=== PATIENT | female | born 1930 | race Caucasian/White ===

== ENCOUNTER 2017-09-25 08:00 | Outpatient (CLI) | payer MEDICARE, OTHER ==
[2017-09-25 12:59] LABS: BASOPHILS # (AUTO) 0.1 10^3/uL (0.0-0.1); BASOPHILS % (AUTO) 2.4 %; EOSINOPHILS # (AUTO) 0.1 10^3/uL (0.0-0.7); EOSINOPHILS % (AUTO) 2.4 %; LYMPHOCYTES % (AUTO) 17.8 %; MEAN CORPUSCULAR HEMOGLOBIN 32.6 pg (27.0-31.0); MEAN CORPUSCULAR HGB CONC 34.3 g/dL (32.0-36.0); MEAN CORPUSCULAR VOLUME 95.1 fL (81.0-99.0); MONOCYTES # (AUTO) 0.5 10^3/uL (0.0-1.0); MONOCYTES % (AUTO) 8.6 %; NEUTROPHILS % (AUTO) 68.8 %; PLT - PLATELET COUNT 225 10^3/uL (130-450); RED BLOOD COUNT 3.98 10^6/uL (4.20-5.40); RED CELL DISTRIBUTION WIDTH 13.5 % (12.0-15.0); WHITE BLOOD COUNT 5.8 x10^3/uL (4.8-10.8)
[2017-09-25 13:26] LABS: ALBUMIN 3.9 g/dL (3.2-5.5); ALBUMIN/GLOBULIN RATIO 1.4 (1.0-2.2); BILIRUBIN,TOTAL 0.4 mg/dL (0.2-1.0); CALCIUM 8.8 mg/dL (8.5-10.3); CREATININE 0.6 mg/dL (0.4-1.0); TOTAL PROTEIN 6.6 g/dL (6.7-8.2)
== END 2017-09-25 08:01 | disposition home or self-care (01) ==
LOC: LAB.R 08:00
PROVIDERS: ATTEND Internal Medicine
DX: R03.0 Elevated blood-pressure reading, without diagnosis of hypertension (principal)
CPT/HCPCS: 80053; 85025

== ENCOUNTER 2018-05-06 09:32 | Outpatient (CLI) | payer MEDICARE, OTHER ==
--- NOTE | 2018-05-06 09:57 | XRAY Report ---
Reason: PAIN LEFT WRIST Procedure Date: 05/06/2018 Accession Number: [id number] / [id number] Procedure: XR - Wrist 3 View LT CPT Code: FULL RESULT: EXAM: LEFT WRIST RADIOGRAPHY EXAM DATE: 05/06/2018 09:29 AM. CLINICAL HISTORY: PAIN LEFT WRIST and hand. Ground-level fall 4 days ago. COMPARISON: HAND 3 VIEW LT 05/06/2018. TECHNIQUE: 3 views. FINDINGS: Bones: Bones are diffusely demineralized. There is an acute fracture of the distal radial metaphysis. The fracture appears comminuted and likely extends to the distal articular surface. There is dorsal displacement of the distal fragment measuring approximately 17 mm. Dorsal angulation of the distal fragments measures approximately 22 degrees. There is impaction and shortening of the radius relative to the adjacent distal ulna. There is plate and screw hardware along the distal ulna consistent with prior fracture. No acute ulnar fracture visualized. Joints: The radiocarpal joint appears congruent. Soft Tissues: There is diffuse soft tissue swelling around the wrist. IMPRESSION: Acute displaced, impacted, and angulated comminuted fracture of the distal radius. There is probable intra-articular extension. RADIA
--- NOTE | 2018-05-06 10:00 | XRAY Report ---
Reason: PAIN LEFT WRIST Procedure Date: 05/06/2018 Accession Number: [id number] / [id number] Procedure: XR - Hand 3 View LT CPT Code: FULL RESULT: EXAM: LEFT HAND RADIOGRAPHY EXAM DATE: 05/06/2018 09:29 AM. CLINICAL HISTORY: PAIN LEFT WRIST AND HAND. GROUND-LEVEL FALL 4 DAYS AGO. COMPARISON: WRIST 3 VIEW LT 05/06/2018. TECHNIQUE: 3 views. FINDINGS: Bones: Diffusely demineralized. As seen on wrist radiographs, there is an acute comminuted impacted fracture of the distal radius with dorsal displacement and dorsal angulation of the distal fragment. There is plate and screw hardware along the distal ulna. The remainder of visualized bones of the hand appear intact. Joints: No dislocation. There are moderate to severe degenerative changes at multiple interphalangeal joints and metacarpophalangeal joints of the hand. Soft Tissues: There is soft tissue swelling around the wrist. IMPRESSION: 1. Acute, comminuted, impacted, displaced, and angulated fracture of the distal radius, as described on wrist radiographs. 2. The remainder of the visualized bones of the hand appear intact. Bones are diffusely demineralized. 3. 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 RADIA
== END 2018-05-06 09:33 | disposition home or self-care (01) ==
LOC: DI 09:32
PROVIDERS: ATTEND Internal Medicine
DX: S52.502A Unspecified fracture of the lower end of left radius, initial encounter for closed fracture (principal); M19.042 Primary osteoarthritis, left hand

== ENCOUNTER 2018-05-08 09:49 | Outpatient (CLI) | payer MEDICARE, OTHER | END 2018-05-08 09:50 | disposition critical access hospital (66) | LOC: EMS 09:49 | PROVIDERS: ATTEND Surgery | DX: M25.552 Pain in left hip (principal) | CPT/HCPCS: A0425; A0429 ==

== ENCOUNTER 2018-05-08 10:33 | Inpatient (IN) | payer MEDICARE, OTHER ==
[2018-05-08 11:21] LABS: BILIRUBIN,URINE NEGATIVE (NEGATIVE); GLUCOSE, URINE (UA) NEGATIVE (NEGATIVE); KETONES,URINE (UA) NEGATIVE (NEGATIVE); LEUKOCYTE ESTERASE, URINE MODERATE (NEGATIVE); NITRITE,URINE NEGATIVE (NEGATIVE); OCCULT BLOOD,URINE TRACE-INTA (NEGATIVE); PROTEIN,URINE NEGATIVE (NEGATIVE); UROBILINOGEN,URINE 0.2 (NORMAL) E.U./dL (NORMAL)
[2018-05-08 11:28] LABS: CLARITY,URINE CLEAR (CLEAR)
--- NOTE | 2018-05-08 11:38 | ED Physician Documentation ---
PD HPI LOWER EXT INJURY - Stated complaint Stated Complaint: HIP PX - Chief complaint Chief Complaint: Ext Problem - History obtained from History obtained from: Patient - History of Present Illness PD HPI LOW EXT INJURY LOCATION: Left, Hip Type of injury: Fall Where injury occurred: Home Timing - onset: How many days ago (5) Timing - duration: Days (5) Timing - details: Abrupt onset (She fell 5 days ago to her left side with a wrist injury and pain in her hip. She was helped by her back into the house. She has had a wrist deformity and waited to the next day to see her primary care. She had an outpatient wrist x-ray which showed a fracture and she was referred to orthopedics for reduction and splinting. She continued to have some limping pain on the left hip. This worsened today as she was standing up and felt an abrupt worsening of pain. She is now unable to walk on her left hip. She continues with the wrist splint on the left. She denies any injury to the abdomen chest or head.) Worsened by: Moving, Other (weight bearing, worse today) Associated symptoms: No: Weakness, Numbness Contributing factors: No: Anticoagulated, Prior ortho surgery Similar symptoms before: Has not had sx before Recently seen: Clinic (seen by PMD for the wrist injury after the fall, with Dx of wrist fracture and seen by Ortho for that, with splint.) Review of Systems Nose: denies: Rhinorrhea / runny nose, Congestion Throat: denies: Sore throat Respiratory: denies: Cough GI: denies: Abdominal Pain, Nausea, Vomiting, Diarrhea Musculoskeletal: reports: Extremity pain (left wrist and left hip) Neurologic: denies: Focal weakness, Numbness, Confused, Headache, Head injury Psychiatric: reports: Anxiety Endocrine: denies: Weight loss Immunocompromised: denies: Immunocompromised PD PAST MEDICAL HISTORY - Past Medical History Cardiovascular: None Respiratory: None Neuro: None Endocrine/Autoimmune: None HEENT: Glaucoma - Past Surgical History Past Surgical History: Yes 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, 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 HEENT: Tonsil/Adenoidectomy - Present Medications Home Medications: Ambulatory Orders Medication Instructions Recorded Confirmed Brimonidine 0.1% Ophth Drops 1 drop LEFTEYE BID 06/05/14 05/08/18 [Alphagan P 0.1% Ophth Drops] Latanoprost 0.005% Ophth Drops 1 drop LEFTEYE QPM 06/05/14 05/08/18 [Xalatan Ophth Drops] - Allergies Allergies/Adverse Reactions: Allergies Allergy/AdvReac Type Severity Reaction Status Date / Time Penicillins Allergy Hives Verified 06/05/14 09:47 Sulfa (Sulfonamide AdvReac Rash Verified 05/08/18 10:48 Antibiotics) - Living Situation Living Situation: reports: With spouse/s.o. Living Arrangement: reports: At home - Social History Does the pt smoke?: No Smoking Status: Never smoker Does the pt drink ETOH?: Yes Does the pt have substance abuse?: No PD ED PE NORMAL - Vitals Vital signs reviewed: Yes - General General: Alert and oriented X 3, No acute distress, Well developed/nourished - HEENT HEENT: Atraumatic - Neck Neck: Supple, no meningeal sign, No bony TTP, No adenopathy - Cardiac Cardiac: RRR, No murmur - Respiratory Respiratory: Clear bilaterally - Abdomen Abdomen: Normal bowel sounds, Soft, Non tender - Female Female : Deferred - Rectal Rectal: Deferred - Back Back: No CVA TTP, No spinal TTP - Derm Derm: Normal color, Warm and dry - Extremities Extremities: Other (Left wrist with splint in place, wrist tenderness and ecchymosis noted of wrist and dorsum hand. Has movement of fingers and good sensation. Left hip with pain on ROM and pain with impaction testing.) - Neuro Neuro: Alert and oriented X 3, No motor deficit, No sensory deficit, Normal speech Eye Opening: Spontaneous Motor: Obeys Commands Verbal: Oriented GCS Score: 15 - Psych Psych: Normal mood. No: Normal affect (anxious) Results - Vitals Vitals: Vital Signs - 24 hr 05/08/18 05/08/18 10:45 14:10 Temperature 36.3 C L Heart Rate 86 95 Respiratory 18 15 Rate Blood Pressure 195/88 H 155/77 H O2 Saturation 95 95 Oxygen O2 Source Room air - Labs Labs: Laboratory Tests 05/08/18 05/08/18 05/08/18 10:45 12:00 12:00 WBC 7.3 RBC 3.60 L Hgb 12.1 Hct 35.2 L MCV 98.0 MCH 33.6 H MCHC 34.3 RDW 13.1 Plt Count 245 MPV 7.7 L Neut # (Auto) 5.7 Lymph # (Auto) 0.7 L [place] # (Auto) 0.8 Eos # (Auto) 0.0 Baso # (Auto) 0.0 Absolute Nucleated RBC 0.00 Nucleated RBC % 0.0 PT 12.3 INR 1.1 APTT 24.7 L Sodium Potassium Chloride Carbon Dioxide Anion Gap BUN Creatinine Estimated GFR (MDRD) Glucose Calcium Total Bilirubin AST ALT Alkaline Phosphatase Total Protein Albumin Globulin Albumin/Globulin Ratio Lipase Urine Color YELLOW Urine Clarity CLEAR Urine pH 6.0 Ur Specific [place] <=1.005 Urine Protein NEGATIVE Urine Glucose (UA) NEGATIVE Urine Ketones NEGATIVE Urine Occult Blood TRACE-INTA Urine Nitrite NEGATIVE Urine Bilirubin NEGATIVE Urine Urobilinogen 0.2 (NORMAL) Ur Leukocyte Esterase MODERATE H Urine RBC 0-5 Urine WBC >25 H Urine WBC Clumps PRESENT Ur Squamous Epith Cells RARE Squamous Urine Bacteria Few Ur Microscopic Review INDICATED Urine Culture Comments INDICATED 05/08/18 12:00 WBC RBC Hgb Hct MCV MCH MCHC RDW Plt Count MPV Neut # (Auto) Lymph # (Auto) [place] # (Auto) Eos # (Auto) Baso # (Auto) Absolute Nucleated RBC Nucleated RBC % PT INR APTT Sodium 137 Potassium 3.6 Chloride 99 L Carbon Dioxide 26 Anion Gap 12.0 BUN 19 Creatinine 0.8 Estimated GFR (MDRD) 68 L Glucose 112 H Calcium 8.9 Total Bilirubin 1.0 AST 36 ALT 25 Alkaline Phosphatase 59 Total Protein 6.9 Albumin 3.7 Globulin 3.2 Albumin/Globulin Ratio 1.2 Lipase 34 Urine Color Urine Clarity Urine pH Ur Specific [place] Urine Protein Urine Glucose (UA) Urine Ketones Urine Occult Blood Urine Nitrite Urine Bilirubin Urine Urobilinogen Ur Leukocyte Esterase Urine RBC Urine WBC Urine WBC Clumps Ur Squamous Epith Cells Urine Bacteria Ur Microscopic Review Urine Culture Comments - Rads (name of study) left hip Radiology: Prelim report reviewed (left femoral neck fracture, displaced with shortening. ), EMP read contemporaneously PD MEDICAL DECISION MAKING - ED course Complexity details: reviewed results, re-evaluated patient, considered differential, d/w patient, d/w behavioral consultant (Dr. Banuelos) - Sepsis Event Vital Signs: Vital Signs - 24 hr 05/08/18 05/08/18 10:45 14:10 Temperature 36.3 C L Heart Rate 86 95 Respiratory 18 15 Rate Blood Pressure 195/88 H 155/77 H O2 Saturation 95 95 Oxygen O2 Source Room air Departure - Departure Disposition: 66 [facility] DC/Xfer Clinical Impression: Fall from slip, trip, or stumble Qualifiers: Encounter type: initial encounter Qualified Code(s): W01.0XXA - Fall on same level from slipping, tripping and stumbling without subsequent striking against object, initial encounter Femoral neck fracture Qualifiers: Encounter type: initial encounter Fracture type: closed Laterality: left Qualified Code(s): S72.002A - Fracture of unspecified part of neck of left femur, initial encounter for closed fracture Condition: Stable Record reviewed to determine appropriate education?: Yes
[2018-05-08 11:40] LABS: BACTERIA,URINE Few /HPF (None Seen); RBC,URINE 0-5 /HPF (0-5); SQUAMOUS EPITHELIAL CELL,UR RARE Squamous (<= Few); WBC CLUMPS,URINE PRESENT
[2018-05-08] MEDS ORDERED: ONDANSETRON 4 MG/2 ML VIAL IVP STA (11:45)
[2018-05-08] MEDS ORDERED: MORPHINE 10 MG/ML VIAL IVP STA ×2 (11:45→14:19)
--- NOTE | 2018-05-08 12:07 | XRAY Report ---
Reason: pain Procedure Date: 05/08/2018 Accession Number: [id number] / [id number] Procedure: XR - Hip w/Pelvis 2-3V LT CPT Code: FULL RESULT: EXAM: LEFT HIP AND PELVIS RADIOGRAPHY EXAM DATE: 05/08/2018 11:45 AM. HISTORY: Pain. COMPARISONS: None. TECHNIQUE: 1 view of the pelvis and 1 view of the hip. FINDINGS: Bones: There is a fracture of the left femoral neck with foreshortening of the femur of approximately 3 cm. Joints: Joint alignment appears normal. Soft Tissues: There is overlying soft tissue swelling. IMPRESSION: Left femoral neck fracture. Recommend orthopedic consultation as clinically indicated. Note: These results were discussed with Josie PIERRE on the day of the examination 05/08/2018 at 12:05 PM, and she expressed understanding. RADIA
[2018-05-08 12:11] LABS: BASOPHILS % (AUTO) 0.6 %; EOSINOPHILS % (AUTO) 0.4 %; HGB - HEMOGLOBIN 12.1 g/dL (12.0-16.0); LYMPHOCYTES # (AUTO) 0.7 10^3/uL (1.5-3.5); LYMPHOCYTES % (AUTO) 9.9 %; MEAN CORPUSCULAR HEMOGLOBIN 33.6 pg (27.0-31.0); MEAN CORPUSCULAR HGB CONC 34.3 g/dL (32.0-36.0); MEAN PLATELET VOLUME 7.7 fL (7.9-10.8); MONOCYTES # (AUTO) 0.8 10^3/uL (0.0-1.0); NEUTROPHILS # (AUTO) 5.7 10^3/uL (1.5-6.6); NEUTROPHILS % (AUTO) 78.1 %; PLT - PLATELET COUNT 245 10^3/uL (130-450); RED CELL DISTRIBUTION WIDTH 13.1 % (12.0-15.0); WHITE BLOOD COUNT 7.3 x10^3/uL (4.8-10.8)
[2018-05-08 12:23] LABS: ALBUMIN 3.7 g/dL (3.2-5.5); ALBUMIN/GLOBULIN RATIO 1.2 (1.0-2.2); CALCIUM 8.9 mg/dL (8.5-10.3); CREATININE 0.8 mg/dL (0.4-1.0); TOTAL PROTEIN 6.9 g/dL (6.7-8.2)
[2018-05-08 12:26] LABS: INR 1.1 (0.8-1.2); PT - PROTHROMBIN TIME 12.3 secs (9.9-12.6)
[2018-05-08] MEDS ORDERED: SODIUM CHLORIDE 0.9% 1,000 ML IV ONE (13:50)
[2018-05-08] MEDS ORDERED: cefTRIAXone 1 GM VIAL IVP STA (14:20)
--- NOTE | 2018-05-08 14:52 | PROVIDER PROGRESS NOTE ---
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 Initially treated for left distal radius fracture as outpt in splint with casting scheduled for next week. She also noted some left hip pain and painful gait following this fall but was ambulating with a single cane at home. Today there was additional fall but pain in left leg worsened. Prompted her ev aluation in ED where XR showed her displaced left subcapital hip fracture.) Subjective: Patient ELYSIA a GLF several days ago when she tripped over the corner of her trust and estates attorney (She is blind in left eye and poor vision in her right) Has been treated as an outpt i the office for her left nondominant distal radius fax in a splint. Hx of left distal ulna plating for a fracture years ago. Patient has noted some pain in left hip since her fall but has been able to ambulate at home with a single cane. This AM her left hip pain worsened when she arose from bed. No new injuries noted. Taken to ED where XR show left displaced subcapital hip fracture. Objective - Vital Signs/Intake & Output Vital Signs: Vital Signs x48h Temp Pulse Resp BP Pulse Ox 05/08/18 14:10 95 15 155/77 H 95 05/08/18 10:45 36.3 C L 86 18 195/88 H 95 - Lab Results Fish Bones: 05/08/18 12:00 05/08/18 12:00 Other Labs: Lab Results x24hrs 05/08/18 05/08/18 05/08/18 Range/Units 12:00 12:00 12:00 WBC 7.3 (4.8-10.8) x10^3/uL RBC 3.60 L (4.20-5.40) 10^6/uL Hgb 12.1 (12.0-16.0) g/dL Hct 35.2 L (37.0-47.0) % MCV 98.0 (81.0-99.0) fL MCH 33.6 H (27.0-31.0) pg MCHC 34.3 (32.0-36.0) g/dL RDW 13.1 (12.0-15.0) % Plt Count 245 (130-450) 10^3/uL MPV 7.7 L (7.9-10.8) fL Neut # (Auto) 5.7 (1.5-6.6) 10^3/uL Lymph # (Auto) 0.7 L (1.5-3.5) 10^3/uL [place] # (Auto) 0.8 (0.0-1.0) 10^3/uL Eos # (Auto) 0.0 (0.0-0.7) 10^3/uL Baso # (Auto) 0.0 (0.0-0.1) 10^3/uL Absolute Nucleated RBC 0.00 x10^3/uL Nucleated RBC % 0.0 /100WBC PT 12.3 (9.9-12.6) secs INR 1.1 (0.8-1.2) APTT 24.7 L (24.9-33.3) secs Sodium 137 (135-145) mmol/L Potassium 3.6 (3.5-5.0) mmol/L Chloride 99 L (101-111) mmol/L Carbon Dioxide 26 (21-32) mmol/L Anion Gap 12.0 (6-13) BUN 19 (6-20) mg/dL Creatinine 0.8 (0.4-1.0) mg/dL Estimated GFR (MDRD) 68 L (>89) Glucose 112 H (70-100) mg/dL Calcium 8.9 (8.5-10.3) mg/dL Total Bilirubin 1.0 (0.2-1.0) mg/dL AST 36 (10-42) IU/L ALT 25 (10-60) IU/L Alkaline Phosphatase 59 (42-121) IU/L Total Protein 6.9 (6.7-8.2) g/dL Albumin 3.7 (3.2-5.5) g/dL Globulin 3.2 (2.1-4.2) g/dL Albumin/Globulin Ratio 1.2 (1.0-2.2) Lipase 34 (22-51) U/L Urine Color Urine Clarity (CLEAR) Urine pH (5.0-7.5) PH Ur Specific [place] (1.002-1.030) Urine Protein (NEGATIVE) mg/dL Urine Glucose (UA) (NEGATIVE) mg/dL Urine Ketones (NEGATIVE) mg/dL Urine Occult Blood (NEGATIVE) Urine Nitrite (NEGATIVE) Urine Bilirubin (NEGATIVE) Urine Urobilinogen (NORMAL) E.U./dL Ur Leukocyte Esterase (NEGATIVE) Urine RBC (0-5) /HPF Urine WBC (0-5) /HPF Urine WBC Clumps Ur Squamous Epith Cells (<= Few) Urine Bacteria (None Seen) /HPF Ur Microscopic Review Urine Culture Comments 05/08/18 Range/Units 10:45 WBC (4.8-10.8) x10^3/uL RBC (4.20-5.40) 10^6/uL Hgb (12.0-16.0) g/dL Hct (37.0-47.0) % MCV (81.0-99.0) fL MCH (27.0-31.0) pg MCHC (32.0-36.0) g/dL RDW (12.0-15.0) % Plt Count (130-450) 10^3/uL MPV (7.9-10.8) fL Neut # (Auto) (1.5-6.6) 10^3/uL Lymph # (Auto) (1.5-3.5) 10^3/uL [place] # (Auto) (0.0-1.0) 10^3/uL Eos # (Auto) (0.0-0.7) 10^3/uL Baso # (Auto) (0.0-0.1) 10^3/uL Absolute Nucleated RBC x10^3/uL Nucleated RBC % /100WBC PT (9.9-12.6) secs INR (0.8-1.2) APTT (24.9-33.3) secs Sodium (135-145) mmol/L Potassium (3.5-5.0) mmol/L Chloride (101-111) mmol/L Carbon Dioxide (21-32) mmol/L Anion Gap (6-13) BUN (6-20) mg/dL Creatinine (0.4-1.0) mg/dL Estimated GFR (MDRD) (>89) Glucose (70-100) mg/dL Calcium (8.5-10.3) mg/dL Total Bilirubin (0.2-1.0) mg/dL AST (10-42) IU/L ALT (10-60) IU/L Alkaline Phosphatase (42-121) IU/L Total Protein (6.7-8.2) g/dL Albumin (3.2-5.5) g/dL Globulin (2.1-4.2) g/dL Albumin/Globulin Ratio (1.0-2.2) Lipase (22-51) U/L Urine Color YELLOW Urine Clarity CLEAR (CLEAR) Urine pH 6.0 (5.0-7.5) PH Ur Specific [place] <=1.005 (1.002-1.030) Urine Protein NEGATIVE (NEGATIVE) mg/dL Urine Glucose (UA) NEGATIVE (NEGATIVE) mg/dL Urine Ketones NEGATIVE (NEGATIVE) mg/dL Urine Occult Blood TRACE-INTA (NEGATIVE) Urine Nitrite NEGATIVE (NEGATIVE) Urine Bilirubin NEGATIVE (NEGATIVE) Urine Urobilinogen 0.2 (NORMAL) (NORMAL) E.U./dL Ur Leukocyte Esterase MODERATE H (NEGATIVE) Urine RBC 0-5 (0-5) /HPF Urine WBC >25 H (0-5) /HPF Urine WBC Clumps PRESENT Ur Squamous Epith Cells RARE Squamous (<= Few) Urine Bacteria Few (None Seen) /HPF Ur Microscopic Review INDICATED Urine Culture Comments INDICATED - Diagnostic Imaging Diagnostic Imaging Comments: XR shoqwed displaced left subcapital hip fracture - Other Results/Comments Other Results/Comments: XEXAM: Left hip is flexed and slightly externally rotated. Painful hip motion. Moves toes well. Sensation intact. Good cap filling. Left UE: In short volar splint. Mild swelling and ecchymosis seen. Moves fingers well. Sensatin intact Assessment/Plan - Problem List (1) Femoral neck fracture Impression: Subacute displaced left subcapital hip fracture S/P left nondominant dital radius fracture PLAN: To OR for cementless left bipolar hip endoprosthesis and application of left short arm cast. Risks and benefits of surgery explained, including blood loss, blood clots, infection, new fracture, hip dislocation, nerve damage, wound problems, etc. Questions answered. SHe wishes to proceed with surgery as planned as well as casting for her left wrist fracture. Consent signed. Leg marked. Qualifiers: Encounter type: initial encounter Fracture type: closed Laterality: left Qualified Code(s): S72.002A - Fracture of unspecified part of neck of left femur, initial encounter for closed fracture
--- NOTE | 2018-05-08 17:36 | CONSULTATION NOTE ---
DATE OF SERVICE: 05/08/2018 Physician: Giuseppe Banuelos MD REFERRING PHYSICIAN: Cole Quarles of the Emergency Room Department. CHIEF COMPLAINT: "My left hip and wrist hurt." HISTORY OF PRESENT ILLNESS: Marisol Pierre is an 87-year-old female who has rather poor vi dawn due to glaucoma, who apparently fell down several days ago when she tripped over the corner of [facility] at home. Her main complaint on presentation to the emergency room was a deformed painf ul left wrist. This was placed in a splint. She has been followed as an outpatient for this and has elected not to have surgical intervention. She has elected merely to have the fracture casted. She was put into a volar splint and scheduled for followup in about a week when the swelling had subside d for casting. In addition to her wrist injury, though she had noted some left leg pain primarily in the groin region on her left lower extremity. She was, however, able to ambulate at home with a can e. On the day of her admission; however, her pain escalated as she woke up and began her activities at home. Denies any new falls or other injuries, but the pain was much worse. She was taken to the emergency room where x-rays of her left hip showed a displaced subcapital hip fracture, left side. B ecause of her newly diagnosed fracture, she is being admitted to the hospitalist service for medical stabilization and clearance for upcoming hip surgery. PHYSICAL EXAMINATION: The patient is an elderly, thin, frail-appearing woman in mild distr ess. Her left upper extremity is in a short arm volar splint. Left arm shows that she is able to mo ve the fingers in her left hand. There is some mild swelling and ecchymosis seen in her hand and the portions visible from her splint. Neurovascular appears to be intact distally. The patient's left hip today shows tenderness on palpation of her left groin. Her leg is slightly sh ortened, externally rotated though she tends to hold it in the flexed position because this is the mo st comfortable position for her. She moves her toes well. Good capillary filling noted. Sensation appeared to be intact throughout the leg. X-RAYS: Show a displaced left subcapital hip fracture. ASSESSMENT: 1. Closed subacute displaced left subcapital hip fracture. 2. Status post closed left distal radius fracture. 3. Status post distal ulnar plating for a prior distal ulnar fracture in the past. 4. Glaucoma. PLAN: After the patient has been evaluated and stabilized medically, we will plan on taking her to [facility] operating room before surgical procedure for a left hip. Has had this tentatively scheduled on at 9 o'clock. We will plan on doing a cementless [employer] bipolar hip and the prostheses for a left hip fracture. Afterwards, we will then plan on fluoroscopically examining the position o f her left distal radius fracture and attempt any closed reduction as indicated. We then applied a s hort-arm cast at that point. The risks and benefits of surgery were explained to the patient and her . These risks include anesthesia risk, blood loss, nerve damage, infection, new fractures, h ip dislocation, blood clots, etc. All of their questions were answered. They wished to proceed with surgery as indicated. The leg was marked. Consent signed. TD: 05/08/2018 15:18
[2018-05-08] MEDS ORDERED: ONDANSETRON 4 MG/2 ML VIAL IVP PRN (21:01)
[2018-05-08] MEDS ORDERED: HYDROcod/ACETAM 5/325 MG TABLET PO PRN (21:01)
[2018-05-08] MEDS ORDERED: SODIUM CHLORIDE FLUSH 0.9% 10 ML SYRINGE IVP PRN (21:01)
[2018-05-08] MEDS: SODIUM CHLORIDE 0.9% 1,000 ML IV SCH (22:12)
[2018-05-08] MEDS ORDERED: MORPHINE 2 MG/ML SYRINGE IVP PRN (23:00)
--- NOTE | 2018-05-08 23:36 | HISTORY & PHYSICAL EXAMINATION ---
Chief Complaint - Chief Complaint Chief Complaint: left wrist and left hip pain History of Present Illness - History of Present Illness HPI Comment/Other: Patient is an 87 y/o female with history significant for glaucoma only, who presented to the ED with worsening pain in his left hip that is affecting her ability to walk. 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 She does not see well in the left eye and did not see the too. She went to see her PCP because of the wrist pain. Xray of the wrist had shown a fracture. She initially did not complain about the hip because the pain was mild. It has since progressed such that she is unable to bear weight now. In the ED, xray of the hip an pelvis showed a left femoral neck fracture, thus warranting her admission for intervention. She reports her pain about a 6/10. She denies chest pain, VICENTA, abd pain, nausea, vomiting or diarrhea. Her left hand/wrist is currently wrapped in bandage and very bruised/cyanotic appearing. 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 Meds/Allgy - Home Medications Home Medications: Ambulatory Orders Medication Instructions Recorded Confirmed Brimonidine 0.1% Ophth Drops 1 drop LEFTEYE BID 06/05/14 05/08/18 [Alphagan P 0.1% Ophth Drops] Latanoprost 0.005% Ophth Drops 1 drop LEFTEYE QPM 06/05/14 05/08/18 [Xalatan Ophth Drops] - Allergies Allergies/Adverse Reactions: Allergies Allergy/AdvReac Type Severity Reaction Status Date / Time Penicillins Allergy Hives Verified 06/05/14 09:47 Sulfa (Sulfonamide AdvReac Rash Verified 05/08/18 10:48 Antibiotics) Review of Systems - Constitutional Constitutional: denies: Fever, Chills, Malaise, Weakness, Poor appetite - Eyes Eyes: denies: Pain, Spots in vision, Vision loss, Dipolpia - Ears, Nose & Throat Ears, Nose & Throat: denies: Ear pain, Hearing loss, Nosebleeds, Nasal obstruction, Nasal congestion, Sore throat - Cardiovascular Cariovascular: denies: Irregular heart rate, Palpitations, Chest pain, Edema, Lightheadedness, Syncope - Respiratory Respiratory: denies: Cough, Sputum production, Wheezing, Snoring, Hemoptysis - Gastrointestinal Gastrointestinal: denies: Abdominal pain, Abdominal distention, Constipation, Diarrhea, Change in bowel habits, Rectal bleeding, Black stools, Nausea, Vomiting, Reflux/heartburn - Genitourinary Genitourinary: denies: Dysuria, Frequency, Urgency, Hematuria - Musculoskeletal Musculoskeletal: denies: Muscle pain, Back pain, Muscle aches - Integumentary Integumentary: denies: Rash, Pruritis, Lesions, Dryness - Neurological Neurological: denies: General weakness, Focal weakness, Headache, Dizziness, Numbness - Psychiatric Psychiatric: denies: Depression, Anxiety, Delusions, Hallucinations - Endocrine Endocrine: denies: Polyuria, Polydypsia - Hematologic/Lymphatic Hematologic/Lymphatic: denies: Anemia, Bruising, Petechiae, Blood clots Exam - Vital Signs Vital Signs: Vital Signs x48h Temp Pulse Pulse Resp BP BP Pulse Ox 05/08/18 21:34 37.6 C H 56 L 20 176/53 H 93 05/08/18 21:17 37.6 C H 91 16 176/85 H 94 05/08/18 17:39 37.1 C 83 20 160/85 H 91 L - Physical Exam General Appearance: positive: Moderate distress Eyes Bilateral: positive: Normal inspection, PERRL, EOMI, Conjunctivae nml, No scleral icterus ENT: positive: ENT inspection nml, Pharynx nml, No signs of dehydration Neck: positive: Nml inspection, Thyroid nml, No JVD, Trachea midline Respiratory: positive: Chest non-tender, No respiratory distress, Breath sounds nml. negative: Wheezes, Rales, Rhonchi Cardiovascular: positive: Regular rate & rhythm, No murmur, No gallop Abdomen: positive: Non-tender, No organomegaly, Nml bowel sounds, No distention. negative: Tenderness, Guarding, Rebound Back: positive: Nml inspection. negative: CVA tenderness (R), CVA tenderness (L) Extremities: positive: No pedal edema, Other (tenderness in left hip wrist currently splinted. appears bruised) Neurologic/Psychiatric: positive: Oriented x3, CN's nml (2-12), Motor nml, Sensation nml, Mood/affect nml Conclusion/Plan - Problem List (1) Fracture of femoral neck, left, closed Conclusion/Plan: Patient made npo IV hydration Pain management with morphine and/or norco Patient seen by Dr Banuelos. Potential surgery in the am Patient is in optimal function/ health for her age No further optimization is warranted prior to surgery (2) Distal radius fracture, left Conclusion/Plan: Pain management as above Left short wrist cast planned for tomorrow (3) Glaucoma Conclusion/Plan: Continue lantanoprost and brimonidine drops - Lab Results Fish Bones: 05/08/18 12:00 05/08/18 12:00 Core Measures - Anticipated LOS I expect patient to be DC'd or transferred within 96 hours.: Yes - DVT/VTE - Prophylaxis VTE/DVT Device ordered at admit?: Yes VTE/DVT Prophylaxis med ordered at admit?: No
[2018-05-09] MEDS ORDERED: SODIUM CHLORIDE FLUSH 0.9% 10 ML SYRINGE IVP SCH (01:00)
[2018-05-09 06:26] LABS: BASOPHILS % (AUTO) 0.5 %; EOSINOPHILS % (AUTO) 0.7 %; HGB - HEMOGLOBIN 10.4 g/dL (12.0-16.0); LYMPHOCYTES # (AUTO) 0.5 10^3/uL (1.5-3.5); LYMPHOCYTES % (AUTO) 8.4 %; MEAN CORPUSCULAR HEMOGLOBIN 33.4 pg (27.0-31.0); MEAN CORPUSCULAR VOLUME 98.2 fL (81.0-99.0); MEAN PLATELET VOLUME 7.7 fL (7.9-10.8); MONOCYTES # (AUTO) 0.8 10^3/uL (0.0-1.0); MONOCYTES % (AUTO) 12.7 %; NEUTROPHILS % (AUTO) 77.7 %; PLT - PLATELET COUNT 235 10^3/uL (130-450); RED BLOOD COUNT 3.11 10^6/uL (4.20-5.40); RED CELL DISTRIBUTION WIDTH 13.1 % (12.0-15.0); WHITE BLOOD COUNT 6.5 x10^3/uL (4.8-10.8)
[2018-05-09 06:54] LABS: CREATININE 0.6 mg/dL (0.4-1.0)
--- NOTE | 2018-05-09 08:20 | ANESTHESIA ---
Pre-Anesthesia VS, & Labs - Diagnosis fracture of left hip and left forearm - Procedure left hip hemiprosthesis, closed reduction left forearm placement of cast Vital Signs: Temp Pulse Resp BP Pulse Ox 36.4 C L 95 18 143/71 H 92 05/09/18 03:42 05/09/18 00:00 05/09/18 00:00 05/09/18 00:00 05/09/18 00:00 Height 5 ft 5 in Weight (kg) 44 kg Body Mass Index 16.1 - NPO >8 hours - Is Patient ?: Not Applicable - Lab Results Fish Bones: 05/09/18 06:15 05/09/18 06:15 Home Medications and Allergies Home Medications: Ambulatory Orders Medication Instructions Recorded Confirmed Brimonidine 0.1% Ophth Drops 1 drop LEFTEYE BID 06/05/14 05/08/18 [Alphagan P 0.1% Ophth Drops] Latanoprost 0.005% Ophth Drops 1 drop LEFTEYE QPM 06/05/14 05/08/18 [Xalatan Ophth Drops] Allergies/Adverse Reactions: Allergies Allergy/AdvReac Type Severity Reaction Status Date / Time Penicillins Allergy Hives Verified 06/05/14 09:47 Sulfa (Sulfonamide AdvReac Rash Verified 05/08/18 10:48 Antibiotics) Anes History & Medical History - Anesthetic History Anesthesia Complications: reports: No previous complications Family history of Anesthesia Complications: Denies Family history of Malignant Hyperthermia: Denies - Medical History Cardiovascular: reports: None, Other (fasicular block, 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) Pulmonary: reports: None Gastrointestinal: reports: None, C.difficile Urinary: reports: None Neuro: reports: None, Other (glaucoma) Musculoskeletal: reports: None Endocrine/Autoimmune: reports: None Blood Disorders: reports: None Skin: reports: None Smoking Status: Never smoker - Surgical History General: Appendectomy Eyes Ears Nose Throat (EENT): Tonsil/Adenoidectomy Gynecologic: section, 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 Exam General: Alert, Oriented x3, Cooperative, No acute distress Dental: Loose/Frag Mouth Openin Fingerbreadth Mallampati classification: III Thyromental Distance: 4-6 cm Respiratory: Rales Cardiovascular: Regular rate Cognitive Status: Within normal limits Plan Anesthesia Type: General, Spinal Consent for Procedure(s) Verified and Reviewed: Yes Code Status: Attempt Resuscitation ASA classification: 2-Mild systemic disease Is this case an emergency?: No
[2018-05-09] MEDS: SODIUM CHLORIDE 0.9% 1,000 ML IV SCH (08:25)
--- NOTE | 2018-05-09 08:44 | PROVIDER PROGRESS NOTE ---
Subjective - Prog Note Date Prog Note Date: 05/09/18 Prog Note Time: 08:40 - Subjective Pt reports feeling: No change Objective - Vital Signs/Intake & Output Vital Signs: Vital Signs x48h Temp Pulse Resp BP Pulse Ox 05/09/18 08:00 36.9 C 88 14 159/77 H 89 L 05/09/18 03:42 36.4 C L Intake & Output: Intake & Output 05/06/18 05/07/18 05/08/18 05/09/18 23:59 23:59 23:59 23:59 Intake Total 1050 1000.000 Output Total 100 250 Balance 950 750.000 - Lab Results Fish Bones: 05/09/18 06:15 05/09/18 06:15 Other Labs: Lab Results x24hrs 05/09/18 05/09/18 05/08/18 Range/Units 06:15 06:15 15:22 WBC 6.5 (4.8-10.8) x10^3/uL RBC 3.11 L (4.20-5.40) 10^6/uL Hgb 10.4 L (12.0-16.0) g/dL Hct 30.5 L (37.0-47.0) % MCV 98.2 (81.0-99.0) fL MCH 33.4 H (27.0-31.0) pg MCHC 34.0 (32.0-36.0) g/dL RDW 13.1 (12.0-15.0) % Plt Count 235 (130-450) 10^3/uL MPV 7.7 L (7.9-10.8) fL Neut # (Auto) 5.0 (1.5-6.6) 10^3/uL Lymph # (Auto) 0.5 L (1.5-3.5) 10^3/uL Dickenson # (Auto) 0.8 (0.0-1.0) 10^3/uL Eos # (Auto) 0.0 (0.0-0.7) 10^3/uL Baso # (Auto) 0.0 (0.0-0.1) 10^3/uL Absolute Nucleated RBC 0.00 x10^3/uL Nucleated RBC % 0.0 /100WBC PT (9.9-12.6) secs INR (0.8-1.2) APTT (24.9-33.3) secs Sodium 136 (135-145) mmol/L Potassium 3.6 (3.5-5.0) mmol/L Chloride 105 (101-111) mmol/L Carbon Dioxide 24 (21-32) mmol/L Anion Gap 7.0 (6-13) BUN 18 (6-20) mg/dL Creatinine 0.6 (0.4-1.0) mg/dL Estimated GFR (MDRD) 94 (>89) Glucose 108 H (70-100) mg/dL Calcium 8.0 L (8.5-10.3) mg/dL Total Bilirubin (0.2-1.0) mg/dL AST (10-42) IU/L ALT (10-60) IU/L Alkaline Phosphatase (42-121) IU/L Total Protein (6.7-8.2) g/dL Albumin (3.2-5.5) g/dL Globulin (2.1-4.2) g/dL Albumin/Globulin Ratio (1.0-2.2) Lipase (22-51) U/L Urine Color Urine Clarity (CLEAR) Urine pH (5.0-7.5) PH Ur Specific Tyrone (1.002-1.030) Urine Protein (NEGATIVE) mg/dL Urine Glucose (UA) (NEGATIVE) mg/dL Urine Ketones (NEGATIVE) mg/dL Urine Occult Blood (NEGATIVE) Urine Nitrite (NEGATIVE) Urine Bilirubin (NEGATIVE) Urine Urobilinogen (NORMAL) E.U./dL Ur Leukocyte Esterase (NEGATIVE) Urine RBC (0-5) /HPF Urine WBC (0-5) /HPF Urine WBC Clumps Ur Squamous Epith Cells (<= Few) Urine Bacteria (None Seen) /HPF Ur Microscopic Review Urine Culture Comments Blood Type O POSITIVE Blood Type Recheck Antibody Screen NEGATIVE 05/08/18 05/08/18 05/08/18 Range/Units 12:00 12:00 12:00 WBC (4.8-10.8) x10^3/uL RBC (4.20-5.40) 10^6/uL Hgb (12.0-16.0) g/dL Hct (37.0-47.0) % MCV (81.0-99.0) fL MCH (27.0-31.0) pg MCHC (32.0-36.0) g/dL RDW (12.0-15.0) % Plt Count (130-450) 10^3/uL MPV (7.9-10.8) fL Neut # (Auto) (1.5-6.6) 10^3/uL Lymph # (Auto) (1.5-3.5) 10^3/uL Dickenson # (Auto) (0.0-1.0) 10^3/uL Eos # (Auto) (0.0-0.7) 10^3/uL Baso # (Auto) (0.0-0.1) 10^3/uL Absolute Nucleated RBC x10^3/uL Nucleated RBC % /100WBC PT 12.3 (9.9-12.6) secs INR 1.1 (0.8-1.2) APTT 24.7 L (24.9-33.3) secs Sodium 137 (135-145) mmol/L Potassium 3.6 (3.5-5.0) mmol/L Chloride 99 L (101-111) mmol/L Carbon Dioxide 26 (21-32) mmol/L Anion Gap 12.0 (6-13) BUN 19 (6-20) mg/dL Creatinine 0.8 (0.4-1.0) mg/dL Estimated GFR (MDRD) 68 L (>89) Glucose 112 H (70-100) mg/dL Calcium 8.9 (8.5-10.3) mg/dL Total Bilirubin 1.0 (0.2-1.0) mg/dL AST 36 (10-42) IU/L ALT 25 (10-60) IU/L Alkaline Phosphatase 59 (42-121) IU/L Total Protein 6.9 (6.7-8.2) g/dL Albumin 3.7 (3.2-5.5) g/dL Globulin 3.2 (2.1-4.2) g/dL Albumin/Globulin Ratio 1.2 (1.0-2.2) Lipase 34 (22-51) U/L Urine Color Urine Clarity (CLEAR) Urine pH (5.0-7.5) PH Ur Specific Tyrone (1.002-1.030) Urine Protein (NEGATIVE) mg/dL Urine Glucose (UA) (NEGATIVE) mg/dL Urine Ketones (NEGATIVE) mg/dL Urine Occult Blood (NEGATIVE) Urine Nitrite (NEGATIVE) Urine Bilirubin (NEGATIVE) Urine Urobilinogen (NORMAL) E.U./dL Ur Leukocyte Esterase (NEGATIVE) Urine RBC (0-5) /HPF Urine WBC (0-5) /HPF Urine WBC Clumps Ur Squamous Epith Cells (<= Few) Urine Bacteria (None Seen) /HPF Ur Microscopic Review Urine Culture Comments Blood Type Blood Type Recheck O POSITIVE Antibody Screen 05/08/18 05/08/18 Range/Units 12:00 10:45 WBC 7.3 (4.8-10.8) x10^3/uL RBC 3.60 L (4.20-5.40) 10^6/uL Hgb 12.1 (12.0-16.0) g/dL Hct 35.2 L (37.0-47.0) % MCV 98.0 (81.0-99.0) fL MCH 33.6 H (27.0-31.0) pg MCHC 34.3 (32.0-36.0) g/dL RDW 13.1 (12.0-15.0) % Plt Count 245 (130-450) 10^3/uL MPV 7.7 L (7.9-10.8) fL Neut # (Auto) 5.7 (1.5-6.6) 10^3/uL Lymph # (Auto) 0.7 L (1.5-3.5) 10^3/uL Dickenson # (Auto) 0.8 (0.0-1.0) 10^3/uL Eos # (Auto) 0.0 (0.0-0.7) 10^3/uL Baso # (Auto) 0.0 (0.0-0.1) 10^3/uL Absolute Nucleated RBC 0.00 x10^3/uL Nucleated RBC % 0.0 /100WBC PT (9.9-12.6) secs INR (0.8-1.2) APTT (24.9-33.3) secs Sodium (135-145) mmol/L Potassium (3.5-5.0) mmol/L Chloride (101-111) mmol/L Carbon Dioxide (21-32) mmol/L Anion Gap (6-13) BUN (6-20) mg/dL Creatinine (0.4-1.0) mg/dL Estimated GFR (MDRD) (>89) Glucose (70-100) mg/dL Calcium (8.5-10.3) mg/dL Total Bilirubin (0.2-1.0) mg/dL AST (10-42) IU/L ALT (10-60) IU/L Alkaline Phosphatase (42-121) IU/L Total Protein (6.7-8.2) g/dL Albumin (3.2-5.5) g/dL Globulin (2.1-4.2) g/dL Albumin/Globulin Ratio (1.0-2.2) Lipase (22-51) U/L Urine Color YELLOW Urine Clarity CLEAR (CLEAR) Urine pH 6.0 (5.0-7.5) PH Ur Specific Tyrone <=1.005 (1.002-1.030) Urine Protein NEGATIVE (NEGATIVE) mg/dL Urine Glucose (UA) NEGATIVE (NEGATIVE) mg/dL Urine Ketones NEGATIVE (NEGATIVE) mg/dL Urine Occult Blood TRACE-INTA (NEGATIVE) Urine Nitrite NEGATIVE (NEGATIVE) Urine Bilirubin NEGATIVE (NEGATIVE) Urine Urobilinogen 0.2 (NORMAL) (NORMAL) E.U./dL Ur Leukocyte Esterase MODERATE H (NEGATIVE) Urine RBC 0-5 (0-5) /HPF Urine WBC >25 H (0-5) /HPF Urine WBC Clumps PRESENT Ur Squamous Epith Cells RARE Squamous (<= Few) Urine Bacteria Few (None Seen) /HPF Ur Microscopic Review INDICATED Urine Culture Comments INDICATED Blood Type Blood Type Recheck Antibody Screen - Other Results/Comments Other Results/Comments: Exam: Unchanged. Still painful hip motion. N/V ok distally Assessment/Plan - Problem List (1) Femoral neck fracture Impression: Stable for surgery to hip this AM PLAN: proceed with OR this AM. Qualifiers: Encounter type: initial encounter Fracture type: closed Laterality: left Qualified Code(s): S72.002A - Fracture of unspecified part of neck of left femur, initial encounter for closed fracture
[2018-05-09] MEDS ORDERED: KETAMINE 500 MG/10 ML VIAL ONE (08:52)
[2018-05-09] MEDS ORDERED: ceFAZolin 2 GM/50 ML 2 GM/50 ML BAG IV SCH (09:00)
[2018-05-09] MEDS ORDERED: BUPIVACAINE 0.25% PF 30 ML VIAL ONE ×2 (09:02→09:22)
--- NOTE | 2018-05-09 09:14 | XRAY Report ---
Reason: bilateral low lobe crackles, fever Procedure Date: 05/09/2018 Accession Number: [id number] / [id number] Procedure: XR - Chest 1 View X-Ray CPT Code: 20232 FULL RESULT: EXAM: CHEST RADIOGRAPHY EXAM DATE: 05/09/2018 08:54 AM. CLINICAL HISTORY: Bilateral low lobe crackles, fever. COMPARISON: None. TECHNIQUE: 1 view. FINDINGS: Lungs/Pleura: No focal opacities evident. There is mild pulmonary vascular congestion and diffuse bilateral interstitial prominence. No pleural effusion. No pneumothorax. Mediastinum: There is borderline enlargement of the cardiac silhouette. Other: No acute osseous abnormality. IMPRESSION: 1. Mild pulmonary vascular congestion. Mild diffuse bilateral interstitial prominence suggests mild interstitial edema. 2. Borderline enlargement of the cardiac silhouette. 3. No focal pulmonary consolidation. RADIA
[2018-05-09] MEDS ORDERED: BUPIVACAINE 0.25%-EPI 1:200000 PF 30 ML VIAL ONE (09:33)
[2018-05-09] MEDS ORDERED: BUPIVACAINE 0.25%-EPI 1:200000 PF 30 ML VIAL SUBQ ONE ×2 (10:25)
[2018-05-09] MEDS ORDERED: LACTATED RINGERS 1,000 ML IV ONE ×2 (10:29→12:00)
[2018-05-09] MEDS ORDERED: ceFAZolin 1 GM VIAL IV ONE (11:41)
[2018-05-09] MEDS ORDERED: PHENYLEPHRINE 50 MG/5 ML VIAL IV ONE (11:41)
[2018-05-09] MEDS ORDERED: PROPOFOL 200 MG/20 ML VIAL IVP ONE (11:41)
[2018-05-09] MEDS ORDERED: PROCHLORPERAZINE 10 MG/2 ML VIAL IVP PRN (11:58)
[2018-05-09] MEDS ORDERED: DOCUSATE SODIUM 100 MG CAPSULE PO PRN (11:58)
[2018-05-09] MEDS ORDERED: SENNA 8.6 MG TABLET PO PRN (11:58)
[2018-05-09] MEDS ORDERED: MORPHINE 2 MG/ML CARPUJECT IVP PRN (11:58)
[2018-05-09] MEDS ORDERED: ACETAMINOPHEN 1,000 MG/100 ML 100 ML IV PRN (11:58)
[2018-05-09] MEDS ORDERED: ONDANSETRON 4 MG/2 ML VIAL IVP PRN (11:58)
--- NOTE | 2018-05-09 12:12 | OPERATIVE REPORT ---
Operative Report - General Admit Date: 05/08/18 Procedure Date: 05/09/18 Planned Procedure: Cementless left Syngery bipolar hip endoprosthesis; SAC for left wrist fx Pre-Op Diagnosis: Displaced left subcapital hip fracture; angulated left distal radius fractu Procedure Performed: Cementless Synergy bipolar hip endoprosthesis; closed reduction and short arm casting of left distal radius fracture Post Op Diagnosis: Same - Procedure Note Primary Surgeon: Amish Banuleos MD Anesthesia Provider: Teddy Long CRNA Anesthesia Technique: Spinal IV Fluids (mL): 1,000 Estimated Blood Loss (mL): 300 Urine Output (mL): 300 Complications: None
[2018-05-09] MEDS: POLYETHYLENE GLYCOL 3350 17 GM PACKET PO SCH (12:44)
[2018-05-09] MEDS: BRIMONIDINE 0.1% OPHTH DROPS 5 ML LEFTEYE SCH ×2 (12:44→20:11)
--- NOTE | 2018-05-09 13:14 | XRAY Report ---
Reason: S/p closed reduction and short casting of left Procedure Date: 05/09/2018 Accession Number: [id number] / [id number] Procedure: XR - Wrist 2 View LT CPT Code: FULL RESULT: EXAM: LEFT WRIST RADIOGRAPHY EXAM DATE: 05/09/2018 12:31 PM. CLINICAL HISTORY: S/p closed reduction and short casting of left. COMPARISON: Left wrist 05/06/2018. TECHNIQUE: 3 views. FINDINGS: Plate and screws are present in the distal ulna. Distal radius fracture demonstrates improved alignment. Alignment appears near-anatomic. IMPRESSION: Improved alignment of distal radius fracture. Plate and screws are in place in the distal ulna. RADIA
--- NOTE | 2018-05-09 13:16 | XRAY Report ---
Reason: POST OP left bipolar hip endoprosthesis Procedure Date: 05/09/2018 Accession Number: [id number] / [id number] Procedure: XR - Pelvis 1 View CPT Code: FULL RESULT: EXAM: PELVIS RADIOGRAPHY EXAM DATE: 05/09/2018 12:31 PM. CLINICAL HISTORY: POST OP left bipolar hip endoprosthesis. COMPARISON: Pelvis 05/08/2018. TECHNIQUE: 1 view. FINDINGS: Left hip prosthesis is in place. Alignment appears anatomic. Cutaneous silvana are noted. Soft tissue air is an unexpected postsurgical finding. IMPRESSION: Left hip prosthesis in anatomic alignment RADIA
--- NOTE | 2018-05-09 15:37 | PROCEDURE REPORT ---
DATE OF SERVICE: Physician: Giuseppe Banuelos MD DATE OF PROCEDURE: 05/09/2018 PREOPERATIVE DIAGNOSIS: Displaced left subcapital hip fracture; angulated left distal radius fracture. POSTOPERATIVE DIAGNOSIS: Displaced left subcapital hip fracture; angulated left distal radius fracture. PROCEDURE PERFORMED: Cementless Synergy bipolar left hip and the prostheses; closed reduction and application of short arm cast for left distal radius fracture. SURGEON: Giuseppe Banuelos MD ANESTHESIA: Spinal and MAC. DESCRIPTION OF PROCEDURE: Patient was taken to the operating room on the morning of 05/09/2018, where she was placed under spinal anesthetic and a light sedation/MAC for our procedures. Once anesthetized, we positioned her onto the pegboard positioning lateral decubitus, left side up. In this position she was held on the pegboard. Care was taken to place an axillary roll under her right axilla and proper padding done both for her legs and about the PEG support systems of the positioning board. Once satisfied with her positioning, we then prepped and draped her left hip and leg in the usual fashion for our procedure. A curvilinear skin incision was then made overlying the greater trochanter with a typical posterolateral approach to the hip. Hemostasis was obtained with electrocautery as we incised the subcutaneous tissues, the tensor fascia gabrielle and detached the short external rotators using electrocautery. Once hemostasis was obtained, we then performed the proximal femoral osteotomies using the femoral cutting guide from the Synergy hip set to help with the location of our osteotomy using an oscillating saw. We then made a T-type incision in the capsule tagging the 2 flaps with 2-0 Vicryl stay stitches. This allowed better exposure to the hip joint. A hip screw extractor was then screwed into the femoral head. With the assistance of a hip skid, we were able to dislocate the femoral head from the acetabulum. Using the calipers in the set we determined a 47 mm head would be the most likely choice. We then cleared the acetabulum of the soft tissue and bony fragments using a rongeur. Irrigation was then done with a pulse lavage in the acetabulum. Next, we were prepared the proximal femur. Using a box osteotome, we removed the bone in the lateral aspect of our osteotomized proximal femur. We then used a Charnley awl to determine the direction of the femoral canal. We then sequentially reamed the proximal femur using the rigid reamers, starting with 9 mm, advancing to 14 mm. This was where we met with resistance and were reaming quite extensively at this level. Next, we then sequentially broached the proximal femur starting with 12 broach moving on to the 13, then the 14 mm broach. This seated into the proximal femur well and felt to be a good fit. Leaving the broach in the femoral canal we then attempted a trial reduction of the hip using a 0 neck length and a 47 mm outside diameter head. Reducing this into the acetabulum we then checked the hip. It appeared as if the legs were out to length with this set up. We were able to have minimal pistoning with axial loading and traction on the leg, the leg was able to fully extend in external rotation. Able to put the leg in sleep position. Finally, with the hip in neutral abduction and flexed to 90 degrees, we were able to internally rotate the leg to greater than 70-75 degrees without subluxation of the hip. We were satisfied with the trial prosthesis in place. We then removed the trial femoral head prostheses out. Leaving the broach still within the proximal femur we then reamed the calcar with a calcar reamer. Once this was done, we then removed the broach from the femoral canal. We then irrigated the proximal femur and acetabulum with a pulse lavage. Once this was irrigated out thoroughly, we then inserted the permanent prostheses. This was composed of the 14 mm porous coated femoral component for the proximal femur; a 0 neck length and 28 mm inside head and a 47 mm outside head bipolar prosthesis component. We inserted the femoral prostheses into the prepared proximal femur getting good clinical contact of the prostheses in the femoral shaft and down to where it met our osteotomy site. We then applied the bipolar component onto the femoral stem. This was anchored in place using the hip pusher and mallet. Once the components were engaged, we then reduced the hip into the acetabulum easily. We then checked again the hip for stability. The leg lengths appeared to be equal. We were able to fully extend the hip easily with it externally rotated. Sleep position was stable. Then with the hip in neutral abduction, we then internally rotated the leg to 70 degrees with the hip flexed at 90 degrees. Satisfied with the stability and the length of our legs, we then proceeded to irrigate the wound out thoroughly with pulse lavage irrigation. We then closed the wound in layers, first reattaching the capsular flaps with 2-0 Vicryl stay stitches using a free needle. Next, the fascia gabrielle layer was closed with [id number] stitches of 0 Vicryl. Subcutaneous tissue was closed with buried simple stitches of 2-0 Vicryl sutures. Skin silvana used to approximate the skin edge. We then dressed the wound with Xeroform gauze, 4 x 4's and Tegaderm dressings. The patient was then positioned supine with a hip abductor pillow between her legs. Next, we removed the volar splint from her left distal radius. X-rays with the mini C-arm fluoroscopy machine showed that the fracture was still slightly shortened and angulated. With gentle reduction maneuver, the position was much improved with improvement in the angulation and only mild shortening of the radius. This was acceptable. We then applied a short arm cast molding to try to maintain this reduction. Fluoroscopic views of the wrist showed again similar improve reduction of our distal radius fracture. This was felt to be acceptable as the patient preferred no operative procedures to her wrist. The patient was then awoken from anesthetic and taken to the recovery room in satisfactory condition. ESTIMATED BLOOD LOSS: 300 mL REPLACEMENT: 1000 mL crystalloid. INTRAOPERATIVE COMPLICATIONS: None. PLAN: The patient will be started on a walker ambulation, weightbearing as tolerated to the left lower extremity. Total hip precautions were noted. We will likely have her go with a platform attached to her walker during her. TD: 05/09/2018 12:41 INOCENTE
[2018-05-09] MEDS: ceFAZolin 2 GM/50 ML 2 GM/50 ML BAG IV SCH (16:50)
[2018-05-09] MEDS: SODIUM CHLORIDE FLUSH 0.9% 10 ML SYRINGE IVP SCH (16:50)
[2018-05-09] MEDS ORDERED: ASPIRIN 325 MG TABLET PO SCH (17:00)
[2018-05-09] MEDS: ACETAMINOPHEN 325 MG TABLET PO PRN (17:37)
[2018-05-09] MEDS: CHOLECALCIFEROL 1,000 UNIT TABLET PO SCH (20:11)
[2018-05-09] MEDS: CALCIUM CITRATE 250 MG TABLET PO SCH (20:11)
[2018-05-09] MEDS: LATANOPROST 0.005% OPHTH DROPS LEFTEYE SCH (20:13)
[2018-05-09] MEDS: oxyCODONE 5 MG TABLET PO PRN (22:22)
[2018-05-10] MEDS: ceFAZolin 2 GM/50 ML 2 GM/50 ML BAG IV SCH (01:08)
[2018-05-10] MEDS: SODIUM CHLORIDE FLUSH 0.9% 10 ML SYRINGE IVP SCH ×3 (01:09→15:59)
[2018-05-10] MEDS: ACETAMINOPHEN 325 MG TABLET PO PRN ×2 (03:41→15:58)
[2018-05-10] MEDS ORDERED: METOPROLOL 5 MG/5 ML VIAL IVP SCH (04:17)
[2018-05-10] MEDS ORDERED: SODIUM CHLORIDE 0.9% 500 ML IV ONE (05:02)
[2018-05-10] MEDS ORDERED: METOPROLOL 5 MG/5 ML VIAL IVP STA (05:02)
[2018-05-10] MEDS ORDERED: SODIUM CHLORIDE FLUSH 0.9% 10 ML SYRINGE ONE (05:36)
[2018-05-10 06:13] LABS: BASOPHILS % (AUTO) 0.5 %; EOSINOPHILS % (AUTO) 0.2 %; HGB - HEMOGLOBIN 9.8 g/dL (12.0-16.0); LYMPHOCYTES # (AUTO) 0.5 10^3/uL (1.5-3.5); LYMPHOCYTES % (AUTO) 5.7 %; MEAN CORPUSCULAR HEMOGLOBIN 33.2 pg (27.0-31.0); MEAN CORPUSCULAR HGB CONC 33.9 g/dL (32.0-36.0); MEAN CORPUSCULAR VOLUME 97.9 fL (81.0-99.0); MEAN PLATELET VOLUME 7.3 fL (7.9-10.8); MONOCYTES % (AUTO) 11.5 %; NEUTROPHILS # (AUTO) 7.4 10^3/uL (1.5-6.6); NEUTROPHILS % (AUTO) 82.1 %; PLT - PLATELET COUNT 281 10^3/uL (130-450); RED BLOOD COUNT 2.96 10^6/uL (4.20-5.40); RED CELL DISTRIBUTION WIDTH 13.1 % (12.0-15.0)
[2018-05-10 06:16] LABS: CALCIUM 7.9 mg/dL (8.5-10.3); CREATININE 0.6 mg/dL (0.4-1.0)
[2018-05-10] MEDS ORDERED: diltiaZEM INJ 5 MG/ML VIAL IVP SCH (06:26)
[2018-05-10] MEDS: SODIUM CHLORIDE FLUSH 0.9% 10 ML SYRINGE IVP PRN (07:08)
--- NOTE | 2018-05-10 07:44 | PROVIDER PROGRESS NOTE ---
Subjective - Prog Note Date Prog Note Date: 05/09/18 Prog Note Time: 10:00 - Subjective Pt reports feeling: Improved Subjective: Marisol is sleepy on exam and has no complaints. She denies chest pain, nausea, vomiting, or a new cough. Objective - Vital Signs/Intake & Output Reviewed Vital Signs: Yes Vital Signs: Vital Signs x48h Temp Pulse Resp BP BP Pulse Ox 05/10/18 07:26 37.1 C 139 H 24 115/66 92 05/10/18 07:17 97 106/66 05/10/18 07:16 106 H 95/62 05/10/18 07:10 137 H 117/75 05/10/18 07:05 125/87 H 05/10/18 07:02 125/87 H 05/10/18 06:51 133 H 134/70 H 05/10/18 06:36 136 H 133/72 H 05/10/18 06:19 135 H 123/72 05/10/18 06:15 132 H 134/76 H 05/10/18 06:09 132 H 135/77 H 05/10/18 06:03 133 H 126/79 05/10/18 05:59 131 H 127/73 05/10/18 05:43 145/64 H 05/10/18 05:41 135 H 145/64 H 05/10/18 05:31 130 H 120/68 05/10/18 05:15 132 H 114/76 05/10/18 05:05 127 H 137/67 H 05/10/18 05:01 129 H 112/77 05/10/18 04:56 107 H 126/68 94 05/10/18 04:51 131 H 129/72 05/10/18 04:37 140/70 H 05/10/18 04:36 36.7 C 140 H 18 140/70 H 93 05/10/18 03:44 37.6 C H 144 H 05/10/18 03:04 37.3 C 137 H 18 136/70 H 95 05/09/18 23:45 36.9 C 92 16 145/69 H 92 Intake & Output: Intake & Output 05/07/18 05/08/18 05/09/18 05/10/18 23:59 23:59 23:59 23:59 Intake Total 1050 2158.000 790 Output Total 100 650 350 Balance 950 1508.000 440 - Objective General Appearance: positive: No acute distress, Alert, Lethargic Eyes Bilateral: positive: No lid inflammation ENT: positive: ENT inspection nml, Pharynx nml, No signs of dehydration Neck: positive: Nml inspection, Thyroid nml, No JVD Respiratory: positive: Chest non-tender, No respiratory distress, Other (diminshed with scattered crackles.) Cardiovascular: positive: Regular rate & rhythm, No gallop, Systolic murmur Peripheral Pulses: 1+ Radial (R), 1+ Radial (L) Abdomen: positive: Non-tender, Nml bowel sounds Back: positive: Nml inspection Skin: positive: No rash, Warm, Dry Extremities: positive: Non-tender, Full ROM, Joint swelling Neurologic/Psychiatric: positive: CN's nml (2-12), Motor nml, Sensation nml Reflexes: Bicep (R): 2+, Bicep (L): 1+ - Lab Results Fish Bones: 05/10/18 06:00 05/10/18 06:00 Other Labs: Lab Results x24hrs 05/10/18 05/10/18 05/10/18 Range/Units 06:00 06:00 06:00 WBC (4.8-10.8) x10^3/uL RBC (4.20-5.40) 10^6/uL Hgb (12.0-16.0) g/dL Hct (37.0-47.0) % MCV (81.0-99.0) fL MCH (27.0-31.0) pg MCHC (32.0-36.0) g/dL RDW (12.0-15.0) % Plt Count (130-450) 10^3/uL MPV (7.9-10.8) fL Neut # (Auto) (1.5-6.6) 10^3/uL Lymph # (Auto) (1.5-3.5) 10^3/uL [place] # (Auto) (0.0-1.0) 10^3/uL Eos # (Auto) (0.0-0.7) 10^3/uL Baso # (Auto) (0.0-0.1) 10^3/uL Absolute Nucleated RBC x10^3/uL Nucleated RBC % /100WBC Sodium 133 L (135-145) mmol/L Potassium 3.3 L (3.5-5.0) mmol/L Chloride 101 (101-111) mmol/L Carbon Dioxide 24 (21-32) mmol/L Anion Gap 8.0 (6-13) BUN 15 (6-20) mg/dL Creatinine 0.6 (0.4-1.0) mg/dL Estimated GFR (MDRD) 94 (>89) Glucose 116 H (70-100) mg/dL Calcium 7.9 L (8.5-10.3) mg/dL Troponin I 0.05 (<0.49) ng/mL TSH 1.31 (0.34-5.60) uIU/mL 05/10/18 Range/Units 06:00 WBC 9.0 (4.8-10.8) x10^3/uL RBC 2.96 L (4.20-5.40) 10^6/uL Hgb 9.8 L (12.0-16.0) g/dL Hct 29.0 L (37.0-47.0) % MCV 97.9 (81.0-99.0) fL MCH 33.2 H (27.0-31.0) pg MCHC 33.9 (32.0-36.0) g/dL RDW 13.1 (12.0-15.0) % Plt Count 281 (130-450) 10^3/uL MPV 7.3 L (7.9-10.8) fL Neut # (Auto) 7.4 H (1.5-6.6) 10^3/uL Lymph # (Auto) 0.5 L (1.5-3.5) 10^3/uL [place] # (Auto) 1.0 (0.0-1.0) 10^3/uL Eos # (Auto) 0.0 (0.0-0.7) 10^3/uL Baso # (Auto) 0.0 (0.0-0.1) 10^3/uL Absolute Nucleated RBC 0.00 x10^3/uL Nucleated RBC % 0.0 /100WBC Sodium (135-145) mmol/L Potassium (3.5-5.0) mmol/L Chloride (101-111) mmol/L Carbon Dioxide (21-32) mmol/L Anion Gap (6-13) BUN (6-20) mg/dL Creatinine (0.4-1.0) mg/dL Estimated GFR (MDRD) (>89) Glucose (70-100) mg/dL Calcium (8.5-10.3) mg/dL Troponin I (<0.49) ng/mL TSH (0.34-5.60) uIU/mL - Diagnostic Imaging Diagnostic Imaging Results: positive: Final report reviewed Diagnostic Imaging Comments: EXAM: CHEST RADIOGRAPHY EXAM DATE: 05/09/2018 08:54 AM. IMPRESSION: 1. Mild pulmonary vascular congestion. Mild diffuse bilateral interstitial prominence suggests mild interstitial edema. 2. Borderline enlargement of the cardiac silhouette. 3. No focal pulmonary consolidation. Assessment/Plan - Problem List (1) Distal radius fracture, left Impression: The patient fell after stumbling over an open palm and back forger in her kitchen, which caused her to fracture her left wrist. She was casted out patient via ortho surgery. Her left hand remains very discolored, warm and non-tender. Plan: Continue to monitor and await OT recommendations. Qualifiers: Encounter type: initial encounter Fracture type: closed (2) Fracture of femoral neck, left, closed Impression: The patient stumbled over her palm and back forger at home, fell to her left side and did not notice her left hip soreness right at first. After at least 24 hours, the patient could no longer walk. She is now post op after a left hip repair with Dr. Banuelos. He post op course was uneventful so far with minimal blood loss. Plan: Start ASA in the AM and await PT recommendations. Qualifiers: Encounter type: initial encounter Qualified Code(s): S72.002A - Fracture of unspecified part of neck of left femur, initial encounter for closed fracture (3) Fall from slip, trip, or stumble Impression: The patient described how she was in her kitchen with the bus washer door open, did not see it and accidentally tripped over it. She fell on her left hip injuring her left hip and left wrist. She saw her PCP who sent her to orthopedic surgery to evaluate her left wrist. After getting back home, she had increased pain to her left hip, and was non-ambulatory. She is now post op after a left hip repair and will need SNF after this hospital stay. Plan: PT/OT post op, and fall precautions. Qualifiers: Encounter type: initial encounter Qualified Code(s): W01.0XXA - Fall on same level from slipping, tripping and stumbling without subsequent striking against object, initial encounter (4) Glaucoma Impression: The patient is prescribed both Xalatan and Alphagan at home for this condition that has affected her vision. She lives independently with her . Plan: Continue meds, and fall precautions. Qualifiers: Laterality: left (5) Hypertension Impression: The patient does not have any documented history of this and is not prescribed any medications at home. Her blood pressure upon admission was elevated at 195/77 and this may due to stress from the fractures. Plan: Continue to monitor. Qualifiers: Hypertension type: other secondary hypertension Qualified Code(s): I15.8 - Other secondary hypertension (6) Pulmonary edema Impression: The patient was thought to have crackles in her low lung lobes as per anesthesia as his pre-op exam. A chest x-ray was obtained to rule out pneumonia. There was mild pulmonary vascular congestion noted in her bilateral lobes. Plan: Order telemetry and an echocardiogram and await results. Qualifiers: Chronicity: acute Qualified Code(s): J81.0 - Acute pulmonary edema
[2018-05-10] MEDS ORDERED: METOPROLOL SUCCINATE 25 MG TABLET PO SCH (11:00)
[2018-05-10] MEDS: CHOLECALCIFEROL 1,000 UNIT TABLET PO SCH (11:43)
[2018-05-10] MEDS: CALCIUM CITRATE 250 MG TABLET PO SCH ×2 (11:44→20:32)
[2018-05-10] MEDS: MULTIVITAMIN W/MINERALS TABLET PO SCH (11:44)
[2018-05-10] MEDS: POLYETHYLENE GLYCOL 3350 17 GM PACKET PO SCH (11:44)
[2018-05-10] MEDS: cefTRIAXone 2 GM in SODIUM CHLORIDE 0.9% MINIBAG 100 ML IV SCH (11:58)
[2018-05-10] MEDS: BRIMONIDINE 0.1% OPHTH DROPS 5 ML LEFTEYE SCH ×2 (11:58→20:33)
[2018-05-10] MEDS ORDERED: BISACODYL 10 MG SUPP PR PRN (13:57)
[2018-05-10] MEDS ORDERED: POTASSIUM CHLORIDE 10 MEQ CAPSULE PO SCH (14:00)
[2018-05-10] MEDS: MAGNESIUM OXIDE 400 MG TABLET PO SCH ×2 (14:31→20:32)
[2018-05-10] MEDS ORDERED: LACTATED RINGERS 500 ML IV ONE (14:50)
--- NOTE | 2018-05-10 14:54 | PROVIDER PROGRESS NOTE ---
Subjective - Prog Note Date Prog Note Date: 05/10/18 Prog Note Time: 14:52 - Subjective Pt reports feeling: Improved (Less hip pain. Fast, irregular heart rate noted. Not SOB or lightheaded.) Objective - Vital Signs/Intake & Output Vital Signs: Vital Signs x48h Temp Pulse Resp BP BP Pulse Ox 05/10/18 14:43 157 H 125/73 05/10/18 13:39 36.5 C 145 H 24 93/53 L 05/10/18 12:20 36.3 C L 153 H 20 101/69 05/10/18 12:06 109/63 05/10/18 08:06 110 H 104/68 05/10/18 07:51 146 H 107/62 05/10/18 07:36 141 H 124/70 05/10/18 07:31 140 H 122/66 05/10/18 07:26 37.1 C 139 H 24 115/66 92 05/10/18 07:17 97 106/66 05/10/18 07:16 106 H 95/62 05/10/18 07:10 137 H 117/75 05/10/18 07:05 125/87 H 05/10/18 07:02 125/87 H Intake & Output: Intake & Output 05/07/18 05/08/18 05/09/18 05/10/18 23:59 23:59 23:59 23:59 Intake Total 1050 2158.000 1250 Output Total 100 650 875 Balance 950 1508.000 375 - Lab Results Fish Bones: 05/10/18 06:00 05/10/18 06:00 Other Labs: Lab Results x24hrs 05/10/18 05/10/18 05/10/18 Range/Units 11:08 06:00 06:00 WBC (4.8-10.8) x10^3/uL RBC (4.20-5.40) 10^6/uL Hgb (12.0-16.0) g/dL Hct (37.0-47.0) % MCV (81.0-99.0) fL MCH (27.0-31.0) pg MCHC (32.0-36.0) g/dL RDW (12.0-15.0) % Plt Count (130-450) 10^3/uL MPV (7.9-10.8) fL Neut # (Auto) (1.5-6.6) 10^3/uL Lymph # (Auto) (1.5-3.5) 10^3/uL [place] # (Auto) (0.0-1.0) 10^3/uL Eos # (Auto) (0.0-0.7) 10^3/uL Baso # (Auto) (0.0-0.1) 10^3/uL Absolute Nucleated RBC x10^3/uL Nucleated RBC % /100WBC Sodium (135-145) mmol/L Potassium (3.5-5.0) mmol/L Chloride (101-111) mmol/L Carbon Dioxide (21-32) mmol/L Anion Gap (6-13) BUN (6-20) mg/dL Creatinine (0.4-1.0) mg/dL Estimated GFR (MDRD) (>89) Glucose (70-100) mg/dL Calcium (8.5-10.3) mg/dL Magnesium 1.8 (1.7-2.8) mg/dL Troponin I 0.05 0.05 (<0.49) ng/mL TSH (0.34-5.60) uIU/mL 05/10/18 05/10/18 05/10/18 Range/Units 06:00 06:00 06:00 WBC 9.0 (4.8-10.8) x10^3/uL RBC 2.96 L (4.20-5.40) 10^6/uL Hgb 9.8 L (12.0-16.0) g/dL Hct 29.0 L (37.0-47.0) % MCV 97.9 (81.0-99.0) fL MCH 33.2 H (27.0-31.0) pg MCHC 33.9 (32.0-36.0) g/dL RDW 13.1 (12.0-15.0) % Plt Count 281 (130-450) 10^3/uL MPV 7.3 L (7.9-10.8) fL Neut # (Auto) 7.4 H (1.5-6.6) 10^3/uL Lymph # (Auto) 0.5 L (1.5-3.5) 10^3/uL [place] # (Auto) 1.0 (0.0-1.0) 10^3/uL Eos # (Auto) 0.0 (0.0-0.7) 10^3/uL Baso # (Auto) 0.0 (0.0-0.1) 10^3/uL Absolute Nucleated RBC 0.00 x10^3/uL Nucleated RBC % 0.0 /100WBC Sodium 133 L (135-145) mmol/L Potassium 3.3 L (3.5-5.0) mmol/L Chloride 101 (101-111) mmol/L Carbon Dioxide 24 (21-32) mmol/L Anion Gap 8.0 (6-13) BUN 15 (6-20) mg/dL Creatinine 0.6 (0.4-1.0) mg/dL Estimated GFR (MDRD) 94 (>89) Glucose 116 H (70-100) mg/dL Calcium 7.9 L (8.5-10.3) mg/dL Magnesium (1.7-2.8) mg/dL Troponin I (<0.49) ng/mL TSH 1.31 (0.34-5.60) uIU/mL - Other Results/Comments Other Results/Comments: EXAM: Left hip incision - ok. Dressing intact. Mild hip pain with rotation. Up on floor already. N/V ok distally. SAC - ok. Moving fingers well. N/V ok distally Assessment/Plan - Problem List (1) Femoral neck fracture Impression: Satis post op orthopedicly PLAN: Continue to advance in PT as tolerated. Cardiac issue per hospitalist team. Dr. Blackwood will be covering for orthopedic issues beginning on Saturday. Qualifiers: Encounter type: initial encounter Fracture type: closed Laterality: left Qualified Code(s): S72.002A - Fracture of unspecified part of neck of left femur, initial encounter for closed fracture
[2018-05-10] MEDS ORDERED: MIN OIL/DIMETHICON/COCONUT OIL 92 GM TUBE TOP PRN (15:02)
--- NOTE | 2018-05-10 15:09 | XRAY Report ---
Reason: pl effusions Procedure Date: 05/10/2018 Accession Number: [id number] / [id number] Procedure: XR - Chest 1 View X-Ray CPT Code: 53949 FULL RESULT: EXAM: CHEST RADIOGRAPHY EXAM DATE: 05/10/2018 01:04 PM. CLINICAL HISTORY: Pl effusions. COMPARISON: None. TECHNIQUE: 1 view. FINDINGS: Lungs/Pleura: Retrocardiac infiltrate or atelectasis. No effusion. No pneumothorax. Mediastinum: Heart size normal. Tortuous aorta. Other: None. IMPRESSION: Retrocardiac infiltrate or atelectasis. RADIA
[2018-05-10] MEDS: LACTATED RINGERS 1,000 ML IV ONE ×2 (16:05→16:49)
--- NOTE | 2018-05-10 16:40 | PROVIDER PROGRESS NOTE ---
Subjective - Prog Note Date Prog Note Date: 05/10/18 Prog Note Time: 12:00 - Subjective Pt reports feeling: Improved Subjective: Marisol complains of weakness, and her situation of being hospitalized. She offers no new symptoms such as increased shortness of breath, nausea, vomiting, rashes, diarrhea or a new cough. Current Medications - Current Medications Current Medications: Active Medications Acetaminophen (Tylenol) 650 - 975 mg PO Q4HR PRN PRN Reason: PAIN Last Admin: 05/10/18 15:58 Dose: 650 mg Bisacodyl (Dulcolax Supp) 10 mg [place] DAILY PRN PRN Reason: Constipation Brimonidine Tartrate (Alphagan P 0.1% Ophth Drops) 1 drops LEFTEYE BID [facility] Last Admin: 05/10/18 11:58 Dose: Not Given Calcium Citrate () 250 mg PO BID [facility] Last Admin: 05/10/18 11:44 Dose: 250 mg Cholecalciferol (Vitamin D3) 2,000 unit PO DAILY [facility] Last Admin: 05/10/18 11:43 Dose: 2,000 unit Diltiazem HCl (Cardizem) 60 mg PO Q4HR [facility] Last Admin: 05/10/18 16:05 Dose: 60 mg Docusate Sodium (Colace 100mg Capsule) 100 mg PO BID PRN PRN Reason: Constipation Ceftriaxone Sodium 2 gm/ (Sodium Chloride) 100 mls @ 200 mls/hr IV Q24H [facility] Last Infusion: 05/10/18 12:54 Dose: Infused Latanoprost (Xalatan Ophth Drops) 1 drops LEFTEYE QPM [facility] Last Admin: 05/09/18 20:13 Dose: Not Given Magnesium Oxide (Mag Ox) 400 mg PO BID [facility] Last Admin: 05/10/18 14:31 Dose: 400 mg Metoprolol Succinate (Toprol Xl) 25 mg PO BID [facility] Mineral Oil (Cavilon) 1 applic TOP PRN PRN PRN Reason: Skin Care Last Admin: 05/10/18 15:57 Dose: 1 applic Morphine Sulfate (Morphine (Carpuject)) 2 mg IVP Q2HR PRN PRN Reason: PAIN Multivitamins/Minerals (Theragran M) 1 tab PO DAILYWM [facility] Last Admin: 05/10/18 11:44 Dose: 1 tab Ondansetron HCl (Zofran Inj) 4 mg IVP Q6HR PRN PRN Reason: Nausea / Vomiting Oxycodone HCl (Roxicodone) 5 mg PO Q4HR PRN PRN Reason: PAIN Last Admin: 05/09/18 22:22 Dose: 5 mg Polyethylene Glycol (Miralax) 17 gm PO DAILY [facility] Last Admin: 05/10/18 11:44 Dose: 17 gm Prochlorperazine Edisylate (Compazine Inj) 10 mg IVP Q6HR PRN PRN Reason: Nausea / Vomiting Senna (Senokot) 17.2 mg PO Q12H PRN PRN Reason: Constipation Sodium Chloride (Normal Saline Flush 0.9%) 10 ml IVP 0100,0900,1700 [facility] Last Admin: 05/10/18 15:59 Dose: 10 ml Sodium Chloride (Normal Saline Flush 0.9%) 10 ml IVP PRN PRN PRN Reason: NEEDED PER PROVIDER ORDERS Last Admin: 05/10/18 07:08 Dose: 10 ml Brimonidine 0.1% Ophth Drops [Alphagan P 0.1% Ophth Drops] 1 drop LEFTEYE BID 06/05/14 Latanoprost 0.005% Ophth Drops [Xalatan Ophth Drops] 1 drop LEFTEYE QPM 06/05/14 Objective - Vital Signs/Intake & Output Reviewed Vital Signs: Yes Vital Signs: Vital Signs x48h Temp Pulse Resp BP BP 05/10/18 16:05 115/54 L 05/10/18 15:46 37.8 C H 152 H 24 115/54 L 05/10/18 14:43 157 H 125/73 05/10/18 13:39 36.5 C 145 H 24 93/53 L 05/10/18 12:20 36.3 C L 153 H 20 101/69 05/10/18 12:06 109/63 Intake & Output: Intake & Output 05/07/18 05/08/18 05/09/18 05/10/18 23:59 23:59 23:59 23:59 Intake Total 1050 2158.000 1250 Output Total 100 650 875 Balance 950 1508.000 375 - Objective General Appearance: positive: Alert, Moderate distress, Anxious Eyes Bilateral: positive: PERRL Eyes: OU Conjunctivae pale ENT: positive: ENT inspection nml, Pharynx nml Neck: positive: Nml inspection, Thyroid nml, No JVD Respiratory: positive: Chest non-tender, No respiratory distress, Other (scattered crackles) Cardiovascular: positive: Irregularly irregular, Tachycardia, Systolic murmur Peripheral Pulses: 2+ Radial (R), 2+ Radial (L) Abdomen: positive: Non-tender, No distention Back: positive: Nml inspection Skin: positive: No rash, Warm, Dry Extremities: positive: Non-tender, Full ROM, Pedal edema, Joint swelling (left hip swelling, tenderness. No evidence of bleeding.) Neurologic/Psychiatric: positive: Oriented x3, CN's nml (2-12), Motor nml, Weakness, Sensory loss, Depressed mood/affect Reflexes: Bicep (R): 2+, Bicep (L): 1+ - Lab Results Fish Bones: 05/12/18 05:45 05/12/18 05:45 Other Labs: Lab Results x24hrs 05/10/18 05/10/18 05/10/18 Range/Units 11:08 06:00 06:00 WBC (4.8-10.8) x10^3/uL RBC (4.20-5.40) 10^6/uL Hgb (12.0-16.0) g/dL Hct (37.0-47.0) % MCV (81.0-99.0) fL MCH (27.0-31.0) pg MCHC (32.0-36.0) g/dL RDW (12.0-15.0) % Plt Count (130-450) 10^3/uL MPV (7.9-10.8) fL Neut # (Auto) (1.5-6.6) 10^3/uL Lymph # (Auto) (1.5-3.5) 10^3/uL [place] # (Auto) (0.0-1.0) 10^3/uL Eos # (Auto) (0.0-0.7) 10^3/uL Baso # (Auto) (0.0-0.1) 10^3/uL Absolute Nucleated RBC x10^3/uL Nucleated RBC % /100WBC Sodium (135-145) mmol/L Potassium (3.5-5.0) mmol/L Chloride (101-111) mmol/L Carbon Dioxide (21-32) mmol/L Anion Gap (6-13) BUN (6-20) mg/dL Creatinine (0.4-1.0) mg/dL Estimated GFR (MDRD) (>89) Glucose (70-100) mg/dL Calcium (8.5-10.3) mg/dL Magnesium 1.8 (1.7-2.8) mg/dL Troponin I 0.05 0.05 (<0.49) ng/mL TSH (0.34-5.60) uIU/mL 05/10/18 05/10/18 05/10/18 Range/Units 06:00 06:00 06:00 WBC 9.0 (4.8-10.8) x10^3/uL RBC 2.96 L (4.20-5.40) 10^6/uL Hgb 9.8 L (12.0-16.0) g/dL Hct 29.0 L (37.0-47.0) % MCV 97.9 (81.0-99.0) fL MCH 33.2 H (27.0-31.0) pg MCHC 33.9 (32.0-36.0) g/dL RDW 13.1 (12.0-15.0) % Plt Count 281 (130-450) 10^3/uL MPV 7.3 L (7.9-10.8) fL Neut # (Auto) 7.4 H (1.5-6.6) 10^3/uL Lymph # (Auto) 0.5 L (1.5-3.5) 10^3/uL [place] # (Auto) 1.0 (0.0-1.0) 10^3/uL Eos # (Auto) 0.0 (0.0-0.7) 10^3/uL Baso # (Auto) 0.0 (0.0-0.1) 10^3/uL Absolute Nucleated RBC 0.00 x10^3/uL Nucleated RBC % 0.0 /100WBC Sodium 133 L (135-145) mmol/L Potassium 3.3 L (3.5-5.0) mmol/L Chloride 101 (101-111) mmol/L Carbon Dioxide 24 (21-32) mmol/L Anion Gap 8.0 (6-13) BUN 15 (6-20) mg/dL Creatinine 0.6 (0.4-1.0) mg/dL Estimated GFR (MDRD) 94 (>89) Glucose 116 H (70-100) mg/dL Calcium 7.9 L (8.5-10.3) mg/dL Magnesium (1.7-2.8) mg/dL Troponin I (<0.49) ng/mL TSH 1.31 (0.34-5.60) uIU/mL ABX Reporting Has patient been on IV antibiotics over the past 48 hours?: Yes Assessment/Plan - Problem List (1) Atrial fibrillation with rapid ventricular response Impression: At 02:45 AM the patient was noted to change from sinus rhythm to atrial fibrillation with RVR and rates 100-150's. A troponin was completed and was 0.05. The patient was given diltiazem IV, metoprolol IV, with little effect. Plan: Follow serial troponins, change both meds to oral forms and monitor on telemetry. (2) Fall from slip, trip, or stumble Impression: The patient described how she was in her kitchen with the salt washer door open, did not see it and accidentally tripped over it. She fell on her left hip injuring her left hip and left wrist. She saw her PCP who sent her to orthopedic surgery to evaluate her left wrist. After getting back home, she had increased pain to her left hip, and was non-ambulatory. She is now post op after a left hip repair and will need SNF after this hospital stay. Plan: PT/OT post op, and fall precautions. Qualifiers: Encounter type: initial encounter Qualified Code(s): W01.0XXA - Fall on same level from slipping, tripping and stumbling without subsequent striking against object, initial encounter (3) Distal radius fracture, left Impression: The patient fell after stumbling over an open home service consultant in her kitchen, which caused her to fracture her left wrist. She was set with a cast as an out patient via ortho surgery. Her left hand remains very discolored, warm and non- tender. Plan: Continue to monitor and await OT recommendations. Qualifiers: Encounter type: initial encounter Fracture type: closed (4) Fracture of femoral neck, left, closed Impression: The patient stumbled over her home service consultant at home, fell to her left side and did not notice her left hip soreness right at first. After at least 24 hours, the patient could no longer walk. She is now post op after a left hip repair with Dr. Banuelos. He post op course was uneventful so far with minimal blood loss. Plan: Start ASA in the AM and await PT recommendations. Qualifiers: Encounter type: initial encounter Qualified Code(s): S72.002A - Fracture of unspecified part of neck of left femur, initial encounter for closed fracture (5) Glaucoma Impression: The patient is prescribed both Xalatan and Alphagan at home for this condition that has affected her vision. She lives independently with her . Plan: Continue meds, and fall precautions. Qualifiers: Laterality: left (6) Hypertension Impression: The patient does not have any documented history of this and is not prescribed any medications at home. Her blood pressure upon admission was elevated at 195/77 and this may due to stress from the fractures. Plan: Continue to monitor. Qualifiers: Hypertension type: other secondary hypertension Qualified Code(s): I15.8 - Other secondary hypertension (7) Pulmonary edema Impression: The patient was thought to have crackles in her low lung lobes as per anesthesia as his pre-op exam. A chest x-ray was obtained to rule out pneumonia. There was mild pulmonary vascular congestion noted in her bilateral lobes. Plan: Order telemetry and an echocardiogram and await results. Qualifiers: Chronicity: acute Qualified Code(s): J81.0 - Acute pulmonary edema (8) UTI (urinary tract infection) Impression: Preliminary urine results show likely a UTI. Cultures are pending. The patient denies dysuria, but admits to occasional leaking. Plan: Start Rocephin IV Q 24H, and await final cultures. Qualifiers: Urinary tract infection type: acute cystitis
[2018-05-10] MEDS: oxyCODONE 5 MG TABLET PO PRN (19:32)
[2018-05-10] MEDS: METOPROLOL SUCCINATE 25 MG TABLET PO SCH ×2 (19:32→19:34)
[2018-05-10] MEDS: LATANOPROST 0.005% OPHTH DROPS LEFTEYE SCH (20:33)
[2018-05-11] MEDS: SODIUM CHLORIDE FLUSH 0.9% 10 ML SYRINGE IVP SCH ×3 (01:09→17:47)
[2018-05-11] MEDS ORDERED: diltiaZEM 30 MG TABLET PO ONE (06:03)
[2018-05-11 06:34] LABS: BASOPHILS % (AUTO) 0.6 %; EOSINOPHILS # (AUTO) 0.1 10^3/uL (0.0-0.7); HGB - HEMOGLOBIN 9.5 g/dL (12.0-16.0); LYMPHOCYTES # (AUTO) 0.8 10^3/uL (1.5-3.5); LYMPHOCYTES % (AUTO) 11.2 %; MEAN CORPUSCULAR HGB CONC 33.8 g/dL (32.0-36.0); MEAN CORPUSCULAR VOLUME 97.6 fL (81.0-99.0); MEAN PLATELET VOLUME 7.4 fL (7.9-10.8); MONOCYTES # (AUTO) 0.8 10^3/uL (0.0-1.0); MONOCYTES % (AUTO) 11.5 %; NEUTROPHILS # (AUTO) 5.6 10^3/uL (1.5-6.6); NEUTROPHILS % (AUTO) 75.7 %; PLT - PLATELET COUNT 364 10^3/uL (130-450); RED BLOOD COUNT 2.88 10^6/uL (4.20-5.40); RED CELL DISTRIBUTION WIDTH 13.1 % (12.0-15.0); WHITE BLOOD COUNT 7.4 x10^3/uL (4.8-10.8)
[2018-05-11 06:43] LABS: CALCIUM 8.1 mg/dL (8.5-10.3); CREATININE 0.7 mg/dL (0.4-1.0)
--- NOTE | 2018-05-11 09:00 | PROVIDER PROGRESS NOTE ---
Subjective - Prog Note Date Prog Note Date: 05/11/18 - Subjective Pt reports feeling: Improved Subjective: Subjective: Patient seen and examined with and friend at bedside. Says just a slight left thigh pain- points to distal end of surgical site. Afib reported overnight. Converted to nsr in 80's. Denies CV sx. Appreciate events noted. Exam: VSS. LLE: flex/ex toes ankle knee and hip with comfort. thigh/calf soft. minimal soft tissue ttp distal end of surgical site. no erythema. no pain with log rolling, IR/ER. otherwise no NV changes noted. Dressing dry and intact with minimal staining. LUE: R/M/U m/s intact. digits warm with cap refill<2sec. cast in place. skin at edge of cast intact. A/P Ortho stable s/p Left hip hemiarthroplasty and Closed reduction and casting L DR metzger. Afib- to NSR now mgd by hospitalist service. Cont DVT prophylaxis. Hip precautions. Transfers and amb with full assist and assist device prn. Incentive spirometer. SCD's in bed. Cont current mgt. Objective - Vital Signs/Intake & Output Vital Signs: Vital Signs x48h Temp Pulse Resp BP BP Pulse Ox 05/11/18 07:56 37 C 81 20 120/60 98 05/11/18 06:03 131/57 H 05/11/18 05:48 36.5 C 79 18 122/55 L 92 05/11/18 02:30 80 18 111/48 L 96 05/11/18 01:36 108/56 L 05/11/18 01:32 109 H 108/56 L 05/11/18 01:12 36.8 C 115 H 19 128/53 L 93 Intake & Output: Intake & Output 05/08/18 05/09/18 05/10/18 05/11/18 23:59 23:59 23:59 23:59 Intake Total 1050 2158.000 1750 Output Total 100 650 875 Balance 950 1508.000 875 - Lab Results Fish Bones: 05/11/18 06:09 05/11/18 06:09 Other Labs: Lab Results x24hrs 05/11/18 05/11/18 05/10/18 Range/Units 06:09 06:09 16:55 WBC 7.4 (4.8-10.8) x10^3/uL RBC 2.88 L (4.20-5.40) 10^6/uL Hgb 9.5 L (12.0-16.0) g/dL Hct 28.1 L (37.0-47.0) % MCV 97.6 (81.0-99.0) fL MCH 33.0 H (27.0-31.0) pg MCHC 33.8 (32.0-36.0) g/dL RDW 13.1 (12.0-15.0) % Plt Count 364 (130-450) 10^3/uL MPV 7.4 L (7.9-10.8) fL Neut # (Auto) 5.6 (1.5-6.6) 10^3/uL Lymph # (Auto) 0.8 L (1.5-3.5) 10^3/uL [place]aver # (Auto) 0.8 (0.0-1.0) 10^3/uL Eos # (Auto) 0.1 (0.0-0.7) 10^3/uL Baso # (Auto) 0.0 (0.0-0.1) 10^3/uL Absolute Nucleated RBC 0.00 x10^3/uL Nucleated RBC % 0.0 /100WBC Sodium 133 L (135-145) mmol/L Potassium 4.2 (3.5-5.0) mmol/L Chloride 98 L (101-111) mmol/L Carbon Dioxide 29 (21-32) mmol/L Anion Gap 6.0 (6-13) BUN 18 (6-20) mg/dL Creatinine 0.7 (0.4-1.0) mg/dL Estimated GFR (MDRD) 79 L (>89) Glucose 128 H (70-100) mg/dL Calcium 8.1 L (8.5-10.3) mg/dL Troponin I 0.07 (<0.49) ng/mL 05/10/18 Range/Units 11:08 WBC (4.8-10.8) x10^3/uL RBC (4.20-5.40) 10^6/uL Hgb (12.0-16.0) g/dL Hct (37.0-47.0) % MCV (81.0-99.0) fL MCH (27.0-31.0) pg MCHC (32.0-36.0) g/dL RDW (12.0-15.0) % Plt Count (130-450) 10^3/uL MPV (7.9-10.8) fL Neut # (Auto) (1.5-6.6) 10^3/uL Lymph # (Auto) (1.5-3.5) 10^3/uL [place]aver # (Auto) (0.0-1.0) 10^3/uL Eos # (Auto) (0.0-0.7) 10^3/uL Baso # (Auto) (0.0-0.1) 10^3/uL Absolute Nucleated RBC x10^3/uL Nucleated RBC % /100WBC Sodium (135-145) mmol/L Potassium (3.5-5.0) mmol/L Chloride (101-111) mmol/L Carbon Dioxide (21-32) mmol/L Anion Gap (6-13) BUN (6-20) mg/dL Creatinine (0.4-1.0) mg/dL Estimated GFR (MDRD) (>89) Glucose (70-100) mg/dL Calcium (8.5-10.3) mg/dL Troponin I 0.05 (<0.49) ng/mL
[2018-05-11] MEDS: MULTIVITAMIN W/MINERALS TABLET PO SCH (10:34)
[2018-05-11] MEDS: POLYETHYLENE GLYCOL 3350 17 GM PACKET PO SCH (10:34)
[2018-05-11] MEDS: CALCIUM CITRATE 250 MG TABLET PO SCH ×2 (10:34→20:40)
[2018-05-11] MEDS: METOPROLOL SUCCINATE 25 MG TABLET PO SCH ×2 (10:35→20:41)
[2018-05-11] MEDS: CHOLECALCIFEROL 1,000 UNIT TABLET PO SCH (10:35)
[2018-05-11] MEDS: MAGNESIUM OXIDE 400 MG TABLET PO SCH ×2 (10:35→20:41)
[2018-05-11] MEDS: BRIMONIDINE 0.1% OPHTH DROPS 5 ML LEFTEYE SCH ×2 (10:36→20:42)
[2018-05-11] MEDS: cefTRIAXone 2 GM in SODIUM CHLORIDE 0.9% MINIBAG 100 ML IV SCH (11:41)
--- NOTE | 2018-05-11 14:45 | PROVIDER PROGRESS NOTE ---
Subjective - Prog Note Date Prog Note Date: 05/11/18 Prog Note Time: 14:44 - Subjective Pt reports feeling: No change Subjective: Marisol admits to being generally uncomfortable at times, and wishes that she could return home. She denies any new symptoms such as shortness of breath, nausea, vomiting, or a new cough. Objective - Vital Signs/Intake & Output Reviewed Vital Signs: Yes Vital Signs: Vital Signs x48h Temp Pulse Resp BP BP Pulse Ox 05/11/18 13:48 83 106/50 L 106/50 L 93 05/11/18 12:09 37.4 C 84 20 98/47 L 92 05/11/18 10:35 106/56 L 05/11/18 07:56 37 C 81 20 120/60 98 Intake & Output: Intake & Output 05/08/18 05/09/18 05/10/18 05/11/18 23:59 23:59 23:59 23:59 Intake Total 1050 2158.000 1750 814 Output Total 100 650 875 200 Balance 950 1508.000 875 614 - Objective General Appearance: positive: Alert, Moderate distress, Anxious Eyes Bilateral: positive: PERRL Eyes: OU Conjunctivae pale ENT: positive: Pharyngeal erythema, Dry mucous membranes Neck: positive: Thyroid nml, No JVD, Stiff neck Respiratory: positive: Chest non-tender, No respiratory distress, Other (dimin ished) Cardiovascular: positive: No gallop, Irregularly irregular, Systolic murmur Peripheral Pulses: 1+ Radial (R), 1+ Radial (L) Abdomen: positive: Non-tender, Nml bowel sounds Back: positive: Nml inspection Skin: positive: No rash, Warm, Dry Extremities: positive: Non-tender, Full ROM, Pedal edema (left hip swelling), Joint swelling Neurologic/Psychiatric: positive: CN's nml (2-12), Disoriented to time, Weakness, Sensory loss, Depressed mood/affect, Other (STM loss) Reflexes: Bicep (R): 2+, Bicep (L): 2+ - Lab Results Fish Bones: 05/12/18 05:45 05/12/18 05:45 Other Labs: Lab Results x24hrs 05/11/18 05/11/18 05/10/18 Range/Units 06:09 06:09 16:55 WBC 7.4 (4.8-10.8) x10^3/uL RBC 2.88 L (4.20-5.40) 10^6/uL Hgb 9.5 L (12.0-16.0) g/dL Hct 28.1 L (37.0-47.0) % MCV 97.6 (81.0-99.0) fL MCH 33.0 H (27.0-31.0) pg MCHC 33.8 (32.0-36.0) g/dL RDW 13.1 (12.0-15.0) % Plt Count 364 (130-450) 10^3/uL MPV 7.4 L (7.9-10.8) fL Neut # (Auto) 5.6 (1.5-6.6) 10^3/uL Lymph # (Auto) 0.8 L (1.5-3.5) 10^3/uL [place] # (Auto) 0.8 (0.0-1.0) 10^3/uL Eos # (Auto) 0.1 (0.0-0.7) 10^3/uL Baso # (Auto) 0.0 (0.0-0.1) 10^3/uL Absolute Nucleated RBC 0.00 x10^3/uL Nucleated RBC % 0.0 /100WBC Sodium 133 L (135-145) mmol/L Potassium 4.2 (3.5-5.0) mmol/L Chloride 98 L (101-111) mmol/L Carbon Dioxide 29 (21-32) mmol/L Anion Gap 6.0 (6-13) BUN 18 (6-20) mg/dL Creatinine 0.7 (0.4-1.0) mg/dL Estimated GFR (MDRD) 79 L (>89) Glucose 128 H (70-100) mg/dL Calcium 8.1 L (8.5-10.3) mg/dL Troponin I 0.07 (<0.49) ng/mL ABX Reporting Has patient been on IV antibiotics over the past 48 hours?: Yes Assessment/Plan - Problem List (1) Atrial fibrillation with rapid ventricular response Impression: The patient was given diltiazem IV, metoprolol IV, with and transitioned to metoprolol succinate and scheduled diltiazem. Since this is going well with heart rates sustaining in the 70-80's, the metoprolol will be increased and the dilt on hold. Plan: Monitor on telemetry overnight, and give oral meds. (2) Fall from slip, trip, or stumble Impression: The patient described how she was in her kitchen with the washer assembler door open, did not see it and accidentally tripped over it. She fell on her left hip injuring her left hip and left wrist. She saw her PCP who sent her to orthopedic surgery to evaluate her left wrist. After getting back home, she had increased pain to her left hip, and was non-ambulatory. She is now post op after a left hip repair and will need SNF after this hospital stay. Plan: PT/OT post op, and fall precautions. Qualifiers: Encounter type: initial encounter Qualified Code(s): W01.0XXA - Fall on s jodie level from slipping, tripping and stumbling without subsequent striking against object, initial encounter (3) Distal radius fracture, left Impression: The patient fell after stumbling over an open assistant operations manager in her kitchen, which caused her to fracture her left wrist. She was set with a cast as an out patient via ortho surgery. Her left hand remains very discolored, warm and non- tender. Plan: Continue to monitor and await OT recommendations. Qualifiers: Encounter type: initial encounter Fracture type: closed (4) Fracture of femoral neck, left, closed Impression: The patient stumbled over her assistant operations manager at home, fell to her left side and did not notice her left hip soreness right at first. After at least 24 hours, the patient could no longer walk. She is now post op after a left hip repair with Dr. Banuelos. The post op course was uneventful so far with minimal blood loss. Plan: Continue ASA and await PT recommendations. Qualifiers: Encounter type: initial encounter Qualified Code(s): S72.002A - Fracture of unspecified part of neck of left femur, initial encounter for closed fracture (5) Glaucoma Impression: The patient is prescribed both Xalatan and Alphagan at home for this condition that has affected her vision. She lives independently with her . Plan: Continue meds, and fall precautions. Qualifiers: Laterality: left (6) Hypertension Impression: The patient does not have any documented history of this and is not prescribed any medications at home. Her blood pressure upon admission was elevated at 195/77 and this may due to stress from the fractures. She remains off any antihypertensives, and we will likely not start her on any additional meds due to the necessity of a rate control med. Plan: Continue to monitor. Qualifiers: Hypertension type: other secondary hypertension Qualified Code(s): I15.8 - Other secondary hypertension (7) Pulmonary edema Impression: The patient was thought to have crackles in her low lung lobes as per anesthesia as his pre-op exam. A chest x-ray was obtained to rule out pneumonia. There was mild pulmonary vascular congestion noted in her bilateral lobes. Plan: Order telemetry and an echocardiogram and await results. Qualifiers: Chronicity: acute Qualified Code(s): J81.0 - Acute pulmonary edema (8) UTI (urinary tract infection) Impression: Urine results show likely a UTI. Cultures are show no identifiable pathogen. The patient denies dysuria, but admits to occasional leaking. Plan: Continue Rocephin IV Q 24H, and await final cultures. Qualifiers: Urinary tract infection type: acute cystitis
[2018-05-11] MEDS: LATANOPROST 0.005% OPHTH DROPS LEFTEYE SCH (20:42)
[2018-05-12] MEDS: oxyCODONE 5 MG TABLET PO PRN ×2 (01:23→20:40)
[2018-05-12] MEDS ORDERED: diltiaZEM INJ 5 MG/ML VIAL IVP SCH (01:27)
[2018-05-12] MEDS: SODIUM CHLORIDE FLUSH 0.9% 10 ML SYRINGE IVP SCH ×3 (01:46→20:29)
[2018-05-12] MEDS: SODIUM CHLORIDE FLUSH 0.9% 10 ML SYRINGE IVP PRN ×2 (02:51→02:52)
[2018-05-12 06:02] LABS: BASOPHILS # (AUTO) 0.1 10^3/uL (0.0-0.1); BASOPHILS % (AUTO) 0.8 %; EOSINOPHILS # (AUTO) 0.2 10^3/uL (0.0-0.7); HGB - HEMOGLOBIN 9.1 g/dL (12.0-16.0); LYMPHOCYTES # (AUTO) 0.9 10^3/uL (1.5-3.5); LYMPHOCYTES % (AUTO) 12.2 %; MEAN CORPUSCULAR HEMOGLOBIN 33.2 pg (27.0-31.0); MEAN CORPUSCULAR HGB CONC 34.3 g/dL (32.0-36.0); MEAN PLATELET VOLUME 7.2 fL (7.9-10.8); MONOCYTES # (AUTO) 0.8 10^3/uL (0.0-1.0); NEUTROPHILS # (AUTO) 5.2 10^3/uL (1.5-6.6); PLT - PLATELET COUNT 406 10^3/uL (130-450); RED BLOOD COUNT 2.74 10^6/uL (4.20-5.40); RED CELL DISTRIBUTION WIDTH 13.3 % (12.0-15.0); WHITE BLOOD COUNT 7.2 x10^3/uL (4.8-10.8)
[2018-05-12 06:13] LABS: ALBUMIN 2.2 g/dL (3.2-5.5); ALBUMIN/GLOBULIN RATIO 0.7 (1.0-2.2); BILIRUBIN,TOTAL 0.4 mg/dL (0.2-1.0); CREATININE 0.7 mg/dL (0.4-1.0); MAGNESIUM 2.2 mg/dL (1.7-2.8); TOTAL PROTEIN 5.4 g/dL (6.7-8.2)
[2018-05-12] MEDS: MULTIVITAMIN W/MINERALS TABLET PO SCH (08:42)
[2018-05-12] MEDS: CALCIUM CITRATE 250 MG TABLET PO SCH ×2 (08:55→20:29)
[2018-05-12] MEDS: MAGNESIUM OXIDE 400 MG TABLET PO SCH ×2 (08:55→20:30)
[2018-05-12] MEDS: BRIMONIDINE 0.1% OPHTH DROPS 5 ML LEFTEYE SCH ×2 (08:57→20:31)
[2018-05-12] MEDS: CHOLECALCIFEROL 1,000 UNIT TABLET PO SCH (08:57)
[2018-05-12] MEDS: POLYETHYLENE GLYCOL 3350 17 GM PACKET PO SCH (08:59)
[2018-05-12] MEDS ORDERED: DOCUSATE SODIUM 250 MG CAPSULE PO SCH (09:00)
[2018-05-12] MEDS ORDERED: SENNA 8.6 MG TABLET PO SCH (09:00)
[2018-05-12] MEDS: METOPROLOL SUCCINATE 25 MG TABLET PO SCH ×2 (09:02→20:29)
--- NOTE | 2018-05-12 10:02 | PROVIDER PROGRESS NOTE ---
Subjective - Prog Note Date Prog Note Date: 05/12/18 Prog Note Time: 09:31 - Subjective Pt reports feeling: Improved Subjective: Marisol complains about "getting woke up in the night too much". She states that her hip does not hurt just lying in bed. She denies increased SOB, chest pain, nausea, vomiting, or a new cough. Current Medications - Current Medications Current Medications: Active Medications Acetaminophen (Tylenol) 650 - 975 mg PO Q4HR PRN PRN Reason: PAIN Last Admin: 05/10/18 15:58 Dose: 650 mg Bisacodyl (Dulcolax Supp) 10 mg SD DAILY PRN PRN Reason: Constipation Brimonidine Tartrate (Alphagan P 0.1% Ophth Drops) 1 drops LEFTEYE BID [facility] Last Admin: 05/12/18 08:57 Dose: 1 drops Calcium Citrate () 250 mg PO BID [facility] Last Admin: 05/12/18 08:55 Dose: 250 mg Cholecalciferol (Vitamin D3) 2,000 unit PO DAILY [facility] Last Admin: 05/12/18 08:57 Dose: 2,000 unit Diltiazem HCl (Cardizem) 60 mg PO Q6H [facility] Last Admin: 05/12/18 08:43 Dose: 60 mg Docusate Sodium (Colace 100mg Capsule) 100 mg PO BID PRN PRN Reason: Constipation Docusate Sodium (Colace 250mg Capsule) 250 - 500 mg PO ONCE [facility] Stop: 05/12/18 10:00 Last Admin: 05/12/18 08:59 Dose: Not Given Ceftriaxone Sodium 2 gm/ (Sodium Chloride) 100 mls @ 200 mls/hr IV Q24H [facility] Last Infusion: 05/11/18 13:40 Dose: Infused Latanoprost (Xalatan Ophth Drops) 1 drops LEFTEYE QPM [facility] Last Admin: 05/11/18 20:42 Dose: Not Given Magnesium Oxide (Mag Ox) 400 mg PO BID [facility] Last Admin: 05/12/18 08:55 Dose: 400 mg Metoprolol Succinate (Toprol Xl) 50 mg PO BID [facility] Last Admin: 05/12/18 09:02 Dose: 50 mg Mineral Oil (Cavilon) 1 applic TOP PRN PRN PRN Reason: Skin Care Last Admin: 05/10/18 15:57 Dose: 1 applic Morphine Sulfate (Morphine (Carpuject)) 2 mg IVP Q2HR PRN PRN Reason: PAIN Multivitamins/Minerals (Theragran M) 1 tab PO DAILYWM [facility] Last Admin: 05/12/18 08:42 Dose: 1 tab Ondansetron HCl (Zofran Inj) 4 mg IVP Q6HR PRN PRN Reason: Nausea / Vomiting Oxycodone HCl (Roxicodone) 5 mg PO Q4HR PRN PRN Reason: PAIN Last Admin: 05/12/18 01:23 Dose: 5 mg Polyethylene Glycol (Miralax) 17 gm PO DAILY [facility] Last Admin: 05/12/18 08:59 Dose: 17 gm Prochlorperazine Edisylate (Compazine Inj) 10 mg IVP Q6HR PRN PRN Reason: Nausea / Vomiting Senna (Senokot) 17.2 mg PO Q12H PRN PRN Reason: Constipation Senna (Senokot) 8.6 - 17.2 mg PO ONCE [facility] Stop: 05/12/18 10:00 Last Admin: 05/12/18 09:03 Dose: 8.6 mg Sodium Chloride (Normal Saline Flush 0.9%) 10 ml IVP 0100,0900,1700 [facility] Last Admin: 05/12/18 09:01 Dose: 10 ml Sodium Chloride (Normal Saline Flush 0.9%) 10 ml IVP PRN PRN PRN Reason: NEEDED PER PROVIDER ORDERS Last Admin: 05/12/18 02:52 Dose: 10 ml Brimonidine 0.1% Ophth Drops [Alphagan P 0.1% Ophth Drops] 1 drop LEFTEYE BID 06/05/14 Latanoprost 0.005% Ophth Drops [Xalatan Ophth Drops] 1 drop LEFTEYE QPM 06/05/14 Objective - Vital Signs/Intake & Output Reviewed Vital Signs: Yes Vital Signs: Vital Signs x48h Temp Pulse Resp BP BP Pulse Ox 05/12/18 08:43 130/43 L 05/12/18 06:00 36.7 C 79 18 113/55 L 97 05/12/18 02:50 104 H 122/57 L 05/12/18 02:16 127 H 106/84 H 05/12/18 02:02 120/68 Intake & Output: Intake & Output 05/09/18 05/10/18 05/11/18 05/12/18 23:59 23:59 23:59 23:59 Intake Total 2158.000 1750 914 Output Total 650 875 200 Balance 1508.000 875 714 - Objective General Appearance: positive: Alert, Moderate distress, Anxious Eyes Bilateral: positive: PERRL Eyes: OU Abnormal pupil ENT: positive: ENT inspection nml, Dry mucous membranes Neck: positive: Thyroid nml, No JVD, Stiff neck Respiratory: positive: Chest non-tender, No respiratory distress, Other (diminished) Cardiovascular: positive: No gallop, Irregularly irregular, Tachycardia, Systolic murmur Peripheral Pulses: 1+ Radial (R), 1+ Radial (L) Back: positive: Nml inspection Skin: positive: No rash, Warm, Dry Extremities: positive: Pedal edema, Joint swelling (left hip swelling, expected.) Neurologic/Psychiatric: positive: CN's nml (2-12), Motor nml, Disoriented to time, Weakness, Depressed mood/affect Reflexes: Bicep (R): 2+, Bicep (L): 2+ - Lab Results Fish Bones: 05/14/18 05:33 05/14/18 05:33 Other Labs: Lab Results x24hrs 05/12/18 05/12/18 05/12/18 Range/Units 05:45 05:45 05:45 WBC 7.2 (4.8-10.8) x10^3/uL RBC 2.74 L (4.20-5.40) 10^6/uL Hgb 9.1 L (12.0-16.0) g/dL Hct 26.6 L (37.0-47.0) % MCV 97.0 (81.0-99.0) fL MCH 33.2 H (27.0-31.0) pg MCHC 34.3 (32.0-36.0) g/dL RDW 13.3 (12.0-15.0) % Plt Count 406 (130-450) 10^3/uL MPV 7.2 L (7.9-10.8) fL Neut # (Auto) 5.2 (1.5-6.6) 10^3/uL Lymph # (Auto) 0.9 L (1.5-3.5) 10^3/uL [place] # (Auto) 0.8 (0.0-1.0) 10^3/uL Eos # (Auto) 0.2 (0.0-0.7) 10^3/uL Baso # (Auto) 0.1 (0.0-0.1) 10^3/uL Absolute Nucleated RBC 0.00 x10^3/uL Nucleated RBC % 0.0 /100WBC Sodium 134 L (135-145) mmol/L Potassium 4.5 (3.5-5.0) mmol/L Chloride 98 L (101-111) mmol/L Carbon Dioxide 29 (21-32) mmol/L Anion Gap 7.0 (6-13) BUN 16 (6-20) mg/dL Creatinine 0.7 (0.4-1.0) mg/dL Estimated GFR (MDRD) 79 L (>89) Glucose 128 H (70-100) mg/dL Calcium 8.0 L (8.5-10.3) mg/dL Magnesium 2.2 (1.7-2.8) mg/dL Total Bilirubin 0.4 (0.2-1.0) mg/dL AST 47 H (10-42) IU/L ALT 28 (10-60) IU/L Alkaline Phosphatase 63 (42-121) IU/L B-Natriuretic Peptide 424 H (5-100) pg/mL Total Protein 5.4 L (6.7-8.2) g/dL Albumin 2.2 L (3.2-5.5) g/dL Globulin 3.2 (2.1-4.2) g/dL Albumin/Globulin Ratio 0.7 L (1.0-2.2) - Diagnostic Imaging Diagnostic Imaging Results: positive: Final report reviewed ABX Reporting Has patient been on IV antibiotics over the past 48 hours?: Yes Assessment/Plan - Problem List (1) Atrial fibrillation with rapid ventricular response Impression: The patient was given diltiazem IV, metoprolol IV, with and transitioned to metoprolol succinate and scheduled diltiazem. Attempts were made to simplify things, so diltiazem was discontinued, but overnight the patient sustained in the 140's, but MD was not made aware until much later. Plan: Monitor on tele, resume dilt, and continue with metoprolol. (2) Fall from slip, trip, or stumble Impression: The patient described how she was in her kitchen with the mica washer gluer door open, did not see it and accidentally tripped over it. She fell on her left hip injuring her left hip and left wrist. She saw her PCP who sent her to orthopedic surgery to evaluate her left wrist. After getting back home, she had increased pain to her left hip, and was non-ambulatory. She is now post op after a left hip repair and will need SNF after this hospital stay-but due to financial constraints and the lack of insurance, she will return home with her . Plan: PT/OT post op, and fall precautions. Qualifiers: Encounter type: initial encounter Qualified Code(s): W01.0XXA - Fall on same level from slipping, tripping and stumbling without subsequent striking against object, initial encounter (3) Distal radius fracture, left Impression: The patient fell after stumbling over an open clerical proofreader in her kitchen, which caused her to fracture her left wrist. She was set with a cast as an out patient via ortho surgery. Her left hand remains very discolored, warm and non- tender. A call was made to Dr. Donahue in regards to some skin irritation noted around her left thumb related to the cast. He will plan to alter the cast tomorrow. Plan: Continue to monitor, PT/ OT recommendations. Qualifiers: Encounter type: initial encounter Fracture type: closed (4) Fracture of femoral neck, left, closed Impression: The patient stumbled over her clerical proofreader at home, fell to her left side and did not notice her left hip soreness right at first. After at least 24 hours, the patient could no longer walk. She is now post op after a left hip repair with Dr. Banuelos. The post op course was uneventful so far with minimal blood loss. She can move to the chair with moderate assistance from nursing or PT. She will not go to SNF since financial arrangements will not be made by the family. Plan: Continue ASA and await PT recommendations. Qualifiers: Encounter type: initial encounter Qualified Code(s): S72.002A - Fracture of unspecified part of neck of left femur, initial encounter for closed fracture (5) Glaucoma Impression: The patient is prescribed both Xalatan and Alphagan at home for this condition that has affected her vision. She lives independently with her . Her poor eyesight remains as her #1 complaint as to her recovery. 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 Plan: Continue meds, and fall precautions. Qualifiers: Laterality: left (6) Hypertension Impression: The patient does not have any documented history of this and is not prescribed any medications at home. Her blood pressure upon admission was elevated at 195/77 and this may due to stress from the fractures. Today her blood pressure is moderate at 117/60's. She continues on 2 agents for for heart rate control, metoprolol and diltiazem. Plan: Continue to monitor. Qualifiers: Hypertension type: other secondary hypertension Qualified Code(s): I15.8 - Other secondary hypertension (7) Pulmonary edema Impression: The patient was thought to have crackles in her low lung lobes as per anesthesia as his pre-op exam. A chest x-ray was obtained to rule out pneumonia. There was mild pulmonary vascular congestion noted in her bilateral lobes. Final echo results show an RVSP at rest of 39 mmHg indicating mild pulmonary HTN. Plan: Continue telemetry and run only gentle IVFs. Qualifiers: Chronicity: acute Qualified Code(s): J81.0 - Acute pulmonary edema (8) UTI (urinary tract infection) Impression: Urine results show likely a UTI. Cultures are show no identifiable pathogen. The patient denies dysuria, but admits to occasional leaking. Plan: Continue Rocephin IV Q 24H, and await final cultures. Qualifiers: Urinary tract infection type: acute cystitis
[2018-05-12] MEDS ORDERED: SODIUM CHLORIDE 0.9% 500 ML IV PRN (11:19)
[2018-05-12] MEDS: cefTRIAXone 2 GM in SODIUM CHLORIDE 0.9% MINIBAG 100 ML IV SCH (11:40)
[2018-05-12] MEDS ORDERED: SODIUM CHLORIDE 0.9% 1,000 ML IV SCH (14:00)
--- NOTE | 2018-05-12 14:52 | PROVIDER PROGRESS NOTE ---
Subjective - Prog Note Date Prog Note Date: 05/12/18 - Subjective Subjective: She says that she is okay and denies pain in the left hip or groin. She notes that she is more concerned about going the bathroom at this very moment. Objective - Vital Signs/Intake & Output Vital Signs: Vital Signs x48h Temp Pulse Pulse Pulse Resp BP BP 05/12/18 13:13 36.9 C 83 18 05/12/18 11:11 54 L 61 114/49 L 05/12/18 09:32 36.8 C 58 L 20 05/12/18 08:43 130/43 L BP BP Pulse Ox 05/12/18 13:13 103/57 L 98 05/12/18 11:11 104/54 L 05/12/18 09:32 135/49 H 95 05/12/18 08:43 Intake & Output: Intake & Output 05/09/18 05/10/18 05/11/18 05/12/18 23:59 23:59 23:59 23:59 Intake Total 2158.000 1750 914 690 Output Total 650 875 200 Balance 1508.000 875 714 690 - Lab Results Fish Bones: 05/12/18 05:45 05/12/18 05:45 Other Labs: Lab Results x24hrs 05/12/18 05/12/18 05/12/18 Range/Units 05:45 05:45 05:45 WBC 7.2 (4.8-10.8) x10^3/uL RBC 2.74 L (4.20-5.40) 10^6/uL Hgb 9.1 L (12.0-16.0) g/dL Hct 26.6 L (37.0-47.0) % MCV 97.0 (81.0-99.0) fL MCH 33.2 H (27.0-31.0) pg MCHC 34.3 (32.0-36.0) g/dL RDW 13.3 (12.0-15.0) % Plt Count 406 (130-450) 10^3/uL MPV 7.2 L (7.9-10.8) fL Neut # (Auto) 5.2 (1.5-6.6) 10^3/uL Lymph # (Auto) 0.9 L (1.5-3.5) 10^3/uL [place] # (Auto) 0.8 (0.0-1.0) 10^3/uL Eos # (Auto) 0.2 (0.0-0.7) 10^3/uL Baso # (Auto) 0.1 (0.0-0.1) 10^3/uL Absolute Nucleated RBC 0.00 x10^3/uL Nucleated RBC % 0.0 /100WBC Sodium 134 L (135-145) mmol/L Potassium 4.5 (3.5-5.0) mmol/L Chloride 98 L (101-111) mmol/L Carbon Dioxide 29 (21-32) mmol/L Anion Gap 7.0 (6-13) BUN 16 (6-20) mg/dL Creatinine 0.7 (0.4-1.0) mg/dL Estimated GFR (MDRD) 79 L (>89) Glucose 128 H (70-100) mg/dL Calcium 8.0 L (8.5-10.3) mg/dL Magnesium 2.2 (1.7-2.8) mg/dL Total Bilirubin 0.4 (0.2-1.0) mg/dL AST 47 H (10-42) IU/L ALT 28 (10-60) IU/L Alkaline Phosphatase 63 (42-121) IU/L B-Natriuretic Peptide 424 H (5-100) pg/mL Total Protein 5.4 L (6.7-8.2) g/dL Albumin 2.2 L (3.2-5.5) g/dL Globulin 3.2 (2.1-4.2) g/dL Albumin/Globulin Ratio 0.7 L (1.0-2.2) - Other Results/Comments Other Results/Comments: Patient is seen and examined noted to be with her left hip flexed to about 45. She is gently logrolled with internal/external rotation is able to maintain the hip flexion against some resistance she also may extend to 0 with gentle log rolling denies pain thigh calf soft nontender. Left hip dressing new silver type dressing clean dry and intact no erythema appreciated thigh calf soft nontender. Assessment/Plan - Problem List (1) Femoral neck fracture Impression: Patient is doing relatively well as a pertains to her left hip surgery. I recommend maintaining hip precautions. Patient should have SCD boots while she is in bed and she should have abduction pillow in place at all times while she is in bed. She should maintain hip precautions. She should ambulate or transfer with assistance and assistive device at all times. Recommend incentive spirometer often Patient should maintain DVT prophylaxis per hospitalist service. She will continue medical management per hospitalist service. She may discharge to senior living facility from the orthopedic perspective, pending medical stability and management. Qualifiers: Encounter type: initial encounter Fracture type: closed Laterality: left
[2018-05-12] MEDS: LATANOPROST 0.005% OPHTH DROPS LEFTEYE SCH (20:30)
[2018-05-13] MEDS ORDERED: diltiaZEM INJ 5 MG/ML VIAL IVP ONE (00:15)
[2018-05-13] MEDS: SODIUM CHLORIDE FLUSH 0.9% 10 ML SYRINGE IVP SCH ×3 (00:35→17:22)
[2018-05-13] MEDS ORDERED: SODIUM CHLORIDE 0.9% 500 ML IV ONE (03:27)
[2018-05-13 06:06] LABS: BASOPHILS # (AUTO) 0.1 10^3/uL (0.0-0.1); BASOPHILS % (AUTO) 1.2 %; EOSINOPHILS # (AUTO) 0.4 10^3/uL (0.0-0.7); EOSINOPHILS % (AUTO) 5.6 %; HGB - HEMOGLOBIN 10.3 g/dL (12.0-16.0); LYMPHOCYTES # (AUTO) 1.2 10^3/uL (1.5-3.5); LYMPHOCYTES % (AUTO) 17.9 %; MEAN CORPUSCULAR HEMOGLOBIN 33.5 pg (27.0-31.0); MEAN CORPUSCULAR HGB CONC 34.1 g/dL (32.0-36.0); MEAN CORPUSCULAR VOLUME 98.2 fL (81.0-99.0); MEAN PLATELET VOLUME 7.3 fL (7.9-10.8); MONOCYTES # (AUTO) 0.7 10^3/uL (0.0-1.0); MONOCYTES % (AUTO) 10.1 %; NEUTROPHILS # (AUTO) 4.5 10^3/uL (1.5-6.6); NEUTROPHILS % (AUTO) 65.2 %; PLT - PLATELET COUNT 506 10^3/uL (130-450); RED BLOOD COUNT 3.08 10^6/uL (4.20-5.40); RED CELL DISTRIBUTION WIDTH 13.4 % (12.0-15.0); WHITE BLOOD COUNT 6.9 x10^3/uL (4.8-10.8)
[2018-05-13 06:22] LABS: ALBUMIN 2.5 g/dL (3.2-5.5); ALBUMIN/GLOBULIN RATIO 0.8 (1.0-2.2); BILIRUBIN,TOTAL 0.6 mg/dL (0.2-1.0); CALCIUM 8.3 mg/dL (8.5-10.3); CREATININE 0.6 mg/dL (0.4-1.0); TOTAL PROTEIN 5.8 g/dL (6.7-8.2)
[2018-05-13] MEDS: BRIMONIDINE 0.1% OPHTH DROPS 5 ML LEFTEYE SCH ×2 (09:28→20:29)
[2018-05-13] MEDS: METOPROLOL SUCCINATE 25 MG TABLET PO SCH ×2 (09:29→20:31)
[2018-05-13] MEDS: POLYETHYLENE GLYCOL 3350 17 GM PACKET PO SCH (09:29)
[2018-05-13] MEDS: MAGNESIUM OXIDE 400 MG TABLET PO SCH ×2 (09:29→20:30)
[2018-05-13] MEDS: CALCIUM CITRATE 250 MG TABLET PO SCH ×2 (09:29→20:30)
[2018-05-13] MEDS: MULTIVITAMIN W/MINERALS TABLET PO SCH (09:29)
[2018-05-13] MEDS: CHOLECALCIFEROL 1,000 UNIT TABLET PO SCH (09:29)
[2018-05-13] MEDS: ACETAMINOPHEN 325 MG TABLET PO PRN (10:16)
--- NOTE | 2018-05-13 11:52 | PROVIDER PROGRESS NOTE ---
Subjective - General Admit Date: 05/08/18 Procedure Date: 05/09/18 Post Op Days: 4 - Review of Systems Wound/Incisions: positive: Dressing dry and intact General: positive: Weakness Musculoskeletal: positive: Joint pain Objective - Patient Data Reviewed Vital Signs: Yes Vital Signs: Vital Signs x48h Temp Pulse Resp BP BP Pulse Ox 05/13/18 08:00 37.3 C 84 20 111/53 L 96 05/13/18 06:59 134/48 H 05/13/18 04:00 37.1 C 54 L 18 141/49 H 96 Intake & Output: Intake and Output Totals x24h 05/11/18 05/12/18 05/13/18 23:59 23:59 23:59 Intake Total 914 1590 360 Output Total 200 Balance 714 1590 360 - Lab Results Lab Results: 05/13/18 05:25 05/13/18 05:25 Other Lab Results: Lab Results x24hrs 05/13/18 05/13/18 Range/Units 05:25 05:25 WBC 6.9 (4.8-10.8) x10^3/uL RBC 3.08 L (4.20-5.40) 10^6/uL Hgb 10.3 L (12.0-16.0) g/dL Hct 30.2 L (37.0-47.0) % MCV 98.2 (81.0-99.0) fL MCH 33.5 H (27.0-31.0) pg MCHC 34.1 (32.0-36.0) g/dL RDW 13.4 (12.0-15.0) % Plt Count 506 H (130-450) 10^3/uL MPV 7.3 L (7.9-10.8) fL Neut # (Auto) 4.5 (1.5-6.6) 10^3/uL Lymph # (Auto) 1.2 L (1.5-3.5) 10^3/uL [place] # (Auto) 0.7 (0.0-1.0) 10^3/uL Eos # (Auto) 0.4 (0.0-0.7) 10^3/uL Baso # (Auto) 0.1 (0.0-0.1) 10^3/uL Absolute Nucleated RBC 0.00 x10^3/uL Nucleated RBC % 0.1 /100WBC Sodium 135 (135-145) mmol/L Potassium 4.4 (3.5-5.0) mmol/L Chloride 98 L (101-111) mmol/L Carbon Dioxide 28 (21-32) mmol/L Anion Gap 9.0 (6-13) BUN 15 (6-20) mg/dL Creatinine 0.6 (0.4-1.0) mg/dL Estimated GFR (MDRD) 94 (>89) Glucose 120 H (70-100) mg/dL Calcium 8.3 L (8.5-10.3) mg/dL Total Bilirubin 0.6 (0.2-1.0) mg/dL AST 97 H (10-42) IU/L ALT 64 H (10-60) IU/L Alkaline Phosphatase 90 (42-121) IU/L Total Protein 5.8 L (6.7-8.2) g/dL Albumin 2.5 L (3.2-5.5) g/dL Globulin 3.3 (2.1-4.2) g/dL Albumin/Globulin Ratio 0.8 L (1.0-2.2) - Imaging Results Radiology Imaging: positive: EMP read indepedently - Current Medications Current Medications: Current Medications Generic Name Dose Route Start Last Admin Trade Name Freq PRN Reason Stop Dose Admin Acetaminophen 650 - 975 mg 05/09/18 11:58 05/13/18 10:16 Tylenol PO 650 mg Q4HR PRN Administration PAIN Brimonidine Tartrate 1 drops 05/09/18 09:00 05/13/18 09:28 Alphagan P 0.1% Ophth Drops LEFTEYE 1 drops BID [place] Administration Calcium Citrate 250 mg 05/09/18 21:00 05/13/18 09:29 PO 250 mg BID [place] Administration Cholecalciferol 2,000 unit 05/09/18 21:00 05/13/18 09:29 Vitamin D3 PO 2,000 unit DAILY [place] Administration Diltiazem HCl 60 mg 05/13/18 01:00 05/13/18 06:59 Cardizem PO 60 mg Q6HR [place] Administration Ceftriaxone Sodium 2 gm/ 100 mls @ 200 mls/hr 05/10/18 11:00 05/12/18 12:13 Sodium Chloride IV Infused Q24H [place] Infusion Latanoprost 1 drops 05/09/18 21:00 05/12/18 20:30 Xalatan Ophth Drops LEF[place]YE 1 drops QPM [place] Administration Magnesium Oxide 400 mg 05/10/18 14:00 05/13/18 09:29 Mag Ox PO 400 mg BID [place] Administration Metoprolol Succinate 50 mg 05/11/18 21:00 05/13/18 09:29 Toprol Xl PO 50 mg BID [place] Administration Mineral Oil 1 applic 05/10/18 15:02 05/10/18 15:57 Cavilon TOP 1 applic PRN PRN Administration Skin Care Multivitamins/Minerals 1 tab 05/10/18 08:00 05/13/18 09:29 Theragran M PO 1 tab DAILYWM [place] Administration Oxycodone HCl 5 mg 05/09/18 11:58 05/12/18 20:40 Roxicodone PO 5 mg Q4HR PRN Administration PAIN Polyethylene Glycol 17 gm 05/09/18 09:00 05/13/18 09:29 Miralax PO Not Given DAILY [place] Sodium Chloride 10 ml 05/09/18 17:00 05/13/18 09:30 Normal Saline Flush 0.9% IVP Not Given 0100,0900,1700 [place] Sodium Chloride 10 ml 05/09/18 11:58 05/12/18 02:52 Normal Saline Flush 0.9% IVP 10 ml PRN PRN Administration NEEDED PER PROVIDER ORDERS Impression/Plan - Problem List Problem List: Pt had complaints of pinching areas in her cast. She is not having any severe hip pain and seems to be progressing slowly with PT and with plans for ECF at some point. The patient's cast was trimmed and she is now comfortable.
[2018-05-13] MEDS: cefTRIAXone 2 GM in SODIUM CHLORIDE 0.9% MINIBAG 100 ML IV SCH (11:54)
[2018-05-13] MEDS: oxyCODONE 5 MG TABLET PO PRN (20:33)
[2018-05-13] MEDS: LATANOPROST 0.005% OPHTH DROPS LEFTEYE SCH (20:36)
[2018-05-14] MEDS: SODIUM CHLORIDE FLUSH 0.9% 10 ML SYRINGE IVP SCH ×2 (01:11→08:44)
[2018-05-14] MEDS: oxyCODONE 5 MG TABLET PO PRN ×2 (03:44→19:23)
[2018-05-14 06:44] LABS: BASOPHILS # (AUTO) 0.1 10^3/uL (0.0-0.1); BASOPHILS % (AUTO) 0.9 %; EOSINOPHILS # (AUTO) 0.4 10^3/uL (0.0-0.7); EOSINOPHILS % (AUTO) 7.1 %; HGB - HEMOGLOBIN 9.5 g/dL (12.0-16.0); LYMPHOCYTES # (AUTO) 0.6 10^3/uL (1.5-3.5); MEAN CORPUSCULAR HEMOGLOBIN 33.1 pg (27.0-31.0); MEAN CORPUSCULAR HGB CONC 33.9 g/dL (32.0-36.0); MEAN CORPUSCULAR VOLUME 97.7 fL (81.0-99.0); MEAN PLATELET VOLUME 7.4 fL (7.9-10.8); MONOCYTES # (AUTO) 0.6 10^3/uL (0.0-1.0); MONOCYTES % (AUTO) 10.1 %; NEUTROPHILS # (AUTO) 4.1 10^3/uL (1.5-6.6); NEUTROPHILS % (AUTO) 70.9 %; PLT - PLATELET COUNT 521 10^3/uL (130-450); RED BLOOD COUNT 2.87 10^6/uL (4.20-5.40); RED CELL DISTRIBUTION WIDTH 13.6 % (12.0-15.0); WHITE BLOOD COUNT 5.8 x10^3/uL (4.8-10.8)
[2018-05-14 06:59] LABS: ALBUMIN 2.3 g/dL (3.2-5.5); ALBUMIN/GLOBULIN RATIO 0.7 (1.0-2.2); BILIRUBIN,TOTAL 0.7 mg/dL (0.2-1.0); CREATININE 0.6 mg/dL (0.4-1.0); TOTAL PROTEIN 5.4 g/dL (6.7-8.2)
[2018-05-14] MEDS: MAGNESIUM OXIDE 400 MG TABLET PO SCH ×2 (08:42→19:24)
[2018-05-14] MEDS: MULTIVITAMIN W/MINERALS TABLET PO SCH (08:42)
[2018-05-14] MEDS: CHOLECALCIFEROL 1,000 UNIT TABLET PO SCH (08:42)
[2018-05-14] MEDS: CALCIUM CITRATE 250 MG TABLET PO SCH ×2 (08:42→19:24)
[2018-05-14] MEDS: METOPROLOL SUCCINATE 25 MG TABLET PO SCH (08:42)
[2018-05-14] MEDS: BRIMONIDINE 0.1% OPHTH DROPS 5 ML EACHEYE SCH ×2 (08:43→19:24)
[2018-05-14] MEDS: POLYETHYLENE GLYCOL 3350 17 GM PACKET PO SCH (08:44)
[2018-05-14] MEDS: SACCHAROMYCES BOULARDII 250 MG CAPSULE PO SCH ×2 (12:21→17:30)
--- NOTE | 2018-05-14 12:28 | PROVIDER PROGRESS NOTE ---
Subjective - Prog Note Date Prog Note Date: 05/13/18 Prog Note Time: 08:00 - Subjective Pt reports feeling: No change Subjective: Marisol complains of not being able to see and feels that people are "forcing her to eat all the time". Her is at the bedside for this exam. She denies any new symptoms such as shortness of breath, nausea, vomiting, rashes, or a new cough. Objective - Vital Signs/Intake & Output Reviewed Vital Signs: Yes Vital Signs: Vital Signs x48h Temp Pulse Resp BP BP Pulse Ox 05/14/18 12:21 123/53 L 05/14/18 08:26 37.1 C 81 18 132/56 H 93 05/14/18 06:26 125/89 H Intake & Output: Intake & Output 05/11/18 05/12/18 05/13/18 05/14/18 23:59 23:59 23:59 23:59 Intake Total 914 1590 960 940 Output Total 200 Balance 714 1590 960 940 - Objective General Appearance: positive: Alert, Moderate distress, Anxious Eyes Bilateral: positive: PERRL Eyes: OU Conjunctivae pale, OU Scleral icterus, OU Other (blindness) ENT: positive: No signs of dehydration Neck: positive: Thyroid nml, No JVD, Trachea midline, Stiff neck Respiratory: positive: Chest non-tender, No respiratory distress, Other (diminished with scattered crackles.) Cardiovascular: positive: No gallop, Irregularly irregular, Tachycardia, Systolic murmur Peripheral Pulses: 1+ Radial (R), 1+ Radial (L) Abdomen: positive: Non-tender, Nml bowel sounds, Other (rounded, soft) Back: positive: Nml inspection Skin: positive: No rash, Warm, Dry Extremities: positive: Non-tender, Full ROM, Pedal edema, Joint swelling (left hip, expected post-op swelling. Dressing is CDI.) Neurologic/Psychiatric: positive: Oriented x3, CN's nml (2-12), Motor nml, Sensation nml, Weakness, Depressed mood/affect Reflexes: Bicep (R): 3+, Bicep (L): 1+ - Lab Results Fish Bones: 05/14/18 05:33 05/14/18 05:33 Other Labs: Lab Results x24hrs 05/14/18 05/14/18 Range/Units 05:33 05:33 WBC 5.8 (4.8-10.8) x10^3/uL RBC 2.87 L (4.20-5.40) 10^6/uL Hgb 9.5 L (12.0-16.0) g/dL Hct 28.1 L (37.0-47.0) % MCV 97.7 (81.0-99.0) fL MCH 33.1 H (27.0-31.0) pg MCHC 33.9 (32.0-36.0) g/dL RDW 13.6 (12.0-15.0) % Plt Count 521 H (130-450) 10^3/uL MPV 7.4 L (7.9-10.8) fL Neut # (Auto) 4.1 (1.5-6.6) 10^3/uL Lymph # (Auto) 0.6 L (1.5-3.5) 10^3/uL [place] # (Auto) 0.6 (0.0-1.0) 10^3/uL Eos # (Auto) 0.4 (0.0-0.7) 10^3/uL Baso # (Auto) 0.1 (0.0-0.1) 10^3/uL Absolute Nucleated RBC 0.01 x10^3/uL Nucleated RBC % 0.2 /100WBC Sodium 135 (135-145) mmol/L Potassium 4.2 (3.5-5.0) mmol/L Chloride 100 L (101-111) mmol/L Carbon Dioxide 27 (21-32) mmol/L Anion Gap 8.0 (6-13) BUN 15 (6-20) mg/dL Creatinine 0.6 (0.4-1.0) mg/dL Estimated GFR (MDRD) 94 (>89) Glucose 108 H (70-100) mg/dL Calcium 8.0 L (8.5-10.3) mg/dL Total Bilirubin 0.7 (0.2-1.0) mg/dL AST 77 H (10-42) IU/L ALT 63 H (10-60) IU/L Alkaline Phosphatase 80 (42-121) IU/L Total Protein 5.4 L (6.7-8.2) g/dL Albumin 2.3 L (3.2-5.5) g/dL Globulin 3.1 (2.1-4.2) g/dL Albumin/Globulin Ratio 0.7 L (1.0-2.2) ABX Reporting Has patient been on IV antibiotics over the past 48 hours?: Yes Assessment/Plan - Problem List (1) Atrial fibrillation with rapid ventricular response Impression: The patient was given diltiazem IV, metoprolol IV, with and transitioned to metoprolol succinate and scheduled diltiazem. The patient still continues to have episodes of sustained tachycardia, but remains somewhat hypotensive, thereby, not allowing for any adjustments today. Plan: Monitor on tele, continue dilt, and continue with metoprolol. *The patient has an extended length of stay due to this new finding on this admission. The patient at first, was having palpitations, and her blood pressure was showing intolerance to her tachycardia. Now that she has had several days of medication therapy, these 2 problems are resolved, but another 24 hours of stay is warranted due to the continued times of heart rates in the 100-120's that have been unpredictable. (2) Fall from slip, trip, or stumble Impression: The patient described how she was in her kitchen with the dishwasher door open, did not see it and accidentally tripped over it. She fell on her left hip injuring her left hip and left wrist. She saw her PCP who sent her to orthopedic surgery to evaluate her left wrist. After getting back home, she had increased pain to her left hip, and was non-ambulatory. She is now post op after a left hip repair and will need SNF after this hospital stay-but due to financial constraints and the lack of insurance, she will return home with her . Plan: PT/OT post op, and fall precautions. Qualifiers: Encounter type: initial encounter Qualified Code(s): W01.0XXA - Fall on same level from slipping, tripping and stumbling without subsequent striking against object, initial encounter (3) Distal radius fracture, left Impression: The patient fell after stumbling over an open community arts centre manager in her kitchen, which caused her to fracture her left wrist. She was set with a cast as an out patient via ortho surgery. Her left hand remains very discolored, warm and non- tender. A call was made to Dr. Donahue in regards to some skin irritation noted around her left thumb related to the cast. Dr. Donahue paid a visit and made an adjustment to her cast, so she is much more comfortable now. Plan: Continue to monitor, PT/ OT recommendations. Qualifiers: Encounter type: initial encounter Fracture type: closed (4) Fracture of femoral neck, left, closed Impression: The patient stumbled over her community arts centre manager at home, fell to her left side and did not notice her left hip soreness right at first. After at least 24 hours, the patient could no longer walk. She is now post op after a left hip repair with Dr. Banuelos. The post op course was uneventful so far with minimal blood loss. She can move to the chair with moderate assistance from nursing or PT. She will not go to SNF since financial arrangements will not be made by the family. Plan: Continue ASA and await PT recommendations. Qualifiers: Encounter type: initial encounter Qualified Code(s): S72.002A - Fracture of unspecified part of neck of left femur, initial encounter for closed fracture (5) Glaucoma Impression: The patient is prescribed both Xalatan and Alphagan at home for this condition that has affected her vision. She lives independently with her . Her poor eyesight remains as her #1 complaint as to her recovery. 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 Plan: Continue meds, and fall precautions. Qualifiers: Laterality: left (6) Hypertension Impression: The patient does not have any documented history of this and is not prescribed any medications at home. Her blood pressure upon admission was elevated at 195/77 and this may due to stress from the fractures. She continues on 2 agents for for heart rate control, metoprolol and diltiazem, but I met with Dr. Alba this morning, and the least amount of changes is the best for her as her eye sight is very poor, and her STM may influence compliance. Plan: Continue to monitor. Qualifiers: Hypertension type: other secondary hypertension Qualified Code(s): I15.8 - Other secondary hypertension (7) Pulmonary edema Impression: The patient was thought to have crackles in her low lung lobes as per anesthesia as his pre-op exam. A chest x-ray was obtained to rule out pneumonia. There was mild pulmonary vascular congestion noted in her bilateral lobes. Final echo results show an RVSP at rest of 39 mmHg indicating mild pulmonary HTN. Plan: Continue telemetry and run only gentle IVFs. Qualifiers: Chronicity: acute Qualified Code(s): J81.0 - Acute pulmonary edema (8) UTI (urinary tract infection) Impression: Urine results show likely a UTI. Cultures are show no identifiable pathogen. The patient denies dysuria, but admits to occasional leaking. Plan: Continue Rocephin IV Q 24H, and await final cultures. Qualifiers: Urinary tract infection type: acute cystitis
--- NOTE | 2018-05-14 12:45 | Discharge Plan ---
Discharge Plan Disposition: Home, Self Care Condition: Fair Prescriptions: Aspirin EC [Ecotrin] 325 mg PO DAILY #30 tablet Cholecalciferol (Vitamin D3) [Vitamin D3] 1,000 unit PO DAILY #30 capsule diltiaZEM CD [Cardizem Cd] 120 mg PO DAILY #30 capsule Multivitamin W/Minerals [Theragran M] 1 tab PO DAILYWM #30 tablet Diet: Regular Activity Restrictions: Activity as Tolerated Shower Restrictions: No Driving Restrictions: Yes Assistance Devices: Walker Weight Bearing: Full Weight Additional Instructions or Follow Up instructions: You were admitted after a fall to your left side. Dr. Banuelos repaired your left hip and you underwent PT/OT evaluation. Your left wrist remained in a cast. A platform for your walker was ordered, and home health service will help you at home. You were found to have a heart arrhythmia and started on a rate control medication. Please pick this up from the pharmacy. Your urine was suspicious for a UTI, but no culture grew, so no further treatment is necessary. Please see Dr. Alba within one week. Follow-Up Care: Home Health - PT, Home Health - OT No Smoking: If you smoke, Please STOP! Call for help. Follow-up with: Mario Alberto Alba MD [Primary Care Provider] -
--- NOTE | 2018-05-14 12:52 | DISCHARGE SUMMARY ---
"Discharge Summary Discharge Date: 05/14/18 Discharging Provider: CAMILO Schafer Primary Care Provider: Dr. Alba Code Status: Attempt Resuscitation Condition at Discharge: Fair Discharge Disposition: Home Health Service - CONSULTS | PROCEDURES Consultations: Orthopedic surgery-Dr Banuelos - ALLERGIES Allergies/Adverse Reactions: Allergies Allergy/AdvReac Type Severity Reaction Status Date / Time Penicillins Allergy Hives Verified 06/05/14 09:47 Sulfa (Sulfonamide AdvReac Rash Verified 05/08/18 10:48 Antibiotics) - MEDICATIONS Home Medications: Ambulatory Orders Medication Instructions Recorded Confirmed Brimonidine 0.1% Ophth Drops 1 drop LEFTEYE BID 06/05/14 05/08/18 [Alphagan P 0.1% Ophth Drops] Latanoprost 0.005% Ophth Drops 1 drop LEFTEYE QPM 06/05/14 05/08/18 [Xalatan Ophth Drops] Aspirin EC [Ecotrin] 325 mg PO DAILY #30 tablet 05/14/18 Cholecalciferol (Vitamin D3) 1,000 unit PO DAILY #30 capsule 05/14/18 [Vitamin D3] Multivitamin W/Minerals [Theragran 1 tab PO DAILYWM #30 tablet 05/14/18 M] diltiaZEM CD [Cardizem Cd] 120 mg PO DAILY #30 capsule 05/14/18 - PHYSICAL EXAM AT DISCHARGE General Appearance: positive: No acute distress, Alert Eyes Bilateral: positive: PERRL ENT: positive: ENT inspection nml, Pharynx nml, No signs of dehydration Neck: positive: Thyroid nml, No JVD, Trachea midline, Stiff neck Respiratory: positive: Chest non-tender, No respiratory distress, Breath sounds nml, Other (diminished) Cardiovascular: positive: No gallop, Irregularly irregular, Tachycardia, Systolic murmur Peripheral Pulses: positive: 2+ Abdomen: positive: Non-tender, Nml bowel sounds, Other (rounded, soft) Back: positive: Nml inspection Skin: positive: No rash, Warm, Dry Extremities: positive: Non-tender, No pedal edema, Joint swelling (left hip, expected post-op swelling, dressing is covering wound and is CDI.) Neurologic/Psychiatric: positive: Disoriented to time, Weakness, Sensory loss, Slurred/abnml speech, Depressed mood/affect, Other (profound sight imparirment influences orientation.) - LABS Result Diagrams: 05/14/18 05:33 05/14/18 05:33 - DIAGNOSTIC IMAGING Diagnostic Imaging Results: Final report reviewed - TIME SPENT Time Spent in Discharge (Minutes): 60"
[2018-05-14] MEDS ORDERED: SODIUM CHLORIDE FLUSH 0.9% 10 ML SYRINGE ONE (14:00)
--- NOTE | 2018-05-14 17:23 | PROVIDER PROGRESS NOTE ---
Subjective - Prog Note Date Prog Note Date: 05/14/18 Prog Note Time: 17:21 - Subjective Pt reports feeling: Improved Subjective: Marisol continues to complain of her poor eyesight and planned to go home with her , but he at the last minute, cancelled her transport home. She denies any new symptoms today including shortness of breath, nausea, vomiting, diarrhea, rashes, bleeding, or a new cough. Current Medications - Current Medications Current Medications: Active Medications Acetaminophen (Tylenol) 650 - 975 mg PO Q4HR PRN PRN Reason: PAIN Last Admin: 05/13/18 10:16 Dose: 650 mg Bisacodyl (Dulcolax Supp) 10 mg ID DAILY PRN PRN Reason: Constipation Brimonidine Tartrate (Alphagan P 0.1% Ophth Drops) 1 drops EACHEYE BID [facility] Last Admin: 05/14/18 08:43 Dose: 1 drops Calcium Citrate () 250 mg PO BID [facility] Last Admin: 05/14/18 08:42 Dose: 250 mg Cholecalciferol (Vitamin D3) 2,000 unit PO DAILY [facility] Last Admin: 05/14/18 08:42 Dose: 2,000 unit Diltiazem HCl (Cardizem) 60 mg PO Q6HR [facility] Stop: 05/15/18 00:05 Last Admin: 05/14/18 12:21 Dose: 60 mg Diltiazem HCl (Cardizem Cd) 120 mg PO DAILY [facility] Docusate Sodium (Colace 100mg Capsule) 100 mg PO BID PRN PRN Reason: Constipation Latanoprost (Xalatan Ophth Drops) 1 drops EACHEYE QPM [facility] Magnesium Oxide (Mag Ox) 400 mg PO BID [facility] Last Admin: 05/14/18 08:42 Dose: 400 mg Mineral Oil (Cavilon) 1 applic TOP PRN PRN PRN Reason: Skin Care Last Admin: 05/10/18 15:57 Dose: 1 applic Morphine Sulfate (Morphine (Carpuject)) 2 mg IVP Q2HR PRN PRN Reason: PAIN Multivitamins/Minerals (Theragran M) 1 tab PO DAILYWM [facility] Last Admin: 05/14/18 08:42 Dose: 1 tab Ondansetron HCl (Zofran Inj) 4 mg IVP Q6HR PRN PRN Reason: Nausea / Vomiting Oxycodone HCl (Roxicodone) 5 mg PO Q4HR PRN PRN Reason: PAIN Last Admin: 05/14/18 03:44 Dose: 5 mg Polyethylene Glycol (Miralax) 17 gm PO DAILY [facility] Last Admin: 05/14/18 08:44 Dose: Not Given Prochlorperazine Edisylate (Compazine Inj) 10 mg IVP Q6HR PRN PRN Reason: Nausea / Vomiting Saccharomyces Boulardii (Florastor) 250 mg PO BIDWM [facility] Last Admin: 05/14/18 12:21 Dose: 250 mg Senna (Senokot) 17.2 mg PO Q12H PRN PRN Reason: Constipation Brimonidine 0.1% Ophth Drops [Alphagan P 0.1% Ophth Drops] 1 drop LEFTEYE BID 06/05/14 Latanoprost 0.005% Ophth Drops [Xalatan Ophth Drops] 1 drop LEFTEYE QPM 06/05/14 Objective - Vital Signs/Intake & Output Reviewed Vital Signs: Yes Vital Signs: Vital Signs x48h Temp Pulse Resp BP BP BP Pulse Ox 05/14/18 16:47 37.0 C 52 L 20 136/55 H 05/14/18 12:38 36.7 C 53 L 20 124/53 L 05/14/18 12:21 123/53 L Intake & Output: Intake & Output 05/11/18 05/12/18 05/13/18 05/14/18 23:59 23:59 23:59 23:59 Intake Total 914 2091 604 0060 Output Total 200 Balance 714 0513 957 9337 - Objective General Appearance: positive: No acute distress, Alert Eyes Bilateral: positive: Normal inspection, PERRL, No lid inflammation Eyes: OU Conjunctivae pale ENT: positive: ENT inspection nml, Pharyngeal erythema, Dry mucous membranes Neck: positive: Thyroid nml, No JVD, Lymphadenopathy (R), Lymphadenopathy (L), Stiff neck Respiratory: positive: Chest non-tender, No respiratory distress, Breath sounds nml, Other (diminished.) Cardiovascular: positive: No gallop, Irregularly irregular, Systolic murmur, D ecreased pulse(s) Peripheral Pulses: 1+ Radial (R), 1+ Radial (L) Abdomen: positive: Non-tender, Nml bowel sounds, Other (rounded, soft) Back: positive: Nml inspection Skin: positive: No rash, Warm, Dry Extremities: positive: Non-tender, Full ROM, Nml appearance, No pedal edema, Joint swelling (left hip swelling) Neurologic/Psychiatric: positive: CN's nml (2-12), Motor nml, Sensation nml, Disoriented to time, Weakness, Sensory loss, Slurred/abnml speech (sluggish speech), Depressed mood/affect Reflexes: Bicep (R): 2+, Bicep (L): 1+ - Lab Results Fish Bones: 05/14/18 05:33 05/14/18 05:33 Other Labs: Lab Results x24hrs 05/14/18 05/14/18 Range/Units 05:33 05:33 WBC 5.8 (4.8-10.8) x10^3/uL RBC 2.87 L (4.20-5.40) 10^6/uL Hgb 9.5 L (12.0-16.0) g/dL Hct 28.1 L (37.0-47.0) % MCV 97.7 (81.0-99.0) fL MCH 33.1 H (27.0-31.0) pg MCHC 33.9 (32.0-36.0) g/dL RDW 13.6 (12.0-15.0) % Plt Count 521 H (130-450) 10^3/uL MPV 7.4 L (7.9-10.8) fL Neut # (Auto) 4.1 (1.5-6.6) 10^3/uL Lymph # (Auto) 0.6 L (1.5-3.5) 10^3/uL [place] # (Auto) 0.6 (0.0-1.0) 10^3/uL Eos # (Auto) 0.4 (0.0-0.7) 10^3/uL Baso # (Auto) 0.1 (0.0-0.1) 10^3/uL Absolute Nucleated RBC 0.01 x10^3/uL Nucleated RBC % 0.2 /100WBC Sodium 135 (135-145) mmol/L Potassium 4.2 (3.5-5.0) mmol/L Chloride 100 L (101-111) mmol/L Carbon Dioxide 27 (21-32) mmol/L Anion Gap 8.0 (6-13) BUN 15 (6-20) mg/dL Creatinine 0.6 (0.4-1.0) mg/dL Estimated GFR (MDRD) 94 (>89) Glucose 108 H (70-100) mg/dL Calcium 8.0 L (8.5-10.3) mg/dL Total Bilirubin 0.7 (0.2-1.0) mg/dL AST 77 H (10-42) IU/L ALT 63 H (10-60) IU/L Alkaline Phosphatase 80 (42-121) IU/L Total Protein 5.4 L (6.7-8.2) g/dL Albumin 2.3 L (3.2-5.5) g/dL Globulin 3.1 (2.1-4.2) g/dL Albumin/Globulin Ratio 0.7 L (1.0-2.2) ABX Reporting Has patient been on IV antibiotics over the past 48 hours?: No Assessment/Plan - Problem List (1) Atrial fibrillation with rapid ventricular response Impression: The patient was cut back to just diltiazem CD at 120 mg PO daily today as she was medically cleared to return home with her . She is no longer on telemetry and this condition is stable. A prescription has been sent to her pharmacy for the oral diltiazem. Plan: continue medication daily and monitor vital signs. (2) Fall from slip, trip, or stumble Impression: The patient described how she was in her kitchen with the washer carcass door open, did not see it and accidentally tripped over it. She fell on her left hip injuring her left hip and left wrist. She saw her PCP who sent her to orthopedic surgery to evaluate her left wrist. After getting back home, she had increased pain to her left hip, and was non-ambulatory. She is now post op after a left hip repair and will need SNF after this hospital stay-but due to financial constraints and the lack of insurance, she will return home with her . Plans were for her to return home today, but at the last moment, the patient's refused to bring her home. Plan: Continue fall precautions. Qualifiers: Encounter type: initial encounter Qualified Code(s): W01.0XXA - Fall on same level from slipping, tripping and stumbling without subsequent striking against object, initial encounter (3) Distal radius fracture, left Impression: The patient fell after stumbling over an open polls or surveys interviewer in her kitchen, which caused her to fracture her left wrist. She was set with a cast as an out patient via ortho surgery. Her left hand remains very discolored, warm and non- tender. A call was made to Dr. Donahue in regards to some skin irritation noted around her left thumb related to the cast. Dr. Donauhe paid a visit and made an adjustment to her cast, so she is much more comfortable now. Plan: Continue to monitor, PT/ OT recommendations. Qualifiers: Encounter type: initial encounter Fracture type: closed (4) Fracture of femoral neck, left, closed Impression: The patient stumbled over her polls or surveys interviewer at home, fell to her left side and did not notice her left hip soreness right at first. After at least 24 hours, the patient could no longer walk. She is now post op after a left hip repair with Dr. Banuelos. The post op course was uneventful so far with minimal blood loss. She can move to the chair with moderate assistance from nursing or PT. She will not go to SNF since financial arrangements will not be made by the family. Plan: Continue ASA and post op care. Qualifiers: Encounter type: initial encounter Qualified Code(s): S72.002A - Fracture of unspecified part of neck of left femur, initial encounter for closed fracture (5) Glaucoma Impression: The patient is prescribed both Xalatan and Alphagan at home for this condition that has affected her vision. She lives independently with her . Her poor eyesight remains as her #1 complaint as to her recovery. 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 Plan: Continue meds, and fall precautions. Qualifiers: Laterality: left (6) Hypertension Impression: The patient does not have any documented history of this and is not prescribed any medications at home. The patient remains on diltiazem, which has been sent to her pharmacy. Plan: Continue to monitor and give daily med. Qualifiers: Hypertension type: other secondary hypertension Qualified Code(s): I15.8 - Other secondary hypertension (7) Pulmonary edema Impression: The patient was thought to have crackles in her low lung lobes as per anesthesia as his pre-op exam. A chest x-ray was obtained to rule out pneumonia. There was mild pulmonary vascular congestion noted in her bilateral lobes. Final echo results show an RVSP at rest of 39 mmHg indicating mild pulmonary HTN. Plan: Continue to monitor. Qualifiers: Chronicity: acute Qualified Code(s): J81.0 - Acute pulmonary edema (8) UTI (urinary tract infection) Impression: Urine results showed a UTI. Cultures are show no identifiable pathogen. The patient denies dysuria, but admits to occasional leaking. The patient was treated with Rocephin IV, then discontinued as her treatment is no longer needed. Plan: Continue to monitor. Qualifiers: Urinary tract infection type: acute cystitis
[2018-05-14] MEDS: LATANOPROST 0.005% OPHTH DROPS EACHEYE SCH (21:05)
[2018-05-15 08:01] LABS: BASOPHILS # (AUTO) 0.1 10^3/uL (0.0-0.1); BASOPHILS % (AUTO) 1.1 %; EOSINOPHILS # (AUTO) 0.2 10^3/uL (0.0-0.7); EOSINOPHILS % (AUTO) 3.3 %; HGB - HEMOGLOBIN 9.9 g/dL (12.0-16.0); LYMPHOCYTES # (AUTO) 0.6 10^3/uL (1.5-3.5); LYMPHOCYTES % (AUTO) 10.5 %; MEAN CORPUSCULAR HEMOGLOBIN 33.3 pg (27.0-31.0); MEAN CORPUSCULAR HGB CONC 34.6 g/dL (32.0-36.0); MEAN CORPUSCULAR VOLUME 96.1 fL (81.0-99.0); MEAN PLATELET VOLUME 6.9 fL (7.9-10.8); MONOCYTES # (AUTO) 0.7 10^3/uL (0.0-1.0); MONOCYTES % (AUTO) 11.6 %; NEUTROPHILS # (AUTO) 4.1 10^3/uL (1.5-6.6); NEUTROPHILS % (AUTO) 73.5 %; PLT - PLATELET COUNT 586 10^3/uL (130-450); RED BLOOD COUNT 2.98 10^6/uL (4.20-5.40); RED CELL DISTRIBUTION WIDTH 13.3 % (12.0-15.0); WHITE BLOOD COUNT 5.6 x10^3/uL (4.8-10.8)
[2018-05-15 08:12] LABS: ALBUMIN 2.6 g/dL (3.2-5.5); ALBUMIN/GLOBULIN RATIO 0.9 (1.0-2.2); BILIRUBIN,TOTAL 0.9 mg/dL (0.2-1.0); CALCIUM 8.4 mg/dL (8.5-10.3); CREATININE 0.6 mg/dL (0.4-1.0); MAGNESIUM 2.2 mg/dL (1.7-2.8); TOTAL PROTEIN 5.5 g/dL (6.7-8.2)
[2018-05-15] MEDS ORDERED: METOPROLOL 5 MG/5 ML VIAL IVP ONE (08:38)
[2018-05-15] MEDS: METOPROLOL 5 MG/5 ML VIAL IVP ONE ×2 (08:43→09:05)
[2018-05-15] MEDS ORDERED: SODIUM CHLORIDE FLUSH 0.9% 10 ML SYRINGE ONE ×3 (08:47→11:24)
[2018-05-15] MEDS ORDERED: diltiaZEM CD 120 MG CAPSULE PO SCH (09:00)
[2018-05-15] MEDS ORDERED: METOPROLOL SUCCINATE 50 MG TABLET PO SCH ×2 (09:00→21:00)
[2018-05-15] MEDS ORDERED: METOPROLOL 5 MG/5 ML VIAL IVP PRN (09:19)
[2018-05-15] MEDS ORDERED: METOPROLOL 5 MG/5 ML VIAL IVP STA (09:27)
[2018-05-15] MEDS: CHOLECALCIFEROL 1,000 UNIT TABLET PO SCH (10:27)
[2018-05-15] MEDS: POLYETHYLENE GLYCOL 3350 17 GM PACKET PO SCH (10:27)
[2018-05-15] MEDS: MULTIVITAMIN W/MINERALS TABLET PO SCH (10:27)
[2018-05-15] MEDS: CALCIUM CITRATE 250 MG TABLET PO SCH ×2 (10:27→20:48)
[2018-05-15] MEDS: SACCHAROMYCES BOULARDII 250 MG CAPSULE PO SCH ×2 (10:27→18:04)
[2018-05-15] MEDS: BRIMONIDINE 0.1% OPHTH DROPS 5 ML EACHEYE SCH ×2 (10:27→23:29)
[2018-05-15] MEDS: MAGNESIUM OXIDE 400 MG TABLET PO SCH ×2 (10:27→20:51)
[2018-05-15] MEDS ORDERED: diltiaZEM INJ 5 MG/ML VIAL IVP ONE (10:52)
[2018-05-15] MEDS ORDERED: SODIUM CHLORIDE 0.9% 1,000 ML IV ONE (11:34)
[2018-05-15] MEDS ORDERED: SODIUM CHLORIDE 0.9% 500 ML IV ONE (11:36)
--- NOTE | 2018-05-15 13:21 | PROVIDER PROGRESS NOTE ---
Subjective - Prog Note Date Prog Note Date: 05/15/18 - Subjective Pt reports feeling: No change Subjective: pt did not report any complaints. She reported she was very worried about her 's medical conditions since pt's had stroke in the morning. She denies palpitation, chest pain, SOB. Current Medications - Current Medications Current Medications: Active Medications Acetaminophen (Tylenol) 650 - 975 mg PO Q4HR PRN PRN Reason: PAIN Last Admin: 05/13/18 10:16 Dose: 650 mg Bisacodyl (Dulcolax Supp) 10 mg [place] DAILY PRN PRN Reason: Constipation Brimonidine Tartrate (Alphagan P 0.1% Ophth Drops) 1 drops EACHEYE BID [facility] Last Admin: 05/15/18 10:27 Dose: 1 drops Calcium Citrate () 250 mg PO BID [facility] Last Admin: 05/15/18 10:27 Dose: 250 mg Cholecalciferol (Vitamin D3) 2,000 unit PO DAILY [facility] Last Admin: 05/15/18 10:27 Dose: 2,000 unit Diltiazem HCl (Cardizem Cd) 120 mg PO DAILY [facility] Last Admin: 05/15/18 08:26 Dose: 120 mg Docusate Sodium (Colace 100mg Capsule) 100 mg PO BID PRN PRN Reason: Constipation Latanoprost (Xalatan Ophth Drops) 1 drops EACHEYE QPM [facility] Last Admin: 05/14/18 21:05 Dose: 1 drops Magnesium Oxide (Mag Ox) 400 mg PO BID [facility] Last Admin: 05/15/18 10:27 Dose: 400 mg Metoprolol Succinate (Toprol Xl) 50 mg PO BID [facility] Mineral Oil (Cavilon) 1 applic TOP PRN PRN PRN Reason: Skin Care Last Admin: 05/10/18 15:57 Dose: 1 applic Morphine Sulfate (Morphine (Carpuject)) 2 mg IVP Q2HR PRN PRN Reason: PAIN Multivitamins/Minerals (Theragran M) 1 tab PO DAILYWM [facility] Last Admin: 05/15/18 10:27 Dose: 1 tab Ondansetron HCl (Zofran Inj) 4 mg IVP Q6HR PRN PRN Reason: Nausea / Vomiting Oxycodone HCl (Roxicodone) 5 mg PO Q4HR PRN PRN Reason: PAIN Last Admin: 05/14/18 19:23 Dose: 5 mg Polyethylene Glycol (Miralax) 17 gm PO DAILY [facility] Last Admin: 05/15/18 10:27 Dose: 17 gm Prochlorperazine Edisylate (Compazine Inj) 10 mg IVP Q6HR PRN PRN Reason: Nausea / Vomiting Saccharomyces Boulardii (Florastor) 250 mg PO BIDWM [facility] Last Admin: 05/15/18 10:27 Dose: 250 mg Senna (Senokot) 17.2 mg PO Q12H PRN PRN Reason: Constipation Brimonidine 0.1% Ophth Drops [Alphagan P 0.1% Ophth Drops] 1 drop LEFTEYE BID 06/05/14 Latanoprost 0.005% Ophth Drops [Xalatan Ophth Drops] 1 drop LEFTEYE QPM 06/05/14 Objective - Vital Signs/Intake & Output Reviewed Vital Signs: Yes Vital Signs: Vital Signs x48h Temp Pulse Pulse Pulse Resp BP BP 05/15/18 12:35 100 127/44 L 05/15/18 12:17 36.7 C 62 22 124/50 L 05/15/18 11:54 53 L 116/48 L 05/15/18 11:40 94 109/57 L 05/15/18 11:36 83 119/61 05/15/18 11:33 84 69/53 L 05/15/18 11:30 153 H 95/67 05/15/18 11:25 115/74 05/15/18 10:35 154 H 115/74 05/15/18 10:30 154 H 108/71 05/15/18 10:25 155 H 112/70 05/15/18 10:20 153 H 113/71 05/15/18 10:15 153 H 108/54 L 05/15/18 10:10 155 H 113/73 05/15/18 10:00 155 H 110/71 05/15/18 09:55 153 H 91/62 05/15/18 09:50 154 H 112/72 05/15/18 09:45 154 H 115/74 05/15/18 09:40 155 H 120/74 05/15/18 09:37 120/74 05/15/18 09:30 155 H 118/73 05/15/18 09:25 155 H 126/81 H 05/15/18 09:20 156 H 117/74 05/15/18 09:15 155 H 117/77 05/15/18 09:05 158 H 122/76 125/76 05/15/18 09:00 160 H 122/76 05/15/18 08:55 160 H 137/81 H 05/15/18 08:50 160 H 124/76 05/15/18 08:45 160 H 106/72 05/15/18 08:30 159 H 134/82 H 05/15/18 08:24 159 H 146/81 H 05/15/18 07:30 37 C 67 20 140/82 H Pulse Ox 05/15/18 12:35 05/15/18 12:17 97 05/15/18 11:54 05/15/18 11:40 05/15/18 11:36 05/15/18 11:33 05/15/18 11:30 05/15/18 11:25 05/15/18 10:35 05/15/18 10:30 05/15/18 10:25 05/15/18 10:20 05/15/18 10:15 05/15/18 10:10 05/15/18 10:00 05/15/18 09:55 05/15/18 09:50 05/15/18 09:45 05/15/18 09:40 05/15/18 09:37 05/15/18 09:30 05/15/18 09:25 05/15/18 09:20 05/15/18 09:15 05/15/18 09:05 96 05/15/18 09:00 05/15/18 08:55 05/15/18 08:50 05/15/18 08:45 05/15/18 08:30 94 05/15/18 08:24 05/15/18 07:30 92 Intake & Output: Intake & Output 05/12/18 05/13/18 05/14/18 05/15/18 23:59 23:59 23:59 23:59 Intake Total 6602 499 0488 750 Balance 4811 782 2673 750 - Objective General Appearance: positive: No acute distress, Alert. negative: Lethargic Eyes Bilateral: positive: Normal inspection, PERRL, No lid inflammation, Conjunctivae nml ENT: positive: ENT inspection nml, Pharynx nml, No signs of dehydration. negative: Purulent nasal drainage, Pharyngeal erythema, Oral lesions Neck: positive: Nml inspection, Thyroid nml, No JVD, Trachea midline. negative: Thyromegaly, Lymphadenopathy (R), Lymphadenopathy (L), Stiff neck, Swelling/bruising, Tracheal deviation Respiratory: positive: Chest non-tender, No respiratory distress, Breath sounds nml. negative: Wheezes, Rales, Rhonchi Cardiovascular: positive: Regular rate & rhythm, No murmur, No gallop. negative: Irregularly irregular, Extrasystoles, Tachycardia, Bradycardia, JVD present, Systolic murmur, Diastolic murmur Peripheral Pulses: 2+ Radial (R), 2+ Radial (L), 2+ Dorsalis pedis (R), 2+ Dorsalis pedis (L) Abdomen: positive: Non-tender, No organomegaly, Nml bowel sounds, No distention. negative: Tenderness, Guarding, Rebound Back: positive: Nml inspection. negative: CVA tenderness (R), CVA tenderness (L) Skin: positive: Color nml, No rash, Warm, Dry. negative: Cyanosis, Diaphoresis, Pallor Extremities: positive: Non-tender. negative: Calf tenderness, Joint swelling, Billy's sign/cords Neurologic/Psychiatric: positive: Oriented x3, Sensation nml. negative: Weakness, Sensory loss, Facial droop, Slurred/abnml speech, Depressed mood/affect - Lab Results Fish Bones: 05/15/18 07:52 05/15/18 07:52 Other Labs: Lab Results x24hrs 05/15/18 05/15/18 Range/Units 07:52 07:52 WBC 5.6 (4.8-10.8) x10^3/uL RBC 2.98 L (4.20-5.40) 10^6/uL Hgb 9.9 L (12.0-16.0) g/dL Hct 28.6 L (37.0-47.0) % MCV 96.1 (81.0-99.0) fL MCH 33.3 H (27.0-31.0) pg MCHC 34.6 (32.0-36.0) g/dL RDW 13.3 (12.0-15.0) % Plt Count 586 H (130-450) 10^3/uL MPV 6.9 L (7.9-10.8) fL Neut # (Auto) 4.1 (1.5-6.6) 10^3/uL Lymph # (Auto) 0.6 L (1.5-3.5) 10^3/uL [place] # (Auto) 0.7 (0.0-1.0) 10^3/uL Eos # (Auto) 0.2 (0.0-0.7) 10^3/uL Baso # (Auto) 0.1 (0.0-0.1) 10^3/uL Absolute Nucleated RBC 0.01 x10^3/uL Nucleated RBC % 0.1 /100WBC Sodium 136 (135-145) mmol/L Potassium 4.4 (3.5-5.0) mmol/L Chloride 99 L (101-111) mmol/L Carbon Dioxide 27 (21-32) mmol/L Anion Gap 10.0 (6-13) BUN 15 (6-20) mg/dL Creatinine 0.6 (0.4-1.0) mg/dL Estimated GFR (MDRD) 94 (>89) Glucose 108 H (70-100) mg/dL Calcium 8.4 L (8.5-10.3) mg/dL Magnesium 2.2 (1.7-2.8) mg/dL Total Bilirubin 0.9 (0.2-1.0) mg/dL AST 59 H (10-42) IU/L ALT 60 (10-60) IU/L Alkaline Phosphatase 80 (42-121) IU/L Total Protein 5.5 L (6.7-8.2) g/dL Albumin 2.6 L (3.2-5.5) g/dL Globulin 2.9 (2.1-4.2) g/dL Albumin/Globulin Ratio 0.9 L (1.0-2.2) ABX Reporting Has patient been on IV antibiotics over the past 48 hours?: No Assessment/Plan - Problem List (1) Atrial fibrillation with rapid ventricular response Impression: Impression: 05/15 pt's Afib with RVR seems to be controlled with Cardizem and Metoprolol, but Metoprolol was d/c then pt's pulse run at 150-160 IV of metoprolol, restore Metoprolol PO, continue Cardizem PO, and once IV of Cardizem add tele vital monitor The patient was cut back to just diltiazem CD at 120 mg PO daily today as she was medically cleared to return home with her . She is no longer on telemetry and this condition is stable. A prescription has been sent to her pharmacy for the oral diltiazem. Plan: continue medication daily and monitor vital signs. (2) Fall from slip, trip, or stumble Impression: continue fall precaution, and educate pt for fall prevention The patient described how she was in her kitchen with the tube washer door open, did not see it and accidentally tripped over it. She fell on her left hip injuring her left hip and left wrist. She saw her PCP who sent her to orthopedic surgery to evaluate her left wrist. After getting back home, she had increased pain to her left hip, and was non-ambulatory. She is now post op after a left hip repair and will need SNF after this hospital stay-but due to financial constraints and the lack of insurance, she will return home with her . Plans were for her to return home today, but at the last moment, the patient's refused to bring her home. Plan: Continue fall precautions. (3) Distal radius fracture, left Impression: continue Cast care. intact sensation and motorthe distal of left hand The patient fell after stumbling over an open stock dealer in her kitchen, which caused her to fracture her left wrist. She was set with a cast as an out patient via ortho surgery. Her left hand remains very discolored, warm and non- tender. A call was made to Dr. Donahue in regards to some skin irritation noted around her left thumb related to the cast. Dr. Donahue paid a visit and made an adjustment to her cast, so she is much more comfortable now. Plan: Continue to monitor, PT/ OT recommendations. (4) Fracture of femoral neck, left, closed Impression: 05/15 continue PT/OT pt's had stroke today, pt's d/c care plan has to be changed, plan to SNF, will discuss with pt and family The patient stumbled over her stock dealer at home, fell to her left side and did not notice her left hip soreness right at first. After at least 24 hours, the patient could no longer walk. She is now post op after a left hip repair with Dr. Banuelos. The post op course was uneventful so far with minimal blood loss. She can move to the chair with moderate assistance from nursing or PT. She will not go to SNF since financial arrangements will not be made by the family. Plan: Continue ASA and post op care. (5) Glaucoma Impression: recommend pt follow up her technologist infectious disease for her concerns The patient is prescribed both Xalatan and Alphagan at home for this condition that has affected her vision. She lives independently with her . Her poor eyesight remains as her #1 complaint as to her recovery. 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 Plan: Continue meds, and fall precautions. (6) Hypertension Impression: stable, continue vital monitor The patient does not have any documented history of this and is not prescribed any medications at home. The patient remains on diltiazem, which has been sent to her pharmacy. Plan: Continue to monitor and give daily med. (7) Pulmonary edema Impression: stable now The patient was thought to have crackles in her low lung lobes as per anesthesia as his pre-op exam. A chest x-ray was obtained to rule out pneumonia. There was mild pulmonary vascular congestion noted in her bilateral lobes. Final echo results show an RVSP at rest of 39 mmHg indicating mild pulmonary HTN. Plan: Continue to monitor. (8) UTI (urinary tract infection) Impression: d/c antibiotics, pt has been rocephin for a week. WBC is normal, no dysuria, Cultures are show no identifiable pathogen. Urine results showed a UTI. Cultures are show no identifiable pathogen. The patient denies dysuria, but admits to occasional leaking. The patient was treated with Rocephin IV, then discontinued as her treatment is no longer needed. Plan: Continue to monitor.
[2018-05-15] MEDS: SODIUM CHLORIDE FLUSH 0.9% 10 ML SYRINGE IVP PRN (14:13)
[2018-05-15] MEDS: MIN OIL/DIMETHICON/COCONUT OIL 92 GM TUBE TOP SCH (20:48)
[2018-05-15] MEDS: oxyCODONE 5 MG TABLET PO PRN (20:48)
[2018-05-15] MEDS: LATANOPROST 0.005% OPHTH DROPS EACHEYE SCH (20:48)
[2018-05-15] MEDS: METOPROLOL SUCCINATE 50 MG TABLET PO SCH (20:51)
[2018-05-16 06:14] LABS: BASOPHILS % (AUTO) 0.7 %; EOSINOPHILS # (AUTO) 0.2 10^3/uL (0.0-0.7); EOSINOPHILS % (AUTO) 3.2 %; HGB - HEMOGLOBIN 10.3 g/dL (12.0-16.0); LYMPHOCYTES # (AUTO) 0.9 10^3/uL (1.5-3.5); LYMPHOCYTES % (AUTO) 14.5 %; MEAN CORPUSCULAR HEMOGLOBIN 32.6 pg (27.0-31.0); MEAN CORPUSCULAR HGB CONC 33.7 g/dL (32.0-36.0); MEAN CORPUSCULAR VOLUME 96.9 fL (81.0-99.0); MEAN PLATELET VOLUME 7.1 fL (7.9-10.8); MONOCYTES # (AUTO) 0.6 10^3/uL (0.0-1.0); MONOCYTES % (AUTO) 10.1 %; NEUTROPHILS # (AUTO) 4.5 10^3/uL (1.5-6.6); NEUTROPHILS % (AUTO) 71.5 %; PLT - PLATELET COUNT 674 10^3/uL (130-450); RED BLOOD COUNT 3.16 10^6/uL (4.20-5.40); RED CELL DISTRIBUTION WIDTH 13.6 % (12.0-15.0); WHITE BLOOD COUNT 6.3 x10^3/uL (4.8-10.8)
[2018-05-16 06:28] LABS: ALBUMIN 2.8 g/dL (3.2-5.5); ALBUMIN/GLOBULIN RATIO 0.9 (1.0-2.2); BILIRUBIN,TOTAL 0.8 mg/dL (0.2-1.0); CALCIUM 8.4 mg/dL (8.5-10.3); CREATININE 0.8 mg/dL (0.4-1.0); MAGNESIUM 2.2 mg/dL (1.7-2.8); TOTAL PROTEIN 5.8 g/dL (6.7-8.2)
[2018-05-16] MEDS ORDERED: diltiaZEM CD 240 MG CAPSULE PO SCH ×2 (07:33→07:36)
[2018-05-16] MEDS: MULTIVITAMIN W/MINERALS TABLET PO SCH (08:34)
[2018-05-16] MEDS: CALCIUM CITRATE 250 MG TABLET PO SCH ×2 (08:35→20:16)
[2018-05-16] MEDS: CHOLECALCIFEROL 1,000 UNIT TABLET PO SCH (08:35)
[2018-05-16] MEDS: MAGNESIUM OXIDE 400 MG TABLET PO SCH ×2 (08:35→20:17)
[2018-05-16] MEDS: SACCHAROMYCES BOULARDII 250 MG CAPSULE PO SCH ×2 (08:35→17:18)
[2018-05-16] MEDS: BRIMONIDINE 0.1% OPHTH DROPS 5 ML EACHEYE SCH ×2 (08:41→20:20)
[2018-05-16] MEDS: MIN OIL/DIMETHICON/COCONUT OIL 92 GM TUBE TOP SCH ×2 (08:43→20:14)
[2018-05-16] MEDS: POLYETHYLENE GLYCOL 3350 17 GM PACKET PO SCH (08:43)
[2018-05-16] MEDS: METOPROLOL SUCCINATE 50 MG TABLET PO SCH ×2 (08:46→20:18)
[2018-05-16] MEDS ORDERED: diltiaZEM INJ 5 MG/ML VIAL IVP ONE ×2 (11:38→16:48)
[2018-05-16] MEDS ORDERED: SODIUM CHLORIDE FLUSH 0.9% 10 ML SYRINGE ONE ×2 (12:09→17:12)
--- NOTE | 2018-05-16 13:56 | PROVIDER PROGRESS NOTE ---
Subjective - Prog Note Date Prog Note Date: 05/16/18 - Subjective Pt reports feeling: No change Subjective: pt's afib RVR, HR is up to 150 again, even we restore metoprolol, add Cardizem 60 first then 30 mg PO Q6H. pt is asymptomatic, denies of palpitation, CP, SOB, dizziness, diaphoresis. Current Medications - Current Medications Current Medications: Active Medications Acetaminophen (Tylenol) 650 - 975 mg PO Q4HR PRN PRN Reason: PAIN Last Admin: 05/13/18 10:16 Dose: 650 mg Bisacodyl (Dulcolax Supp) 10 mg [place] DAILY PRN PRN Reason: Constipation Brimonidine Tartrate (Alphagan P 0.1% Ophth Drops) 1 drops EACHEYE BID [facility] Last Admin: 05/16/18 08:41 Dose: 1 drops Calcium Citrate () 250 mg PO BID [facility] Last Admin: 05/16/18 08:35 Dose: 250 mg Cholecalciferol (Vitamin D3) 2,000 unit PO DAILY [facility] Last Admin: 05/16/18 08:35 Dose: 2,000 unit Diltiazem HCl (Cardizem Cd) 240 mg PO DAILY [facility] Last Admin: 05/16/18 08:35 Dose: 240 mg Docusate Sodium (Colace 100mg Capsule) 100 mg PO BID PRN PRN Reason: Constipation Latanoprost (Xalatan Ophth Drops) 1 drops EACHEYE QPM [facility] Last Admin: 05/15/18 20:48 Dose: 1 drops Magnesium Oxide (Mag Ox) 400 mg PO BID [facility] Last Admin: 05/16/18 08:35 Dose: 400 mg Metoprolol Succinate (Toprol Xl) 50 mg PO BID [facility] Last Admin: 05/16/18 08:46 Dose: 50 mg Mineral Oil (Cavilon) 1 applic TOP BID [facility] Last Admin: 05/16/18 08:43 Dose: 1 applic Morphine Sulfate (Morphine (Carpuject)) 2 mg IVP Q2HR PRN PRN Reason: PAIN Multivitamins/Minerals (Theragran M) 1 tab PO DAILYWM [facility] Last Admin: 05/16/18 08:34 Dose: 1 tab Ondansetron HCl (Zofran Inj) 4 mg IVP Q6HR PRN PRN Reason: Nausea / Vomiting Oxycodone HCl (Roxicodone) 5 mg PO Q4HR PRN PRN Reason: PAIN Last Admin: 05/15/18 20:48 Dose: 5 mg Polyethylene Glycol (Miralax) 17 gm PO DAILY [facility] Last Admin: 05/16/18 08:43 Dose: Not Given Prochlorperazine Edisylate (Compazine Inj) 10 mg IVP Q6HR PRN PRN Reason: Nausea / Vomiting Saccharomyces Boulardii (Florastor) 250 mg PO BIDWM [facility] Last Admin: 05/16/18 08:35 Dose: 250 mg Senna (Senokot) 17.2 mg PO Q12H PRN PRN Reason: Constipation Brimonidine 0.1% Ophth Drops [Alphagan P 0.1% Ophth Drops] 1 drop LEFTEYE BID 06/05/14 Latanoprost 0.005% Ophth Drops [Xalatan Ophth Drops] 1 drop LEFTEYE QPM 06/05/14 Objective - Vital Signs/Intake & Output Reviewed Vital Signs: Yes Vital Signs: Vital Signs x48h Temp Pulse Pulse Pulse Pulse Pulse Resp 05/16/18 13:47 76 05/16/18 13:20 77 05/16/18 13:04 76 05/16/18 12:45 37.1 C 78 20 05/16/18 12:29 77 05/16/18 12:23 77 05/16/18 12:14 107 H 05/16/18 11:20 54 L 61 05/16/18 10:24 151 H 05/16/18 07:16 36.6 C 152 H 22 05/16/18 06:26 05/16/18 06:00 36.6 C 155 H 20 BP BP BP BP Pulse Ox 05/16/18 13:47 117/51 L 05/16/18 13:20 108/52 L 05/16/18 13:04 107/49 L 05/16/18 12:45 109/55 L 93 05/16/18 12:29 107/53 L 05/16/18 12:23 102/49 L 05/16/18 12:14 104/54 L 05/16/18 11:20 114/49 L 104/54 L 05/16/18 10:24 115/62 05/16/18 07:16 115/74 95 05/16/18 06:26 121/75 05/16/18 06:00 121/75 98 Intake & Output: Intake & Output 05/13/18 05/14/18 05/15/18 05/16/18 23:59 23:59 23:59 23:59 Intake Total 960 1490 1670 660 Balance 960 1490 1670 660 - Objective General Appearance: positive: No acute distress, Alert. negative: Lethargic Eyes Bilateral: positive: Normal inspection, PERRL, No lid inflammation, Conjunctivae nml ENT: positive: ENT inspection nml, Pharynx nml, No signs of dehydration. negati ve: Purulent nasal drainage, Pharyngeal erythema, Oral lesions Neck: positive: Nml inspection, Thyroid nml, No JVD, Trachea midline. negative: Thyromegaly, Lymphadenopathy (R), Lymphadenopathy (L), Stiff neck, Swelling/bruising, Tracheal deviation Respiratory: positive: Chest non-tender, No respiratory distress, Breath sounds nml. negative: Wheezes, Rales, Rhonchi Cardiovascular: positive: No murmur, No gallop, Irregularly irregular, Tachycardia. negative: Extrasystoles, Bradycardia, Systolic murmur, Diastolic murmur Peripheral Pulses: 2+ Radial (R), 2+ Radial (L), 2+ Dorsalis pedis (R), 2+ Dorsalis pedis (L) Abdomen: positive: Non-tender, No organomegaly, Nml bowel sounds, No distention. negative: Tenderness, Guarding, Rebound Back: positive: Nml inspection. negative: CVA tenderness (R), CVA tenderness (L) Skin: positive: Color nml, No rash, Warm, Dry. negative: Cyanosis, Diaphoresis, Pallor Extremities: positive: Non-tender, Nml appearance. negative: Calf tenderness, Joint swelling, Billy's sign/cords Neurologic/Psychiatric: positive: Oriented x3, Sensation nml, Mood/affect nml. negative: Weakness, Sensory loss, Facial droop, Slurred/abnml speech, Depressed mood/affect - Lab Results Fish Bones: 05/16/18 05:16 05/16/18 05:16 Other Labs: Lab Results x24hrs 05/16/18 05/16/18 Range/Units 05:16 05:16 WBC 6.3 (4.8-10.8) x10^3/uL RBC 3.16 L (4.20-5.40) 10^6/uL Hgb 10.3 L (12.0-16.0) g/dL Hct 30.6 L (37.0-47.0) % MCV 96.9 (81.0-99.0) fL MCH 32.6 H (27.0-31.0) pg MCHC 33.7 (32.0-36.0) g/dL RDW 13.6 (12.0-15.0) % Plt Count 674 H (130-450) 10^3/uL MPV 7.1 L (7.9-10.8) fL Neut # (Auto) 4.5 (1.5-6.6) 10^3/uL Lymph # (Auto) 0.9 L (1.5-3.5) 10^3/uL [place] # (Auto) 0.6 (0.0-1.0) 10^3/uL Eos # (Auto) 0.2 (0.0-0.7) 10^3/uL Baso # (Auto) 0.0 (0.0-0.1) 10^3/uL Absolute Nucleated RBC 0.01 x10^3/uL Nucleated RBC % 0.1 /100WBC Sodium 135 (135-145) mmol/L Potassium 4.4 (3.5-5.0) mmol/L Chloride 99 L (101-111) mmol/L Carbon Dioxide 28 (21-32) mmol/L Anion Gap 8.0 (6-13) BUN 15 (6-20) mg/dL Creatinine 0.8 (0.4-1.0) mg/dL Estimated GFR (MDRD) 68 L (>89) Glucose 114 H (70-100) mg/dL Calcium 8.4 L (8.5-10.3) mg/dL Magnesium 2.2 (1.7-2.8) mg/dL Total Bilirubin 0.8 (0.2-1.0) mg/dL AST 56 H (10-42) IU/L ALT 56 (10-60) IU/L Alkaline Phosphatase 95 (42-121) IU/L Total Protein 5.8 L (6.7-8.2) g/dL Albumin 2.8 L (3.2-5.5) g/dL Globulin 3.0 (2.1-4.2) g/dL Albumin/Globulin Ratio 0.9 L (1.0-2.2) ABX Reporting Has patient been on IV antibiotics over the past 48 hours?: No Assessment/Plan - Problem List (1) Atrial fibrillation with rapid ventricular response Impression: Impression: 05/16 it is difficult to control pt's HR. pt is asymptomatic. When IV of cardizem, pt's SBP drop to 69, when add additional PO of cardizem, pt's pulse drop to 52, pt is not well response to IV of metoprolol. Pt's HR again is 152 at morning, even restore PO metoprolol, PO cardizem, and additional PO cardizem. increase cardizem to 240 mg daily IV of cardizem 10 mg, it seems pt is well response to IV of Cardizem. will consider increase PO metoprolol to 100mg bid if HR is still not well controlled 05/15 pt's Afib with RVR seems to be controlled with Cardizem and Metoprolol, but Metoprolol was d/c then pt's pulse run at 150-160 IV of metoprolol, restore Metoprolol PO, continue Cardizem PO, and once IV of Cardizem add tele vital monitor The patient was cut back to just diltiazem CD at 120 mg PO daily today as she was medically cleared to return home with her . She is no longer on telemetry and this condition is stable. A prescription has been sent to her pharmacy for the oral diltiazem. Plan: continue medication daily and monitor vital signs. (2) Fall from slip, trip, or stumble Impression: continue fall precaution, and educate pt for fall prevention The patient described how she was in her kitchen with the bus washer door open, did not see it and accidentally tripped over it. She fell on her left hip injuring her left hip and left wrist. She saw her PCP who sent her to orthopedic surgery to evaluate her left wrist. After getting back home, she had increased pain to her left hip, and was non-ambulatory. She is now post op after a left hip repair and will need SNF after this hospital stay-but due to financial constraints and the lack of insurance, she will return home with her . Plans were for her to return home today, but at the last moment, the patient's refused to bring her home. Plan: Continue fall precautions. (3) Distal radius fracture, left Impression: continue Cast care. intact sensation and motorthe distal of left hand The patient fell after stumbling over an open grain loader in her kitchen, which caused her to fracture her left wrist. She was set with a cast as an out patien t via ortho surgery. Her left hand remains very discolored, warm and non- tender. A call was made to Dr. Donahue in regards to some skin irritation noted around her left thumb related to the cast. Dr. Donahue paid a visit and made an adjustment to her cast, so she is much more comfortable now. Plan: Continue to monitor, PT/ OT recommendations. (4) Fracture of femoral neck, left, closed Impression: 05/16 pt and pt's daughter request pt to be d/c to home, and her daughter will be the main caregiver continue PT/OT evaluation and treatment, follow up recommendation. 05/15 continue PT/OT pt's had stroke today, pt's d/c care plan has to be changed, plan to SNF, will discuss with pt and family The patient stumbled over her grain loader at home, fell to her left side and did not notice her left hip soreness right at first. After at least 24 hours, the patient could no longer walk. She is now post op after a left hip repair with Dr. Banuelos. The post op course was uneventful so far with minimal blood loss. She can move to the chair with moderate assistance from nursing or PT. She will not go to SNF since financial arrangements will not be made by the family. Plan: Continue ASA and post op care. (5) Glaucoma Impression: 05/16 recommend pt follow up her criminal court judge for her concerns The patient is prescribed both Xalatan and Alphagan at home for this condition that has affected her vision. She lives independently with her . Her poor eyesight remains as her #1 complaint as to her recovery. 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 Plan: Continue meds, and fall precautions. (6) Hypertension Impression: stable, continue vital monitor The patient does not have any documented history of this and is not prescribed any medications at home. The patient remains on diltiazem, which has been sent to her pharmacy. Plan: Continue to monitor and give daily med. (7) Pulmonary edema Impression: stable now The patient was thought to have crackles in her low lung lobes as per anesthesia as his pre-op exam. A chest x-ray was obtained to rule out pneumonia. There was mild pulmonary vascular congestion noted in her bilateral lobes. Final echo results show an RVSP at rest of 39 mmHg indicating mild pulmonary HTN. Plan: Continue to monitor. (8) UTI (urinary tract infection) Impression: d/c antibiotics, pt has been rocephin for a week. WBC is normal, no dysuria, Cultures are show no identifiable pathogen. Urine results showed a UTI. Cultures are show no identifiable pathogen. The patient denies dysuria, but admits to occasional leaking. The patient was treated with Rocephin IV, then discontinued as her treatment is no longer needed.
[2018-05-16] MEDS: LATANOPROST 0.005% OPHTH DROPS EACHEYE SCH (20:15)
[2018-05-17] MEDS ORDERED: SODIUM CHLORIDE FLUSH 0.9% 10 ML SYRINGE ONE (00:11)
[2018-05-17] MEDS: DIGOXIN 500 MCG/2 ML AMP IVP SCH ×2 (03:46→10:58)
[2018-05-17 06:04] LABS: BASOPHILS % (AUTO) 0.4 %; EOSINOPHILS % (AUTO) 0.4 %; HGB - HEMOGLOBIN 10.2 g/dL (12.0-16.0); LYMPHOCYTES # (AUTO) 0.9 10^3/uL (1.5-3.5); LYMPHOCYTES % (AUTO) 10.5 %; MEAN CORPUSCULAR HEMOGLOBIN 32.7 pg (27.0-31.0); MEAN CORPUSCULAR HGB CONC 33.9 g/dL (32.0-36.0); MEAN CORPUSCULAR VOLUME 96.6 fL (81.0-99.0); MEAN PLATELET VOLUME 6.7 fL (7.9-10.8); MONOCYTES # (AUTO) 0.6 10^3/uL (0.0-1.0); MONOCYTES % (AUTO) 7.3 %; NEUTROPHILS # (AUTO) 6.8 10^3/uL (1.5-6.6); NEUTROPHILS % (AUTO) 81.4 %; PLT - PLATELET COUNT 663 10^3/uL (130-450); RED BLOOD COUNT 3.13 10^6/uL (4.20-5.40); RED CELL DISTRIBUTION WIDTH 13.6 % (12.0-15.0); WHITE BLOOD COUNT 8.3 x10^3/uL (4.8-10.8)
[2018-05-17 06:16] LABS: ALBUMIN 2.6 g/dL (3.2-5.5); ALBUMIN/GLOBULIN RATIO 0.8 (1.0-2.2); BILIRUBIN,TOTAL 0.7 mg/dL (0.2-1.0); CALCIUM 8.3 mg/dL (8.5-10.3); CREATININE 0.6 mg/dL (0.4-1.0); TOTAL PROTEIN 5.7 g/dL (6.7-8.2)
[2018-05-17] MEDS: METOPROLOL SUCCINATE 50 MG TABLET PO SCH ×2 (10:27→21:43)
[2018-05-17] MEDS: diltiaZEM CD 180 MG CAPSULE PO SCH (10:27)
[2018-05-17] MEDS: MULTIVITAMIN W/MINERALS TABLET PO SCH (10:48)
[2018-05-17] MEDS: SACCHAROMYCES BOULARDII 250 MG CAPSULE PO SCH ×2 (10:48→17:34)
[2018-05-17] MEDS: CALCIUM CITRATE 250 MG TABLET PO SCH ×2 (10:58→21:43)
[2018-05-17] MEDS: BRIMONIDINE 0.1% OPHTH DROPS 5 ML EACHEYE SCH ×2 (10:58→21:44)
[2018-05-17] MEDS: CHOLECALCIFEROL 1,000 UNIT TABLET PO SCH (10:58)
[2018-05-17] MEDS: ENOXAPARIN 30 MG/0.3 ML SYRINGE SUBQ SCH (10:58)
[2018-05-17] MEDS: POLYETHYLENE GLYCOL 3350 17 GM PACKET PO SCH (10:59)
[2018-05-17] MEDS: MAGNESIUM OXIDE 400 MG TABLET PO SCH ×2 (10:59→21:43)
[2018-05-17] MEDS: MIN OIL/DIMETHICON/COCONUT OIL 92 GM TUBE TOP SCH ×2 (10:59→21:44)
--- NOTE | 2018-05-17 15:40 | PROVIDER PROGRESS NOTE ---
Subjective - Prog Note Date Prog Note Date: 05/17/18 - Subjective Pt reports feeling: No change Subjective: pt refused to take meds, tele and IV of meds. pt told to me "please leave me alone." I called pt's daughter, and updated pt's medical conditions. her daughter will come to hospital to talk with pt. pt's pulse is still various. Current Medications - Current Medications Current Medications: Active Medications Acetaminophen (Tylenol) 650 - 975 mg PO Q4HR PRN PRN Reason: PAIN Last Admin: 05/13/18 10:16 Dose: 650 mg Bisacodyl (Dulcolax Supp) 10 mg [place] DAILY PRN PRN Reason: Constipation Brimonidine Tartrate (Alphagan P 0.1% Ophth Drops) 1 drops EACHEYE BID [facility] Last Admin: 05/17/18 10:58 Dose: Not Given Calcium Citrate () 250 mg PO BID [facility] Last Admin: 05/17/18 10:58 Dose: Not Given Cholecalciferol (Vitamin D3) 2,000 unit PO DAILY [facility] Last Admin: 05/17/18 10:58 Dose: Not Given Diltiazem HCl (Cardizem Cd) 360 mg PO DAILY [facility] Last Admin: 05/17/18 10:27 Dose: 360 mg Docusate Sodium (Colace 100mg Capsule) 100 mg PO BID PRN PRN Reason: Constipation Enoxaparin Sodium (Lovenox) 30 mg SUBQ DAILY [facility] Last Admin: 05/17/18 10:58 Dose: Not Given Latanoprost (Xalatan Ophth Drops) 1 drops EACHEYE QPM [facility] Last Admin: 05/16/18 20:15 Dose: 1 drops Magnesium Oxide (Mag Ox) 400 mg PO BID [facility] Last Admin: 05/17/18 10:59 Dose: Not Given Metoprolol Succinate (Toprol Xl) 100 mg PO BID [facility] Last Admin: 05/17/18 10:27 Dose: 100 mg Mineral Oil (Cavilon) 1 applic TOP BID [facility] Last Admin: 05/17/18 10:59 Dose: Not Given Morphine Sulfate (Morphine (Carpuject)) 2 mg IVP Q2HR PRN PRN Reason: PAIN Multivitamins/Minerals (Theragran M) 1 tab PO DAILYWM [facility] Last Admin: 05/17/18 10:48 Dose: Not Given Ondansetron HCl (Zofran Inj) 4 mg IVP Q6HR PRN PRN Reason: Nausea / Vomiting Oxycodone HCl (Roxicodone) 5 mg PO Q4HR PRN PRN Reason: PAIN Last Admin: 05/15/18 20:48 Dose: 5 mg Polyethylene Glycol (Miralax) 17 gm PO DAILY [facility] Last Admin: 05/17/18 10:59 Dose: Not Given Prochlorperazine Edisylate (Compazine Inj) 10 mg IVP Q6HR PRN PRN Reason: Nausea / Vomiting Saccharomyces Boulardii (Florastor) 250 mg PO BIDWM [facility] Last Admin: 05/17/18 10:48 Dose: Not Given Senna (Senokot) 17.2 mg PO Q12H PRN PRN Reason: Constipation Brimonidine 0.1% Ophth Drops [Alphagan P 0.1% Ophth Drops] 1 drop LEFTEYE BID 06/05/14 Latanoprost 0.005% Ophth Drops [Xalatan Ophth Drops] 1 drop LEFTEYE QPM 06/05/14 Objective - Vital Signs/Intake & Output Reviewed Vital Signs: Yes Vital Signs: Vital Signs x48h Temp Pulse Resp BP BP Pulse Ox 05/17/18 13:00 51 L 16 134/64 H 96 05/17/18 07:47 36.6 C 147 H 16 126/77 96 05/17/18 07:42 36.6 C 145 H 16 121/77 95 Intake & Output: Intake & Output 05/14/18 05/15/18 05/16/18 05/17/18 23:59 23:59 23:59 23:59 Intake Total 1490 1670 960 290 Balance 1490 1670 960 290 - Objective General Appearance: positive: No acute distress, Alert. negative: Lethargic Eyes Bilateral: positive: No lid inflammation, Conjunctivae nml ENT: positive: ENT inspection nml, Pharynx nml, No signs of dehydration. negative: Oral lesions, Dry mucous membranes Neck: positive: Nml inspection, Thyroid nml, No JVD, Trachea midline. negative: Thyromegaly, Lymphadenopathy (R), Lymphadenopathy (L), Stiff neck, Swelling/bruising, Tracheal deviation Respiratory: positive: Chest non-tender, No respiratory distress, Breath sounds nml. negative: Wheezes, Rales, Rhonchi Cardiovascular: positive: Regular rate & rhythm, No murmur, No gallop. negative: Irregularly irregular, Extrasystoles, Tachycardia, Bradycardia, JVD present, Systolic murmur, Diastolic murmur Peripheral Pulses: 2+ Radial (R), 2+ Radial (L), 2+ Dorsalis pedis (R), 2+ Dorsalis pedis (L) Abdomen: positive: Non-tender, No organomegaly, Nml bowel sounds, No distention. negative: Tenderness, Guarding, Rebound Back: positive: Nml inspection. negative: CVA tenderness (R), CVA tenderness (L) Skin: positive: Color nml, No rash, Warm, Dry. negative: Cyanosis, Diaphoresis, Pallor Extremities: positive: Non-tender, Nml appearance. negative: Calf tenderness, Joint swelling, Billy's sign/cords Neurologic/Psychiatric: positive: Oriented x3, Sensation nml, Mood/affect nml. negative: Weakness, Sensory loss, Facial droop, Slurred/abnml speech, Depressed mood/affect - Lab Results Fish Bones: 05/17/18 05:35 05/17/18 05:35 Other Labs: Lab Results x24hrs 05/17/18 05/17/18 Range/Units 05:35 05:35 WBC 8.3 (4.8-10.8) x10^3/uL RBC 3.13 L (4.20-5.40) 10^6/uL Hgb 10.2 L (12.0-16.0) g/dL Hct 30.2 L (37.0-47.0) % MCV 96.6 (81.0-99.0) fL MCH 32.7 H (27.0-31.0) pg MCHC 33.9 (32.0-36.0) g/dL RDW 13.6 (12.0-15.0) % Plt Count 663 H (130-450) 10^3/uL MPV 6.7 L (7.9-10.8) fL Neut # (Auto) 6.8 H (1.5-6.6) 10^3/uL Lymph # (Auto) 0.9 L (1.5-3.5) 10^3/uL [place] # (Auto) 0.6 (0.0-1.0) 10^3/uL Eos # (Auto) 0.0 (0.0-0.7) 10^3/uL Baso # (Auto) 0.0 (0.0-0.1) 10^3/uL Absolute Nucleated RBC 0.01 x10^3/uL Nucleated RBC % 0.1 /100WBC Sodium 135 (135-145) mmol/L Potassium 4.3 (3.5-5.0) mmol/L Chloride 99 L (101-111) mmol/L Carbon Dioxide 27 (21-32) mmol/L Anion Gap 9.0 (6-13) BUN 18 (6-20) mg/dL Creatinine 0.6 (0.4-1.0) mg/dL Estimated GFR (MDRD) 94 (>89) Glucose 112 H (70-100) mg/dL Calcium 8.3 L (8.5-10.3) mg/dL Total Bilirubin 0.7 (0.2-1.0) mg/dL AST 55 H (10-42) IU/L ALT 58 (10-60) IU/L Alkaline Phosphatase 96 (42-121) IU/L Total Protein 5.7 L (6.7-8.2) g/dL Albumin 2.6 L (3.2-5.5) g/dL Globulin 3.1 (2.1-4.2) g/dL Albumin/Globulin Ratio 0.8 L (1.0-2.2) ABX Reporting Has patient been on IV antibiotics over the past 48 hours?: No Assessment/Plan - Problem List (1) Atrial fibrillation with rapid ventricular response Impression: 05/17 pt refused to take meds, refuse to have Tele, refuse to have IV meds increase Cardizem CD to 360 mg daily increase Metoprolol to 100mg bid add digoxin pt need tele to be monitored 05/16 it is difficult to control pt's HR. pt is asymptomatic. When IV of cardizem, pt's SBP drop to 69, when add additional PO of cardizem, pt's pulse drop to 52, pt is not well response to IV of metoprolol. Pt's HR again is 152 at morning, even restore PO metoprolol, PO cardizem, and additional PO cardizem. increase cardizem to 240 mg daily IV of cardizem 10 mg, it seems pt is well response to IV of Cardizem. will consider increase PO metoprolol to 100mg bid if HR is still not well controlled 05/15 pt's Afib with RVR seems to be controlled with Cardizem and Metoprolol, but Metoprolol was d/c then pt's pulse run at 150-160 IV of metoprolol, restore Metoprolol PO, continue Cardizem PO, and once IV of Cardizem add tele vital monitor The patient was cut back to just diltiazem CD at 120 mg PO daily today as she was medically cleared to return home with her . She is no longer on telemetry and this condition is stable. A prescription has been sent to her pharmacy for the oral diltiazem. Plan: continue medication daily and monitor vital signs. (2) Fall from slip, trip, or stumble Impression: continue fall precaution, and educate pt for fall prevention The patient described how she was in her kitchen with the counter dish carrier door open, did not see it and accidentally tripped over it. She fell on her left hip injuring her left hip and left wrist. She saw her PCP who sent her to orthopedic surgery to evaluate her left wrist. After getting back home, she had increased pain to her left hip, and was non-ambulatory. She is now post op after a left hip repair and will need SNF after this hospital stay-but due to financial constraints and the lack of insurance, she will return home with her . Plans were for her to return home today, but at the last moment, the patient's refused to bring her home. Plan: Continue fall precautions. (3) Distal radius fracture, left Impression: continue Cast care. 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 She was set with a cast as an out patient via ortho surgery. Her left hand remains very discolored, warm and non- tender. A call was made to Dr. Donahue in regards to some skin irritation noted around her left thumb related to the cast. Dr. Donahue paid a visit and made an adjustment to her cast, so she is much more comfortable now. Plan: Continue to monitor, PT/ OT recommendations. (4) Fracture of femoral neck, left, closed Impression: 05/16 pt and pt's daughter request pt to be d/c to home, and her daughter will be the main caregiver continue PT/OT evaluation and treatment, follow up recommendation. 05/15 continue PT/OT pt's had stroke today, pt's d/c care plan has to be changed, plan to SNF, will discuss with pt and family The patient stumbled over her nuclear fuels research engineer at home, fell to her left side and did not notice her left hip soreness right at first. After at least 24 hours, the patient could no longer walk. She is now post op after a left hip repair with Dr. Banuelos. The post op course was uneventful so far with minimal blood loss. She can move to the chair with moderate assistance from nursing or PT. She will not go to SNF since financial arrangements will not be made by the family. Plan: Continue ASA and post op care. 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 She lives independently with her . Her poor eyesight remains as her #1 complaint as to her recovery. 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 Plan: Continue meds, and fall precautions. (6) Hypertension Impression: stable, continue vital monitor The patient does not have any documented history of this and is not prescribed any medications at home. The patient remains on diltiazem, which has been sent to her pharmacy. Plan: Continue to monitor and give daily med. (7) Pulmonary edema Impression: stable now The patient was thought to have crackles in her low lung lobes as per anesthesia as his pre-op exam. A chest x-ray was obtained to rule out pneumonia. There was mild pulmonary vascular congestion noted in her bilateral lobes. Final echo results show an RVSP at rest of 39 mmHg indicating mild pulmonary HTN. Plan: Continue to monitor. (8) UTI (urinary tract infection) Impression: d/c antibiotics, pt has been rocephin for a week. WBC is normal, no dysuria, Cultures are show no identifiable pathogen. Urine results showed a UTI. Cultures are show no identifiable pathogen. The patient denies dysuria, but admits to occasional leaking. The patient was treated with Rocephin IV, then discontinued as her treatment is no longer needed. (9) medial non-complaint 05/17 pt refused to take meds, refuse to have Tele, told me "leave me alone." called pt's daughter, she will come to see pt, will follow up
[2018-05-17] MEDS: LATANOPROST 0.005% OPHTH DROPS EACHEYE SCH (21:44)
[2018-05-17] MEDS: oxyCODONE 5 MG TABLET PO PRN (21:46)
[2018-05-18 06:48] LABS: BASOPHILS # (AUTO) 0.1 10^3/uL (0.0-0.1); BASOPHILS % (AUTO) 0.8 %; EOSINOPHILS # (AUTO) 0.1 10^3/uL (0.0-0.7); EOSINOPHILS % (AUTO) 1.4 %; LYMPHOCYTES # (AUTO) 0.9 10^3/uL (1.5-3.5); LYMPHOCYTES % (AUTO) 13.7 %; MEAN CORPUSCULAR HEMOGLOBIN 32.7 pg (27.0-31.0); MEAN CORPUSCULAR HGB CONC 33.7 g/dL (32.0-36.0); MEAN CORPUSCULAR VOLUME 97.1 fL (81.0-99.0); MEAN PLATELET VOLUME 6.7 fL (7.9-10.8); MONOCYTES # (AUTO) 0.5 10^3/uL (0.0-1.0); MONOCYTES % (AUTO) 7.8 %; NEUTROPHILS # (AUTO) 5.3 10^3/uL (1.5-6.6); NEUTROPHILS % (AUTO) 76.3 %; PLT - PLATELET COUNT 767 10^3/uL (130-450); RED BLOOD COUNT 3.36 10^6/uL (4.20-5.40); WHITE BLOOD COUNT 6.9 x10^3/uL (4.8-10.8)
[2018-05-18 06:58] LABS: ALBUMIN 2.7 g/dL (3.2-5.5); ALBUMIN/GLOBULIN RATIO 0.8 (1.0-2.2); BILIRUBIN,TOTAL 0.7 mg/dL (0.2-1.0); CALCIUM 8.6 mg/dL (8.5-10.3); CREATININE 0.7 mg/dL (0.4-1.0); TOTAL PROTEIN 5.9 g/dL (6.7-8.2)
[2018-05-18 08:01] VITALS: BP 127/60
[2018-05-18] MEDS: METOPROLOL SUCCINATE 50 MG TABLET PO SCH (08:12)
[2018-05-18] MEDS: CHOLECALCIFEROL 1,000 UNIT TABLET PO SCH (08:12)
[2018-05-18] MEDS: MAGNESIUM OXIDE 400 MG TABLET PO SCH (08:13)
[2018-05-18] MEDS: SACCHAROMYCES BOULARDII 250 MG CAPSULE PO SCH (08:13)
[2018-05-18] MEDS: diltiaZEM CD 180 MG CAPSULE PO SCH (08:13)
[2018-05-18] MEDS: MULTIVITAMIN W/MINERALS TABLET PO SCH (08:13)
[2018-05-18] MEDS: BRIMONIDINE 0.1% OPHTH DROPS 5 ML EACHEYE SCH (08:13)
[2018-05-18] MEDS: ENOXAPARIN 30 MG/0.3 ML SYRINGE SUBQ SCH (08:13)
[2018-05-18] MEDS: POLYETHYLENE GLYCOL 3350 17 GM PACKET PO SCH (08:13)
[2018-05-18] MEDS: CALCIUM CITRATE 250 MG TABLET PO SCH (08:13)
[2018-05-18] MEDS: MIN OIL/DIMETHICON/COCONUT OIL 92 GM TUBE TOP SCH (08:14)
[2018-05-18] MEDS ORDERED: DIGOXIN 125 MCG TABLET PO SCH (09:00)
--- NOTE | 2018-05-18 10:58 | Discharge Plan ---
"[facility] - Discharge Plan And Transition Orders Disposition: 03 SNF DC/Xfer Condition: Poor Allergies and Adverse Reactions: Allergies Allergy/AdvReac Type Severity Reaction Status Date / Time Penicillins Allergy Hives Verified 06/05/14 09:47 Sulfa (Sulfonamide AdvReac Rash Verified 05/08/18 10:48 Antibiotics) - SNF / [facility] Transition Orders Admit to (Facility): [facility] Under the care of (Name): Dr. Mario Alberto Alba Discharge Diagnosis: status post of left femoral neck fracture repair, afib with RVR, Glaucoma, HTN, UTI Medicare Certification Statement: I certify that Post Hospital usp care is medically necessary on a continuing basis for any of the conditions for which she/he is receiving care during hospitalization. Notify PCP of admission and forward orders to primary provider for signature. Weight on admission and: Daily Call PCP immediately if weight increases by: 2 kg Other Notification Orders: Call PCP immediately if patient develops dyspnea, chest pain/tightness or edema. House Bowel Program: Yes Additional Bowel Program Orders: If no BM after 2 days, nurse may give M.O.M. 30ml PO PRN and/or ducolax Supp 1 GA and/or ISAMAR 250mg P.O., and/or senna 1-2 tabs PO. On day 3 nurse may give repeat above order until residents constipation is resolved. Annual Influenza Vaccine (between Apr 26 and November 23): Yes Two-step PPD per [facility] [id number] or approved exception documents: Yes Treatments & Other Orders: may follow up PCP, Dr. Mario Alberto Alba, when Pt is arrival at [facility], may follow up [facility], Dr. Donahue, in 10 days. Oxygen Orders: follow up orthopedics care Lab Tests or X-ray Orders: follow up PCP Medication Orders: PLEASE REFER TO THE DISCHARGE MEDICATION LIST. Insulin Orders?: No - Medications New Prescriptions: Aspirin EC [Ecotrin] 325 mg PO DAILY #30 tablet Cholecalciferol (Vitamin D3) [Vitamin D3] 1,000 unit PO DAILY #30 capsule diltiaZEM CD [Cardizem Cd] 360 mg PO DAILY #20 capsule Metoprolol Succinate [Toprol Xl] 100 mg PO BID #40 tablet Multivitamin W/Minerals [Theragran M] 1 tab PO DAILYWM #30 tablet oxyCODONE [Roxicodone] 5 mg PO Q4H #25 tablet - Diet Type: Geriatric Texture: Regular Liquids: Thin May have monthly special meal: Yes - Therapies | Activity Therapy: Evaluation | Treat if indicated: PT, OT Rehabilitation Potential: Maximize functional status Activity: Activity as Tolerated Additional Instructions: may follow up PCP, Dr. Mario Alberto Alba, when Pt is arrival at [facility], may follow up [facility], Dr. Donahue, in 10 days."
--- NOTE | 2018-05-18 11:54 | DISCHARGE SUMMARY ---
Discharge Summary Discharge Date: 05/18/18 Discharging Provider: ROMERO Primary Care Provider: Dr. Mario Alberto Alba Condition at Discharge: Poor Discharge Disposition: 03 SNF DC/Xfer Discharge Facility Name: [facility] - DIAGNOSES Admission Diagnoses: (1) Fracture of femoral neck, left, closed (2) Distal radius fracture, left (3) Glaucoma Discharge Diagnoses with Status of Each Condition: (1) Atrial fibrillation with rapid ventricular response resolved. pt's HR is controlled around 60-80. 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 (6) medical non-compliance educate and advise pt for medical compliance. - HPI History of Present Illness: refer from Dr. Beltran's HPI for pt as the following: Patient is an 87 y/o female with history significant for glaucoma only, who presented to the ED with worsening pain in his left hip that is affecting her ability to walk. 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 She does not see well in the left eye and did not see the too. She went to see her PCP because of the wrist pain. Xray of the wrist had shown a fracture. She initially did not complain about the hip because the pain was mild. It has since progressed such that she is unable to bear weight now. In the ED, xray of the hip an pelvis showed a left femoral neck fracture, thus warranting her admission for intervention. She reports her pain about a 6/10. She denies chest pain, VICENTA, abd pain, nausea, vomiting or diarrhea. Her left hand/wrist is currently wrapped in bandage and very bruised/cyanotic appearing. The rest of her history is unremarkable - ALLERGIES Allergies/Adverse Reactions: Allergies Allergy/AdvReac Type Severity Reaction Status Date / Time Penicillins Allergy Hives Verified 06/05/14 09:47 Sulfa (Sulfonamide AdvReac Rash Verified 05/08/18 10:48 Antibiotics) - MEDICATIONS Home Medications: Ambulatory Orders Medication Instructions Recorded Confirmed Brimonidine 0.1% Ophth Drops 1 drop LEFTEYE BID 10/11/14 09/13/18 [Alphagan P 0.1% Ophth Drops] Latanoprost 0.005% Ophth Drops 1 drop LEFTEYE QPM 06/05/05/08/18 [Xalatan Ophth Drops] Aspirin EC [Ecotrin] 325 mg PO DAILY #30 tablet 05/14/18 Cholecalciferol (Vitamin D3) 1,000 unit PO DAILY #30 capsule 05/14/18 [Vitamin D3] Multivitamin W/Minerals [Theragran 1 tab PO DAILYWM #30 tablet 05/14/18 M] oxyCODONE [Roxicodone] 5 mg PO Q4H #25 tablet 05/14/18 Metoprolol Succinate [Toprol Xl] 100 mg PO BID #40 tablet 05/18/18 diltiaZEM CD [Cardizem Cd] 360 mg PO DAILY #20 capsule 05/18/18 - PHYSICAL EXAM AT DISCHARGE General Appearance: positive: No acute distress, Alert. negative: Lethargic Eyes Bilateral: positive: Normal inspection, PERRL, No lid inflammation, Conjunctivae nml ENT: positive: ENT inspection nml, Pharynx nml, No signs of dehydration. negative: Purulent nasal drainage, Pharyngeal erythema, Oral lesions Neck: positive: Nml inspection, Thyroid nml, No JVD, Trachea midline. negative: Thyromegaly, Lymphadenopathy (R), Lymphadenopathy (L), Stiff neck, Swelling/bruising, Tracheal deviation Respiratory: positive: Chest non-tender, No respiratory distress, Breath sounds nml. negative: Wheezes, Rales, Rhonchi Cardiovascular: positive: Regular rate & rhythm, No murmur, No gallop. negative: Irregularly irregular, Extrasystoles, Tachycardia, Bradycardia, Systolic murmur, Diastolic murmur Peripheral Pulses: positive: 2+ Abdomen: positive: Non-tender, No organomegaly, Nml bowel sounds, No distention. negative: Tenderness, Guarding, Rebound Back: positive: Nml inspection. negative: CVA tenderness (R), CVA tenderness (L) Skin: positive: Color nml, No rash, Warm, Dry. negative: Cyanosis, Diaphoresis, Pallor Extremities: positive: Non-tender, Full ROM, Nml appearance. negative: Calf tenderness, Joint swelling, Billy's sign/cords Neurologic/Psychiatric: positive: Oriented x3, Sensation nml, Mood/affect nml. negative: Weakness, Sensory loss, Facial droop, Slurred/abnml speech, Depressed mood/affect - LABS Result Diagrams: 05/18/18 06:18 05/18/18 06:18 - FOLLOW UP Follow Up: may follow up PCP, Dr. Mario Alberto Alba, when Pt is arrival at [facility], may follow up [facility], Dr. Donahue, in 10 days. - TIME SPENT Time Spent in Discharge (Minutes): 50
== END 2018-05-18 12:15 | DRG 469 ==
LOC: EDUNIT# → ED 10:33 → MS2 21:01
PROVIDERS: ADMIT Internal Medicine; ATTEND Nurse Practitioner Gerontology
PROC: 0SRS01A Replacement of Left Hip Joint, Femoral Surface with Metal Synthetic Substitute, Uncemented, Open Approach (ICD-10-PCS; principal; 2018-05-09 09:00)
PROC: 0PSJXZZ Reposition Left Radius, External Approach (ICD-10-PCS; 2018-05-09 09:00)
DX: S72.002A Fracture of unspecified part of neck of left femur, initial encounter for closed fracture (principal); W01.0XXA Fall on same level from slipping, tripping and stumbling without subsequent striking against object, initial encounter; S62.102A Fracture of unspecified carpal bone, left wrist, initial encounter for closed fracture; S72.012A Unspecified intracapsular fracture of left femur, initial encounter for closed fracture; J81.0 Acute pulmonary edema; S52.502A Unspecified fracture of the lower end of left radius, initial encounter for closed fracture; N30.00 Acute cystitis without hematuria; W18.09XA Striking against other object with subsequent fall, initial encounter; H40.9 Unspecified glaucoma; I48.91 Unspecified atrial fibrillation; I15.8 Other secondary hypertension; I27.20 Pulmonary hypertension, unspecified; I95.9 Hypotension, unspecified; Z51.5 Encounter for palliative care; Z66 Do not resuscitate; Z79.899 Other long term (current) drug therapy; Z91.14 Patient's other noncompliance with medication regimen
CPT/HCPCS: 36415; 71045; 72170; 80048; 80053; 81001; 81003; 83690; 83735; 83880; 84443; 84484; 85025; 85610; 85730; 86850; 86900; 86901; 87086; 93005; 93306; 96361; 96374; 96375; 96376; 99284